=== PATIENT | male | born 1960 | race Caucasian/White ===

== ENCOUNTER 2017-11-22 09:35 | Inpatient (IN) | payer MEDICAID, OTHER ==
[2017-11-22 09:45] VITALS: BMI 29.9
[2017-11-22] MEDS ORDERED: Sodium Chloride 0.9% 1,000 ML IV STA ×2 (10:37→12:32)
--- NOTE | 2017-11-22 10:58 | ED PDOC ---
HPI: General Adult Time Seen by Provider: 11/22/17 09:59 Chief Complaint (Nursing): Fever Chief Complaint (Provider): fever History Per: Patient, Roll Forger (Kim BECERRIL) History/Exam Limitations: no limitations Current Symptoms Are (Timing): Still Present Severity: Moderate Recently: Treated By A Physician Additional Complaint(s): 57yo male recent arrived from [place], [place] recently been treated for recurrent UTIs [place] completed course of Abx last tuesday, Urine culture then negative, now back in ID area, and notes fever for last few days and slight decrease in urine output. Denies abd pain, vomiting, diarrhea, syncope, cough, SOB, headache or body aches. Past Medical History Reviewed: Historical Data, Nursing Documentation, Vital Signs Vital Signs: Last Vital Signs Temp 97.9 F 11/25/17 08:04 Pulse 69 11/25/17 08:04 Resp 18 11/25/17 08:04 BP 122/66 11/25/17 08:04 Pulse Ox 97 11/25/17 08:04 - Medical History PMH: Diabetes, HTN, End Stage Renal Disease, Chronic Kidney Disease - Surgical History Other surgeries: renal transplant - Family History Family History: States: Unknown Family Hx - Living Arrangements Living Arrangements: With Family - Social History Current smoker - smoking cessation education provided: No - Home Medications Home Medications: Ambulatory Orders Medication Instructions Recorded Insulin Detemir [Levemir] 15 unit SC BID 11/20/15 Bisoprolol [Zebeta] 2.5 mg PO DAILY 11/22/17 Cilostazol [Pletal] 50 mg PO DAILY 11/22/17 Ferrous Sulfate [Feosol] 325 mg PO DAILY 11/22/17 Insulin Detemir [Levemir] 20 unit SC ACL 11/22/17 Mycophenolate Mofetil 500 mg PO QPM 11/22/17 [Mycophenolate Mofetil] Mycophenolate Mofetil 750 mg PO QAM 11/22/17 [Mycophenolate Mofetil] Omeprazole [Omeprazole] 20 mg PO DAILY 11/22/17 Tacrolimus [Prograf Cap] 2 mg PO Q12 11/22/17 hydroCHLOROthiazide [Hydrodiuril] 25 mg PO DAILY 11/22/17 predniSONE [predniSONE Tab] 2.5 mg PO DAILY 11/22/17 - Allergies Allergies/Adverse Reactions: Allergies Allergy/AdvReac Type Severity Reaction Status Date / Time iron AdvReac blood Verified 11/22/17 16:02 pressure drops Review of Systems Constitutional: Positive for: Fever, Chills, Weakness, Malaise ENT: Negative for: Throat Pain Cardiovascular: Negative for: Chest Pain Respiratory: Negative for: Cough Gastrointestinal: Negative for: Vomiting, Abdominal Pain Genitourinary Male: Positive for: Dysuria, Other (decreased urination). Negative for: Incontinence Musculoskeletal: Negative for: Neck Pain Skin: Negative for: Rash, Lesions Neurological: Negative for: Weakness, Numbness Psych: Negative for: Anxiety Physical Exam - Reviewed Nursing Documentation Reviewed: Yes Vital Signs Reviewed: Yes - Physical Exam Appears: Positive for: Well, Non-toxic, No Acute Distress Head Exam: Positive for: ATRAUMATIC, NORMAL INSPECTION, NORMOCEPHALIC Skin: Positive for: Normal Color, Warm, DRY Eye Exam: Positive for: EOMI, Normal appearance, PERRL ENT: Positive for: Normal ENT Inspection. Negative for: Pharyngeal Erythema Neck: Positive for: Normal, Painless ROM Cardiovascular/Chest: Positive for: Regular Rate, Rhythm Respiratory: Positive for: CNT, Normal Breath Sounds Pulses-Radial (L): 3+/4+ Pulses-Radial (R): 3+/4+ Gastrointestinal/Abdominal: Positive for: Soft. Negative for: Tenderness, Guarding Back: Positive for: Normal Inspection Extremity: Positive for: Normal ROM. Negative for: Tenderness, Swelling Neurologic/Psych: Positive for: Alert, Oriented. Negative for: Motor/Sensory Deficits - Laboratory Results Result Diagrams: 11/25/17 05:55 11/25/17 05:55 - ECG ECG: Positive for: Interpreted By Me ECG Rhythm: Positive for: Normal QRS, Normal ST Segment, Sinus Rhythm. 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 This is because of the severity of symptoms shown, intensity of services needed, and/or the medical risk in this patient being treated as an outpatient. - POA Present On Arrival: Poor Glycemic Control, Cath Associated UTI
[2017-11-22 11:45] LABS: VENOUS BLOOD GAS BASE EXCESS -2.8 mmol/L (0.0-2.0); VENOUS BLOOD GAS PCO2 41 mmHg (40-60); VENOUS BLOOD GAS PO2 36 mm/Hg (30-55); VENOUS BLOOD PH 7.35 (7.32-7.43)
[2017-11-22] MEDS ORDERED: Insulin Regular 100 units/ml IVP ONE (11:47)
[2017-11-22] MEDS ORDERED: Insulin Regular 100 units/ml ONE (11:53)
[2017-11-22 11:56] LABS: BASO # 0.1 K/uL (0.0-0.2); BASO % 0.7 % (0.0-2.0); EOS % 0.1 % (0.0-4.0); HEMOGLOBIN 10.2 g/dL (12.0-18.0); LYMPH # 0.8 K/uL (1.0-4.3); LYMPH % 4.9 % (20.0-40.0); MEAN CELL VOLUME 84.8 fl (80.0-94.0); MEAN CORPUSCULAR HGB CONC 31.9 g/dL (33.0-37.0); MEAN PLATELET VOLUME 11.6 fl (7.2-11.7); MONO # 1.9 K/uL (0.0-0.8); MONO % 11.9 % (0.0-10.0); NEUT # 13.1 K/uL (1.8-7.0); NEUT % 82.4 % (50.0-75.0); PLATELET COUNT 161 K/uL (130-400); RBC 3.76 Mil/uL (4.40-5.90); RED CELL DISTRIBUTION WIDTH 14.4 % (11.5-14.5); WHITE BLOOD COUNT 15.9 K/uL (4.8-10.8)
[2017-11-22 12:04] LABS: ALB/GLOB RATIO 0.9 (1.0-2.1); ALBUMIN 3.7 g/dL (3.5-5.0); CALCIUM 9.6 mg/dL (8.4-10.2); GFR AFRICAN-AMERICAN > 60; GFR NON-AFRICAN AMERICAN 52; LIPASE 20 U/L (23-300)
[2017-11-22 12:14] LABS: ALT/SGPT 42 U/L (21-72); AST/SGOT 25 U/L (17-59); BLOOD UREA NITROGEN 45 mg/dl (9-20)
[2017-11-22 12:28] LABS: SQUAMOUS EPITHIAL 2 /hpf (0-5); URINE BACTERIA MANY (<OCC); URINE BILIRUBIN NEGATIVE (NEGATIVE); URINE BLOOD SMALL (NEGATIVE); URINE CLARITY TURBID (Clear); URINE COLOR YELLOW (YELLOW); URINE GLUCOSE (UA) NEG (Normal); URINE LEUKOCYTE ESTERASE LARGE Leu/uL (Negative); URINE PROTEIN 30 mg/dL (NEGATIVE); URINE UROBILINOGEN 0.2-1.0 mg/dL (0.2-1.0); WBC CLUMPS FEW /hpf
[2017-11-22 12:32] LABS: BANDS 1 % (0-2); HYPOCHROMIC SLIGHT; LYMPHOCYTE 6 % (20-50); MONOCYTE 12 % (0-10); NEUTROPHIL 81 % (42-75); PLATELET ESTIMATE NORMAL (NORMAL); TOTAL CELLS COUNTED 100
[2017-11-22 12:33] LABS: TOXIC GRANULATION PRESENT
--- NOTE | 2017-11-22 12:33 | RAD ---
HISTORY: Fever COMPARISON: 04/30/2011. TECHNIQUE: Chest PA and lateral FINDINGS: LUNGS: No active pulmonary disease. PLEURA: No significant pleural effusion identified. No pneumothorax apparent. CARDIOVASCULAR: No radiographic findings to suggest acute or significant cardiovascular disease. OSSEOUS STRUCTURES: No significant abnormalities. VISUALIZED UPPER ABDOMEN: Normal. OTHER FINDINGS: None. IMPRESSION: No active disease. No significant interval change compared to the prior examination(s).
[2017-11-22] MEDS ORDERED: cefTRIAXone (Rocephin) 1 gm Inj ONE (13:28)
--- NOTE | 2017-11-22 13:41 | CARD ---
APPROVED REPORT EKG Measurement Heart [id number] <Conclusion> Normal sinus rhythm Possible Left atrial enlargement Borderline ECG
--- NOTE | 2017-11-22 14:40 | CP.PCM.HP ---
History of Present Illness - History of Present Illness History of Present Illness: 57 year old male with PMH of HTN, IDDMII, GERD and right renal transplant in [facility] on 01/18/16 presented to ED w/ complaints of fever (101.6 F tmax), chills, decreased urine output for last 3 days. Pt arrived from [facility] on 11/18/2017 . Pt reports he was recently hospitalized in [place] for 10 days for UTI. Pt received 7 days of IV abx (does not remember the name of ABX) and discharged from hospital on 11/13/17. Pt has been taking tylenol to control the fever. Currently, patient denies dysuria, hematuria, urinary frequency,urgency, abdominal pain, flank pain, nausea, vomiting, chest pain, cough, dyspnea or URI symptoms. Denies any sick contact. PMD[place], has PMD in Past medical hx: HTN, IDDMII, GERD and right renal transplant Allergies: IV Iron causes hypotension Medications: as per chart Surgical hx : Right renal transplant in 01/2016, Cyst on back of scalp Social hx : Patient denies history of ETOH, illicit drug use, and tobacco use Family hx: father has DMII, Denies any family hx CAD or CA ER course: VS: BP 160/68, HR 76, RR 18, Temp 100 F, pulse ox 97% Labs: CBC: Leukocytosis (wbc 15.9)with left shift CMP: k: 5.3, BUN/Cr: 45/1.4, Glucose 415, lactate 1.5 UA: moderate leukocytes, rbc 25, microscopic wbc 994, many bacteria EKG: NSR @87, no acute changes, CXR: No active disease Medications: 2L NS bolus, Rocephin 1 gm, humulin 4 units Present on Admission - Present on Admission Any Indicators Present on Admission: Yes Review of Systems - Constitutional Constitutional: Chills, Fever. absent: Night Sweats - EENT Eyes: absent: Blurred Vision Nose/Mouth/Throat: absent: Nasal Congestion, Sore Throat - Cardiovascular Cardiovascular: absent: Chest Pain, Chest Pain at Rest, Dyspnea - Respiratory Respiratory: absent: Cough, Dyspnea - Gastrointestinal Gastrointestinal: absent: Abdominal Pain, Constipation, Nausea, Vomiting - Genitourinary Genitourinary: Voiding Freq/Small Amts, Hx /Renal Surgery. absent: Dysuria, Hematuria - Neurological Neurological: absent: Dizziness, Headaches - Hematologic/Lymphatic Hematologic: absent: Easy Bleeding, Easy Bruising Past Patient History - Past Medical History & Family History Past Medical History?: Yes - Past Social History Smoking Status: Never Smoked - CARDIAC Hx Hypertension: Yes - PULMONARY Hx Respiratory Disorders: No - NEUROLOGICAL Hx Neurological Disorder: No - HEENT Hx HEENT Problems: No - RENAL Hx Chronic Kidney Disease: Yes - ENDOCRINE/METABOLIC Hx Endocrine Disorders: Yes - HEMATOLOGICAL/ONCOLOGICAL Hx Blood Disorders: No - INTEGUMENTARY Hx Dermatological Problems: No - MUSCULOSKELETAL/RHEUMATOLOGICAL Hx Musculoskeletal Disorders: No Hx Falls: No - GASTROINTESTINAL Hx Gastrointestinal Disorders: No - GENITOURINARY/GYNECOLOGICAL Hx Genitourinary Disorders: No - PSYCHIATRIC Hx Psychophysiologic Disorder: No Hx Substance Use: No - SURGICAL HISTORY Hx Kidney Transplant: Yes (2015) Hx Vascular Access Device: Yes - ANESTHESIA Hx Anesthesia: Yes Hx Anesthesia Reactions: No Meds Allergies/Adverse Reactions: Allergies Allergy/AdvReac Type Severity Reaction Status Date / Time iron AdvReac blood Verified 11/22/17 16:02 pressure drops Physical Exam - Constitutional Appears: Non-toxic, No Acute Distress - Head Exam Head Exam: ATRAUMATIC, NORMAL INSPECTION - Eye Exam Eye Exam: EOMI, Normal appearance, PERRL - ENT Exam ENT Exam: Mucous Membranes Moist, Normal Oropharynx - Neck Exam Neck exam: Positive for: Normal Inspection. Negative for: Lymphadenopathy - Respiratory Exam Respiratory Exam: Clear to Auscultation Bilateral, NORMAL BREATHING PATTERN. absent: Rales, Rhonchi, Wheezes - Cardiovascular Exam Cardiovascular Exam: REGULAR RHYTHM, RRR, +S1, +S2 - GI/Abdominal Exam GI & Abdominal Exam: Normal Bowel Sounds, Soft. absent: Tenderness Additional comments: Surgical scar on right mid abdomen, swelling on the right sided lower abdomen, non-tender. - Extremities Exam Extremities exam: Positive for: pedal pulses present Additional comments: Mild edema of right lateral ankle. Has healing ulcer on right lateral heel. No odor, discharge or erythema seen. - Back Exam Back exam: absent: CVA tenderness (L), CVA tenderness (R) - Neurological Exam Neurological exam: Alert, Oriented x3 - Psychiatric Exam Psychiatric exam: Normal Affect, Normal Mood - Skin Skin Exam: Normal Color, Warm Results - Vital Signs Recent Vital Signs: Last Vital Signs Temp 100 F H 11/22/17 10:12 Pulse 87 11/22/17 13:24 Resp 18 11/22/17 10:12 BP 160/68 H 11/22/17 10:12 Pulse Ox 97 11/22/17 13:24 - Labs Result Diagrams: 11/22/17 11:30 11/22/17 11:30 Labs: Laboratory Results - last 24 hr 11/22/17 11/22/17 11/22/17 11:02 11:30 11:30 WBC 15.9 H D RBC 3.76 L Hgb 10.2 L Hct 31.9 L MCV 84.8 D MCH 27.0 MCHC 31.9 L RDW 14.4 Plt Count 161 MPV 11.6 Neut % (Auto) 82.4 H Lymph % (Auto) 4.9 L Hopkins % (Auto) 11.9 H Eos % (Auto) 0.1 Baso % (Auto) 0.7 Neut # (Auto) 13.1 H Lymph # (Auto) 0.8 L Hopkins # (Auto) 1.9 H Eos # (Auto) 0.0 Baso # (Auto) 0.1 Neutrophils % (Manual) 81 H Band Neutrophils % 1 Lymphocytes % (Manual) 6 L Monocytes % (Manual) 12 H Toxic Granulation Present Platelet Estimate Normal Hypochromasia (manual) Slight pO2 36 VBG pH 7.35 VBG pCO2 41 VBG HCO3 22.2 VBG Total CO2 23.9 VBG O2 Sat (Calc) 73.1 H VBG Base Excess -2.8 L VBG Potassium 4.9 Sodium 132.0 135 Chloride 102.0 100 Glucose 415 H* Lactate 1.5 FiO2 21.0 Blood Gas Comments Vbg Crit Value Called To Magda green r.n. Crit Value Called By 14 Crit Value Read Back Y Blood Gas Notified Time 1145 Potassium 5.3 H Carbon Dioxide 18 L Anion Gap 22 H BUN 45 H Creatinine 1.4 Est GFR ( Amer) > 60 Est GFR (Non-Af Amer) 52 POC Glucose (mg/dL) Random Glucose 384 H Calcium 9.6 Total Bilirubin 0.8 AST 25 ALT 42 Alkaline Phosphatase 103 Total Protein 8.0 Albumin 3.7 Globulin 4.2 H Albumin/Globulin Ratio 0.9 L Lipase 20 L Venous Blood Potassium 4.9 Urine Color Urine Clarity Urine pH Ur Specific [place] Urine Protein Urine Glucose (UA) Urine Ketones Urine Blood Urine Nitrate Urine Bilirubin Urine Urobilinogen Ur Leukocyte Esterase Urine RBC (Auto) Urine WBC Clumps (Auto) Urine Microscopic WBC Ur Squamous Epith Cells Urine Bacteria 11/22/17 11/22/17 11/22/17 11:30 11:50 11:50 WBC RBC Hgb Hct MCV MCH MCHC RDW Plt Count MPV Neut % (Auto) Lymph % (Auto) Hopkins % (Auto) Eos % (Auto) Baso % (Auto) Neut # (Auto) Lymph # (Auto) Hopkins # (Auto) Eos # (Auto) Baso # (Auto) Neutrophils % (Manual) Band Neutrophils % Lymphocytes % (Manual) Monocytes % (Manual) Toxic Granulation Platelet Estimate Hypochromasia (manual) pO2 VBG pH VBG pCO2 VBG HCO3 VBG Total CO2 VBG O2 Sat (Calc) VBG Base Excess VBG Potassium Sodium Chloride Glucose Lactate FiO2 Blood Gas Comments Crit Value Called To Crit Value Called By Crit Value Read Back Blood Gas Notified Time Potassium Carbon Dioxide Anion Gap BUN Creatinine Est GFR ( Amer) Est GFR (Non-Af Amer) POC Glucose (mg/dL) 354 H 354 H Random Glucose Calcium Total Bilirubin AST ALT Alkaline Phosphatase Total Protein Albumin Globulin Albumin/Globulin Ratio Lipase Venous Blood Potassium Urine Color Yellow Urine Clarity Turbid Urine pH 6.0 Ur Specific [place] 1.014 Urine Protein 30 Urine Glucose (UA) Neg Urine Ketones Negative Urine Blood Small Urine Nitrate Negative Urine Bilirubin Negative Urine Urobilinogen 0.2-1.0 Ur Leukocyte Esterase Large Urine RBC (Auto) 25 H Urine WBC Clumps (Auto) Few H Urine Microscopic WBC 994 H Ur Squamous Epith Cells 2 Urine Bacteria Many H 11/22/17 12:56 WBC RBC Hgb Hct MCV MCH MCHC RDW Plt Count MPV Neut % (Auto) Lymph % (Auto) Hopkins % (Auto) Eos % (Auto) Baso % (Auto) Neut # (Auto) Lymph # (Auto) Hopkins # (Auto) Eos # (Auto) Baso # (Auto) Neutrophils % (Manual) Band Neutrophils % Lymphocytes % (Manual) Monocytes % (Manual) Toxic Granulation Platelet Estimate Hypochromasia (manual) pO2 VBG pH VBG pCO2 VBG HCO3 VBG Total CO2 VBG O2 Sat (Calc) VBG Base Excess VBG Potassium Sodium Chloride Glucose Lactate FiO2 Blood Gas Comments Crit Value Called To Crit Value Called By Crit Value Read Back Blood Gas Notified Time Potassium Carbon Dioxide Anion Gap BUN Creatinine Est GFR ( Amer) Est GFR (Non-Af Amer) POC Glucose (mg/dL) 286 H Random Glucose Calcium Total Bilirubin AST ALT Alkaline Phosphatase Total Protein Albumin Globulin Albumin/Globulin Ratio Lipase Venous Blood Potassium Urine Color Urine Clarity Urine pH Ur Specific [place] Urine Protein Urine Glucose (UA) Urine Ketones Urine Blood Urine Nitrate Urine Bilirubin Urine Urobilinogen Ur Leukocyte Esterase Urine RBC (Auto) Urine WBC Clumps (Auto) Urine Microscopic WBC Ur Squamous Epith Cells Urine Bacteria Assessment & Plan - Assessment and Plan (Free Text) Assessment: 57 year old male with PMH of HTN, IDDMII, GERD and right renal transplant in [facility] [place] on 01/18/16 admitted for recurrent UTI and hyperglycemia. Recurrent UTI -Immunocompromised s/p right renal transplant -Leukocytosis with left shift (wbc 15.9) -Received 1 gm rocephin in ED -Start Zosyn 3.375 gm IVPB Q6H -Monitor symptoms -F/U ID consult -f/u cbc in AM Acute Kidney injury -s/p right renal transplant -BUN/Cr: 45/1.5 -Received 2 L NS bolus in ED -Start NS @125 cc/hr -f/u BMP in AM IDDMII, uncontrolled -Likely secondary to infection -received 4 units of humulin in ED -Start levemir 20 units q12 -MDSS scale with hypoglycemic protocol -Accuchecks and ACHC -f/u A1C, lipid profile Hypertension - uncontrolled -continue home medication of HCTZ 25 mg po daily -continue to monitor Right renal transplant -c/w home medications Anemia -Likely anemia of chronic disease -H&H: 10.231.9 -on ferrous sulfate daily -f/u ferritin Right heel ulcer -chronic -No signs of infection -monitor Diet -Consistent carbohydrate renal diet DVT prophylaxis -SCD'S -Lovenox 40 mg SC daily
[2017-11-22] MEDS ORDERED: Piperacillin/Tazobact 3.375 GM in Sodium Chloride 0.9% 100 ML IVPB SCH (16:00)
[2017-11-22] MEDS: Piperacillin/Tazobact 3.375 GM in Sodium Chloride 0.9% 100 ML IVPB SCH ×2 (17:37→21:35)
[2017-11-22] MEDS: Insulin Regular 100 units/ml SC SCH ×2 (17:38→23:06)
[2017-11-22] MEDS: Sodium Chloride 0.9% 1,000 ML IV SCH ×2 (17:41→22:05)
[2017-11-22] MEDS: Insulin Detemir 100 Units/ml Inj SC SCH (21:35)
[2017-11-23] MEDS: Piperacillin/Tazobact 3.375 GM in Sodium Chloride 0.9% 100 ML IVPB SCH ×4 (03:42→22:22)
[2017-11-23] MEDS: Sodium Chloride 0.9% 1,000 ML IV SCH ×2 (03:44→06:03)
[2017-11-23] MEDS: Insulin Regular 100 units/ml SC SCH ×4 (06:04→22:27)
[2017-11-23 06:25] LABS: BASO # 0.1 K/uL (0.0-0.2); BASO % 0.4 % (0.0-2.0); EOS % 0.3 % (0.0-4.0); HEMOGLOBIN 10.2 g/dL (12.0-18.0); LYMPH # 1.6 K/uL (1.0-4.3); LYMPH % 11.7 % (20.0-40.0); MEAN CELL VOLUME 84.3 fl (80.0-94.0); MEAN CORPUSCULAR HEMOGLOBIN 26.5 pg (27.0-31.0); MEAN CORPUSCULAR HGB CONC 31.4 g/dL (33.0-37.0); MEAN PLATELET VOLUME 10.2 fl (7.2-11.7); MONO # 2.2 K/uL (0.0-0.8); MONO % 15.9 % (0.0-10.0); NEUT # 10.1 K/uL (1.8-7.0); NEUT % 71.7 % (50.0-75.0); RBC 3.86 Mil/uL (4.40-5.90); RED CELL DISTRIBUTION WIDTH 14.2 % (11.5-14.5); WHITE BLOOD COUNT 14.1 K/uL (4.8-10.8)
[2017-11-23 06:39] LABS: LDL CHOLESTEROL 71 mg/dL (0-129)
--- NOTE | 2017-11-23 07:15 | CP.PCM.PN ---
Subjective - Date & Time of Evaluation Date of Evaluation: 11/23/17 Time of Evaluation: 08:05 - Subjective Subjective: Patient seen and examined at bedside this morning. Overnight events reviewed. Pt had fever of 102.5 F last night and fever was controlled with acetaminophen. Reports he had some chills with fever. Denies dysuria, hematuria, nausea, vomiting,flank pain or abdominal pain. Denies chest pain, cough, dyspnea, headache or dizziness. Pt is tolerating PO. Has regular BM and voiding regularly. Objective - Vital Signs/Intake and Output Vital Signs (last 24 hours): Temp Pulse Resp BP Pulse Ox 98.2 F 95 H 18 155/73 H 97 11/23/17 03:00 11/23/17 00:52 11/23/17 00:52 11/23/17 00:52 11/23/17 00:52 - Medications Medications: Current Medications Bisoprolol Fumarate (Zebeta) 2.5 mg PO DAILY [facility] Cilostazol (Pletal) 50 mg PO DAILY [facility] Enoxaparin Sodium (Lovenox) 40 mg SC DAILY [facility] PRN Reason: Protocol Ferrous Sulfate (Feosol) 325 mg PO DAILY [facility] Hydrochlorothiazide (Hydrodiuril) 25 mg PO DAILY [facility] Sodium Chloride (Sodium Chloride 0.9%) 1,000 mls @ 125 mls/hr IV .Q8H [facility] Stop: 11/23/17 13:56 Last Admin: 11/23/17 06:03 Dose: Not Given Piperacillin Sod/Tazobactam (Sod 3.375 gm/ Sodium Chloride) 100 mls @ 100 mls/ hr IVPB Q6 [facility] PRN Reason: Protocol Last Admin: 11/23/17 03:42 Dose: 100 mls/hr Insulin Detemir (Levemir) 20 units SC Q12 [facility] Last Admin: 11/22/17 21:35 Dose: 20 unit Insulin Human Regular (Humulin R) 0 units SC ACCU-CHECK [facility] PRN Reason: Protocol Last Admin: 11/23/17 06:04 Dose: Not Given Mycophenolate Mofetil (Cellcept) 500 mg PO QPM [facility] Last Admin: 11/22/17 17:38 Dose: 500 mg Mycophenolate Mofetil (Cellcept Cap) 750 mg PO QAM [facility] Pantoprazole Sodium (Protonix Ec Tab) 20 mg PO DAILY [facility] Prednisone (Prednisone Tab) 2.5 mg PO DAILY [facility] Tacrolimus (Prograf Cap) 2 mg PO Q12 [facility] Last Admin: 11/22/17 21:35 Dose: Not Given - Labs Labs: 11/23/17 06:05 11/23/17 06:05 - Additional Findings Additional findings: - Constitutional Appears: Non-toxic, No Acute Distress - Head Exam Head Exam: ATRAUMATIC, NORMAL INSPECTION - Eye Exam Eye Exam: EOMI, Normal appearance - ENT Exam ENT Exam: Mucous Membranes Moist, Normal Oropharynx - Neck Exam Neck exam: Positive for: Normal Inspection. Negative for: Lymphadenopathy - Respiratory Exam Respiratory Exam: Clear to Auscultation Bilateral, NORMAL BREATHING PATTERN. absent: Rales, Rhonchi, Wheezes - Cardiovascular Exam Cardiovascular Exam: REGULAR RHYTHM, RRR, +S1, +S2 - GI/Abdominal Exam GI & Abdominal Exam: Normal Bowel Sounds, Soft. absent: Tenderness Additional comments: Surgical scar on right lateral mid abdomen, swelling on the right sided lower abdomen likely the trasplanted kidney, non-tender. - Extremities Exam Extremities exam: Positive for: pedal pulses present Additional comments: Mild edema of right lateral ankle. Has healing ulcer on right lateral heel. No odor, discharge or erythema seen. - Back Exam Back exam: absent: CVA tenderness (L), CVA tenderness (R) - Neurological Exam Neurological exam: Alert, Oriented x3 - Psychiatric Exam Psychiatric exam: Normal Affect, Normal Mood - Skin Skin Exam: Normal Color, Warm Assessment and Plan - Assessment and Plan (Free Text) Assessment: 57 year old male with PMH of HTN, IDDMII, GERD and right renal transplant in [place] on 01/18/16 admitted for suspected sepsis and hyperglycemia. Sepsis -likely secondary to recurrent UTI -Immunocompromised s/p right renal transplant -Leukocytosis trending down ( wbc 14.1 this morning) -Continue Zosyn 3.375 gm IVPB Q6H ( day 2), received 1 gm rocephin in ED -Had fever 102.5 F last night, -ID consult appreciated -f/u cbc in AM, blood cx and urine cx Acute Kidney injury -s/p right renal transplant -Improving -BUN/Cr: 25/1.2 this morning -Received 2 L NS bolus in ED -Continue NS @100 cc/hr -f/u BMP in AM IDDMII -Improving (BG 109 this AM) -Continue levemir 20 units q12 -MDSS scale with hypoglycemic protocol -Accuchecks and ACHC -f/u A1C, lipid profile Hypertension -uncontrolled -Asymptomatic -continue home medication of HCTZ 25 mg po daily -Will consider increase HCTZ or additional meds if BP is elevated continuously. Right renal transplant -c/w home medications Anemia -Likely anemia of chronic disease -H&H: 10.2/32.5 -on ferrous sulfate daily -Ferritin 2270 today -F/U iron/tibc Right heel ulcer -chronic -No signs of infection -monitor Diet -Consistent carbohydrate renal diet DVT prophylaxis -SCD'S -Lovenox 40 mg SC daily
[2017-11-23 07:27] LABS: ALB/GLOB RATIO 0.8 (1.0-2.1); ALBUMIN 3.4 g/dL (3.5-5.0); ALT/SGPT 39 U/L (21-72); AST/SGOT 23 U/L (17-59); BLOOD UREA NITROGEN 25 mg/dl (9-20); CALCIUM 9.8 mg/dL (8.4-10.2); GFR AFRICAN-AMERICAN > 60; GFR NON-AFRICAN AMERICAN > 60; HDL CHOLESTEROL 27 MG/DL (30-70)
[2017-11-23] MEDS: Cilostazol 50 mg Tab UD PO SCH (08:42)
[2017-11-23] MEDS: Enoxaparin 40 mg Syringe SC SCH (08:43)
[2017-11-23] MEDS: Pantoprazole 20 mg EC Tab PO SCH (08:43)
[2017-11-23] MEDS: Insulin Detemir 100 Units/ml Inj SC SCH ×2 (08:44→21:20)
[2017-11-23] MEDS ORDERED: Enoxaparin 30 mg Syringe SC SCH (09:00)
[2017-11-23] MEDS ORDERED: Sodium Chloride 0.9% 1,000 ML IV SCH (09:57)
[2017-11-23 11:27] LABS: IRON 25 ug/dL (49-181)
[2017-11-23 11:36] LABS: % IRON SATURATION 12 % (20-55); TOTAL IRON BINDING CAPACITY 204 ug/dL (250-450)
--- NOTE | 2017-11-23 14:08 | CP.PCM.CON ---
History of Present Illness - History of Present Illness History of Present Illness: 57 year old male with right renal transplant in [facility] on presented to ED w/ complaints of fever (101.6 F tmax), chills, decreased urine output for last 3 days. Pt arrived from [facility] on 11/18/2017 . Pt reports he was recently hospitalized in for 10 days for UTI. Pt received 7 days of IV abx (does not remember the name of ABX) and discharged from hospital on 11/13/17. ID consulted- concern for ESBL transplant pyelonephritis ? await cultures Past medical hx: HTN, IDDMII, GERD and right renal transplant Allergies: IV Iron causes hypotension Medications: as per chart Surgical hx : Right renal transplant in 01/2016, Cyst on back of scalp Social hx : Patient denies history of ETOH, illicit drug use, and tobacco use Family hx: father has DMII, Denies any family hx CAD or CA Review of Systems - Review of Systems All systems: reviewed and no additional remarkable complaints except Past Patient History - Past Medical History & Family History Past Medical History?: Yes - Past Social History Smoking Status: Never Smoked - CARDIAC Hx Hypertension: Yes - PULMONARY Hx Respiratory Disorders: No - NEUROLOGICAL Hx Neurological Disorder: No - HEENT Hx HEENT Problems: No - RENAL Hx Chronic Kidney Disease: Yes - ENDOCRINE/METABOLIC Hx Endocrine Disorders: Yes - HEMATOLOGICAL/ONCOLOGICAL Hx Blood Disorders: No - INTEGUMENTARY Hx Dermatological Problems: No - MUSCULOSKELETAL/RHEUMATOLOGICAL Hx Musculoskeletal Disorders: No Hx Falls: No - GASTROINTESTINAL Hx Gastrointestinal Disorders: No - GENITOURINARY/GYNECOLOGICAL Hx Genitourinary Disorders: No - PSYCHIATRIC Hx Psychophysiologic Disorder: No Hx Substance Use: No - SURGICAL HISTORY Hx Kidney Transplant: Yes (2015) Hx Vascular Access Device: Yes - ANESTHESIA Hx Anesthesia: Yes Hx Anesthesia Reactions: No Meds Allergies/Adverse Reactions: Allergies Allergy/AdvReac Type Severity Reaction Status Date / Time iron AdvReac blood Verified 11/22/17 16:02 pressure drops - Medications Medications: Current Medications Acetaminophen (Tylenol 325mg Tab) 650 mg PO Q6 PRN PRN Reason: Fever >100.4 F Last Admin: 11/23/17 08:40 Dose: 650 mg Bisoprolol Fumarate (Zebeta) 2.5 mg PO DAILY [facility] Last Admin: 11/23/17 08:42 Dose: 2.5 mg Cilostazol (Pletal) 50 mg PO DAILY [facility] Last Admin: 11/23/17 08:42 Dose: 50 mg Enoxaparin Sodium (Lovenox) 40 mg SC DAILY [facility] PRN Reason: Protocol Last Admin: 11/23/17 08:43 Dose: 40 mg Hydrochlorothiazide (Hydrodiuril) 25 mg PO DAILY [facility] Last Admin: 11/23/17 08:41 Dose: 25 mg Piperacillin Sod/Tazobactam (Sod 3.375 gm/ Sodium Chloride) 100 mls @ 100 mls/ hr IVPB Q6 [facility] PRN Reason: Protocol Last Admin: 11/23/17 09:00 Dose: 100 mls/hr Insulin Detemir (Levemir) 20 units SC Q12 [facility] Last Admin: 11/23/17 08:44 Dose: 20 unit Insulin Human Regular (Humulin R) 0 units SC ACCU-CHECK [facility] PRN Reason: Protocol Last Admin: 11/23/17 12:34 Dose: 3 units Mycophenolate Mofetil (Cellcept) 500 mg PO QPM [facility] Last Admin: 11/22/17 17:38 Dose: 500 mg Mycophenolate Mofetil (Cellcept Cap) 750 mg PO QAM [facility] Last Admin: 11/23/17 08:42 Dose: 750 mg Pantoprazole Sodium (Protonix Ec Tab) 20 mg PO DAILY [facility] Last Admin: 11/23/17 08:43 Dose: 20 mg Prednisone (Prednisone Tab) 2.5 mg PO DAILY [facility] Last Admin: 11/23/17 08:43 Dose: 2.5 mg Tacrolimus (Prograf Cap) 2 mg PO Q12 [facility] Last Admin: 11/23/17 08:41 Dose: 2 mg Physical Exam - Constitutional Appears: Chronically Ill - Head Exam Head Exam: ATRAUMATIC, NORMOCEPHALIC - Eye Exam Eye Exam: PERRL. absent: Scleral icterus - ENT Exam ENT Exam: Mucous Membranes Dry, Normal External Ear Exam - Neck Exam Neck exam: Negative for: Lymphadenopathy - Respiratory Exam Respiratory Exam: Decreased Breath Sounds, Clear to Auscultation Bilateral - Cardiovascular Exam Cardiovascular Exam: REGULAR RHYTHM, +S1, +S2 - GI/Abdominal Exam GI & Abdominal Exam: Diminished Bowel Sounds, Distended, Soft. absent: Guarding , Rebound, Rigid, Tenderness Additional comments: rlq transpalant kidney with abd wall hernia - Rectal Exam Rectal Exam: Deferred - Exam Exam: NORMAL INSPECTION - Extremities Exam Extremities exam: Negative for: pedal edema - Back Exam Back exam: absent: CVA tenderness (L), CVA tenderness (R) - Neurological Exam Neurological exam: Alert, CN II-XII Intact, Oriented x3, Reflexes Normal - Psychiatric Exam Psychiatric exam: Normal Mood - Skin Skin Exam: Dry Additional comments: healed ulcers bilateral calcaneus Results - Vital Signs Recent Vital Signs: Last Vital Signs Temp 98.1 F 11/23/17 12:46 Pulse 89 11/23/17 07:58 Resp 20 11/23/17 07:58 BP 171/80 H 11/23/17 07:58 Pulse Ox 97 11/23/17 07:58 - Labs Result Diagrams: 11/23/17 06:05 11/23/17 06:05 Labs: Laboratory Results - last 24 hr 11/22/17 11/22/17 11/23/17 16:14 21:18 05:33 WBC RBC Hgb Hct MCV MCH MCHC RDW Plt Count MPV Neut % (Auto) Lymph % (Auto) [place] % (Auto) Eos % (Auto) Baso % (Auto) Neut # (Auto) Lymph # (Auto) [place] # (Auto) Eos # (Auto) Baso # (Auto) Sodium Potassium Chloride Carbon Dioxide Anion Gap BUN Creatinine Est GFR ( Amer) Est GFR (Non-Af Amer) POC Glucose (mg/dL) 283 H 213 H 109 Random Glucose Hemoglobin A1c Calcium Iron TIBC % Saturation Ferritin Total Bilirubin AST ALT Alkaline Phosphatase Total Protein Albumin Globulin Albumin/Globulin Ratio Triglycerides Cholesterol LDL Cholesterol Direct HDL Cholesterol 11/23/17 11/23/17 11/23/17 06:05 06:05 06:05 WBC 14.1 H RBC 3.86 L Hgb 10.2 L Hct 32.5 L MCV 84.3 MCH 26.5 L MCHC 31.4 L RDW 14.2 Plt Count 133 MPV 10.2 Neut % (Auto) 71.7 Lymph % (Auto) 11.7 L [place] % (Auto) 15.9 H Eos % (Auto) 0.3 Baso % (Auto) 0.4 Neut # (Auto) 10.1 H Lymph # (Auto) 1.6 [place]eman # (Auto) 2.2 H Eos # (Auto) 0.0 Baso # (Auto) 0.1 Sodium 139 Potassium 4.3 Chloride 107 Carbon Dioxide 23 Anion Gap 13 BUN 25 H Creatinine 1.2 Est GFR ( Amer) > 60 Est GFR (Non-Af Amer) > 60 POC Glucose (mg/dL) Random Glucose 120 H Hemoglobin A1c 9.0 H D Calcium 9.8 Iron TIBC % Saturation Ferritin 2270.0 H Total Bilirubin 0.5 AST 23 ALT 39 Alkaline Phosphatase 102 Total Protein 7.6 Albumin 3.4 L Globulin 4.2 H Albumin/Globulin Ratio 0.8 L Triglycerides 190 H D Cholesterol 167 LDL Cholesterol Direct 71 HDL Cholesterol 27 L 11/23/17 11/23/17 10:51 10:51 WBC RBC Hgb Hct MCV MCH MCHC RDW Plt Count MPV Neut % (Auto) Lymph % (Auto) [place] % (Auto) Eos % (Auto) Baso % (Auto) Neut # (Auto) Lymph # (Auto) [place] # (Auto) Eos # (Auto) Baso # (Auto) Sodium Potassium Chloride Carbon Dioxide Anion Gap BUN Creatinine Est GFR ( Amer) Est GFR (Non-Af Amer) POC Glucose (mg/dL) Random Glucose Hemoglobin A1c Calcium Iron 25 L TIBC 204 L % Saturation 12 L Ferritin Cancelled Total Bilirubin AST ALT Alkaline Phosphatase Total Protein Albumin Globulin Albumin/Globulin Ratio Triglycerides Cholesterol LDL Cholesterol Direct HDL Cholesterol Assessment & Plan (1) UTI (urinary tract infection) Status: Acute (2) UTI (urinary tract infection) Status: Acute (3) Renal transplant recipient Status: Acute (4) Renal transplant recipient Status: Acute (5) Diabetes Status: Acute (6) HTN (hypertension) Status: Acute - Assessment and Plan (Free Text) Assessment: consider ultrasound transplant kidney recc nephrology eval cont iv antibiotics concern for ESBL- may need long course of rx ??
--- NOTE | 2017-11-23 18:54 | US ---
PROCEDURE: Ultrasound of the Kidneys HISTORY: sepsis, hx right renal transplant in 01/2016 COMPARISON: None available. TECHNIQUE: Sonogram of the kidneys. FINDINGS: RIGHT KIDNEY: Measures: 9.0 cm. Echogenic kidney. No stone, solid mass lesion or hydronephrosis visualized. LEFT KIDNEY: Measures: cm. Echogenic kidney No stone, solid mass lesion or hydronephrosis visualized. OTHER FINDINGS: Right iliac fossa transplant kidney shows normal cortical thickness and echogenicity. No hydronephrosis. Normal renal arterial waveform. No evidence of renal venous thrombosis. IMPRESSION: Unremarkable transplant kidney.
[2017-11-24] MEDS: Piperacillin/Tazobact 3.375 GM in Sodium Chloride 0.9% 100 ML IVPB SCH ×2 (04:41→09:00)
[2017-11-24 06:21] LABS: HEMOGLOBIN 10.4 g/dL (12.0-18.0); MEAN CELL VOLUME 84.5 fl (80.0-94.0); MEAN CORPUSCULAR HEMOGLOBIN 26.9 pg (27.0-31.0); MEAN CORPUSCULAR HGB CONC 31.8 g/dL (33.0-37.0); RBC 3.88 Mil/uL (4.40-5.90); RED CELL DISTRIBUTION WIDTH 14.3 % (11.5-14.5); WHITE BLOOD COUNT 9.7 K/uL (4.8-10.8)
[2017-11-24 06:36] LABS: BLOOD UREA NITROGEN 24 mg/dl (9-20); CALCIUM 10.3 mg/dL (8.4-10.2); GFR AFRICAN-AMERICAN > 60; GFR NON-AFRICAN AMERICAN > 60
--- NOTE | 2017-11-24 06:49 | CP.PCM.PN ---
Subjective - Date & Time of Evaluation Date of Evaluation: 11/24/17 Time of Evaluation: 07:25 - Subjective Subjective: Patient seen and examined this morning. No acute overnight events. Denies any fever, chills, dysuria, hematuria, nausea, vomiting,flank pain or abdominal pain. Denies chest pain, cough, dyspnea, headache or dizziness. Pt is tolerating PO. Has regular BM and voiding regularly. Objective - Vital Signs/Intake and Output Vital Signs (last 24 hours): Temp Pulse Resp BP Pulse Ox 97.5 F L 80 19 165/86 H 96 11/24/17 00:03 11/24/17 00:03 11/24/17 00:03 11/24/17 00:03 11/24/17 00:03 Intake and Output: 11/23/17 11/24/17 18:59 06:59 Intake Total 1325 Balance 1325 - Medications Medications: Current Medications Acetaminophen (Tylenol 325mg Tab) 650 mg PO Q6 PRN PRN Reason: Fever >100.4 F Last Admin: 11/23/17 08:40 Dose: 650 mg Bisoprolol Fumarate (Zebeta) 2.5 mg PO DAILY [facility] Last Admin: 11/23/17 08:42 Dose: 2.5 mg Cilostazol (Pletal) 50 mg PO DAILY [facility] Last Admin: 11/23/17 08:42 Dose: 50 mg Enoxaparin Sodium (Lovenox) 40 mg SC DAILY [facility] PRN Reason: Protocol Last Admin: 11/23/17 08:43 Dose: 40 mg Hydrochlorothiazide (Hydrodiuril) 25 mg PO DAILY [facility] Last Admin: 11/23/17 08:41 Dose: 25 mg Piperacillin Sod/Tazobactam (Sod 3.375 gm/ Sodium Chloride) 100 mls @ 100 mls/ hr IVPB Q6 [facility] PRN Reason: Protocol Last Admin: 11/24/17 04:41 Dose: 100 mls/hr Insulin Detemir (Levemir) 20 units SC Q12 [facility] Last Admin: 11/23/17 21:20 Dose: 20 unit Insulin Human Regular (Humulin R) 0 units SC ACCU-CHECK [facility] PRN Reason: Protocol Last Admin: 11/23/17 22:27 Dose: Not Given Mycophenolate Mofetil (Cellcept) 500 mg PO QPM [facility] Last Admin: 11/23/17 17:00 Dose: 500 mg Mycophenolate Mofetil (Cellcept Cap) 750 mg PO QAM [facility] Last Admin: 11/23/17 08:42 Dose: 750 mg Pantoprazole Sodium (Protonix Ec Tab) 20 mg PO DAILY [facility] Last Admin: 11/23/17 08:43 Dose: 20 mg Prednisone (Prednisone Tab) 2.5 mg PO DAILY [facility] Last Admin: 11/23/17 08:43 Dose: 2.5 mg Tacrolimus (Prograf Cap) 2 mg PO Q12 [facility] Last Admin: 11/23/17 21:20 Dose: 2 mg - Labs Labs: 11/24/17 06:05 11/24/17 06:05 - Additional Findings Additional findings: - Constitutional Appears: Non-toxic, No Acute Distress - Head Exam Head Exam: ATRAUMATIC, NORMAL INSPECTION - Eye Exam Eye Exam: EOMI, Normal appearance - ENT Exam ENT Exam: Mucous Membranes Moist, Normal Oropharynx - Neck Exam Neck exam: Positive for: Normal Inspection. Negative for: Lymphadenopathy - Respiratory Exam Respiratory Exam: Clear to Auscultation Bilateral, NORMAL BREATHING PATTERN. absent: Rales, Rhonchi, Wheezes - Cardiovascular Exam Cardiovascular Exam: REGULAR RHYTHM, RRR, +S1, +S2 - GI/Abdominal Exam GI & Abdominal Exam: Normal Bowel Sounds, Soft. absent: Tenderness Additional comments: Surgical scar on right lateral mid abdomen, transplanted kidney in the right lower abdomen, non-tender. - Extremities Exam Extremities exam: Positive for: pedal pulses present Additional comments: Mild edema of right lateral ankle and foot. Has healing ulcer on right lateral heel. No odor, discharge or erythema seen. Neurovascular intact - Back Exam Back exam: absent: CVA tenderness (L), CVA tenderness (R) - Neurological Exam Neurological exam: Alert, Oriented x3 - Psychiatric Exam Psychiatric exam: Normal Affect, Normal Mood - Skin Skin Exam: Normal Color, Warm Assessment and Plan - Assessment and Plan (Free Text) Assessment: 57 year old male with PMH of HTN, IDDMII, GERD and right renal transplant in [place] on 01/18/16 admitted for suspected sepsis and hyperglycemia. Urosepsis -Urine cx on 11/22/17: Klebsiella pneumoniae ssp, resistant to Zosyn, and sensitive to meropenem -Immunocompromised s/p right renal transplant -Leukocytosis trending down ( wbc 9.7 this morning) -Start meropenem 500mg IVP Q8 (day 1 of 14) -D/C Zosyn ( received 3 days) -Afebrile overnight -ID on board -blood cx: no growth after 24 hrs -Renal US on 11/23/17: Unremarkable transplanted kidney -Nephrology consult appreciated Acute Kidney injury -s/p right renal transplant -Improving -BUN/Cr: 24/1.2 this morning -Nephrology consult appreciated IDDMII -Elevated in 200's -Continue levemir 20 units q12 -Start metformin 500 mg po qam -MDSS scale with hypoglycemic protocol -Accuchecks and ACH -A1C: 9.0 Hypertension -uncontrolled -Asymptomatic -continue home medication of HCTZ 25 mg po daily Right renal transplant -c/w home medications -Renal us: Unremarkable transplanted kidney Anemia -Likely anemia of chronic disease -H&H: 10.4/32.8 -on ferrous sulfate daily -On weekly epoetin lela 4000 units/ml SC at home Right heel ulcer -chronic -No signs of infection -monitor Diet -Consistent carbohydrate renal diet DVT prophylaxis -SCD'S -Lovenox 40 mg SC daily
[2017-11-24] MEDS: Insulin Regular 100 units/ml SC SCH ×4 (07:42→22:04)
[2017-11-24] MEDS: Pantoprazole 20 mg EC Tab PO SCH (08:42)
[2017-11-24] MEDS: Cilostazol 50 mg Tab UD PO SCH (08:42)
[2017-11-24] MEDS: Enoxaparin 40 mg Syringe SC SCH (08:43)
[2017-11-24] MEDS: Insulin Detemir 100 Units/ml Inj SC SCH ×2 (09:05→22:00)
--- NOTE | 2017-11-24 11:04 | CP.PCM.CON ---
History of Present Illness - History of Present Illness History of Present Illness: 57 y/o male with Hx/o donor kidney Tx in January 2016 in [place],frequent UTIs was on Abx untill a week ago again presented to ER for fever of 101.6 & chills. Urinalysis had shown pyuria. Renal consult is requested for evaluation of CKD & kidney Tx status. Pt states miguel kidney failure was due to diabetes Denied Hx/o heart disease. Pt also has HTN & long standing DM. Review of Systems - Constitutional Constitutional: As Per HPI, Chills - Respiratory Respiratory: As Per HPI - Gastrointestinal Gastrointestinal: As Per HPI - Genitourinary Genitourinary: Freq UTI Additional comments: No CVA tenderness Past Patient History - Past Medical History & Family History Past Medical History?: Yes - Past Social History Smoking Status: Never Smoked - CARDIAC Hx Hypertension: Yes - PULMONARY Hx Respiratory Disorders: No - NEUROLOGICAL Hx Neurological Disorder: No - HEENT Hx HEENT Problems: No - RENAL Hx Chronic Kidney Disease: Yes Hx Kidney Stones: No Hx Renal (Kidney) Cancer: No - ENDOCRINE/METABOLIC Hx Endocrine Disorders: Yes Hx Diabetes Insipidus: Yes - HEMATOLOGICAL/ONCOLOGICAL Hx Blood Disorders: No - INTEGUMENTARY Hx Dermatological Problems: No - MUSCULOSKELETAL/RHEUMATOLOGICAL Hx Musculoskeletal Disorders: No Hx Falls: No - GASTROINTESTINAL Hx Gastrointestinal Disorders: No - GENITOURINARY/GYNECOLOGICAL Hx Genitourinary Disorders: No - PSYCHIATRIC Hx Psychophysiologic Disorder: No Hx Substance Use: No - SURGICAL HISTORY Hx Kidney Transplant: Yes (2015) Hx Vascular Access Device: Yes - ANESTHESIA Hx Anesthesia: Yes Hx Anesthesia Reactions: No Meds Allergies/Adverse Reactions: Allergies Allergy/AdvReac Type Severity Reaction Status Date / Time iron AdvReac blood Verified 11/22/17 16:02 pressure drops - Medications Medications: Current Medications Acetaminophen (Tylenol 325mg Tab) 650 mg PO Q6 PRN PRN Reason: Fever >100.4 F Last Admin: 11/23/17 08:40 Dose: 650 mg Bisoprolol Fumarate (Zebeta) 2.5 mg PO DAILY [facility] Last Admin: 11/24/17 08:43 Dose: 2.5 mg Cilostazol (Pletal) 50 mg PO DAILY [facility] Last Admin: 11/24/17 08:42 Dose: 50 mg Enoxaparin Sodium (Lovenox) 40 mg SC DAILY [facility] PRN Reason: Protocol Last Admin: 11/24/17 08:43 Dose: 40 mg Hydrochlorothiazide (Hydrodiuril) 25 mg PO DAILY [facility] Last Admin: 11/24/17 08:42 Dose: 25 mg Meropenem 500 mg/ Sodium (Chloride) 100 mls @ 100 mls/hr IVPB Q8 [facility] PRN Reason: Protocol Stop: 12/08/17 10:46 Insulin Detemir (Levemir) 20 units SC Q12 [facility] Last Admin: 11/24/17 09:05 Dose: 20 unit Insulin Human Regular (Humulin R) 0 units SC ACCU-CHECK [facility] PRN Reason: Protocol Last Admin: 11/24/17 07:42 Dose: Not Given Metformin HCl (Glucophage) 500 mg PO BRK [facility] Last Admin: 11/24/17 08:42 Dose: 500 mg Mycophenolate Mofetil (Cellcept) 500 mg PO QPM [facility] Last Admin: 11/23/17 17:00 Dose: 500 mg Mycophenolate Mofetil (Cellcept Cap) 750 mg PO QAM [facility] Last Admin: 11/24/17 08:42 Dose: 750 mg Pantoprazole Sodium (Protonix Ec Tab) 20 mg PO DAILY [facility] Last Admin: 11/24/17 08:42 Dose: 20 mg Prednisone (Prednisone Tab) 2.5 mg PO DAILY [facility] Last Admin: 11/24/17 08:43 Dose: 2.5 mg Tacrolimus (Prograf Cap) 2 mg PO Q12 [facility] Last Admin: 11/24/17 08:42 Dose: 2 mg Physical Exam - Constitutional Appears: No Acute Distress - Head Exam Head Exam: ATRAUMATIC, NORMOCEPHALIC - Eye Exam Eye Exam: Normal appearance - ENT Exam ENT Exam: Mucous Membranes Moist - Neck Exam Neck exam: Positive for: Full Rom Additional comments: JVD negative - Respiratory Exam Respiratory Exam: NORMAL BREATHING PATTERN Additional comments: Lungs clear with good air entry B/L - Cardiovascular Exam Cardiovascular Exam: REGULAR RHYTHM Additional comments: No gallos or rubs - GI/Abdominal Exam GI & Abdominal Exam: Soft Additional comments: Globular Nontender No tenderness swelling No tenderness or swellin over the allograft - Rectal Exam Rectal Exam: Deferred - Extremities Exam Additional comments: Edema of Rt foot Pedal pulses are palpable B/L Well healed scar over Rt heel.Lt heel also has small healed scar - Back Exam Back exam: NORMAL INSPECTION - Neurological Exam Neurological exam: Oriented x3 Additional comments: nofocal deficits & no tremors Results - Vital Signs Recent Vital Signs: Last Vital Signs Temp 98.3 F 11/24/17 07:45 Pulse 68 11/24/17 07:45 Resp 20 11/24/17 07:45 BP 123/71 11/24/17 07:45 Pulse Ox 99 11/24/17 07:45 - Labs Result Diagrams: 11/24/17 06:05 11/24/17 06:05 Labs: Laboratory Results - last 24 hr 11/23/17 11/23/17 11/23/17 06:05 10:33 10:51 WBC RBC Hgb Hct MCV MCH MCHC RDW Plt Count Sodium Potassium Chloride Carbon Dioxide Anion Gap BUN Creatinine Est GFR ( Amer) Est GFR (Non-Af Amer) POC Glucose (mg/dL) 249 H Random Glucose Hemoglobin A1c 9.0 H D Calcium Iron 25 L TIBC 204 L % Saturation 12 L Ferritin 11/23/17 11/23/17 11/23/17 10:51 15:39 20:59 WBC RBC Hgb Hct MCV MCH MCHC RDW Plt Count Sodium Potassium Chloride Carbon Dioxide Anion Gap BUN Creatinine Est GFR ( Amer) Est GFR (Non-Af Amer) POC Glucose (mg/dL) 204 H 251 H Random Glucose Hemoglobin A1c Calcium Iron TIBC % Saturation Ferritin Cancelled 11/24/17 11/24/17 11/24/17 05:30 06:05 06:05 WBC 9.7 RBC 3.88 L Hgb 10.4 L Hct 32.8 L MCV 84.5 MCH 26.9 L MCHC 31.8 L RDW 14.3 Plt Count 164 Sodium 142 Potassium 4.6 Chloride 106 Carbon Dioxide 21 L Anion Gap 20 BUN 24 H Creatinine 1.2 Est GFR ( Amer) > 60 Est GFR (Non-Af Amer) > 60 POC Glucose (mg/dL) 141 H Random Glucose 150 H Hemoglobin A1c Calcium 10.3 H Iron TIBC % Saturation Ferritin 11/24/17 10:41 WBC RBC Hgb Hct MCV MCH MCHC RDW Plt Count Sodium Potassium Chloride Carbon Dioxide Anion Gap BUN Creatinine Est GFR ( Amer) Est GFR (Non-Af Amer) POC Glucose (mg/dL) 267 H Random Glucose Hemoglobin A1c Calcium Iron TIBC % Saturation Ferritin Assessment & Plan - Assessment and Plan (Free Text) Assessment: S/P donor kidney Tx kidney TX Renal function remains stable. Renal US report reviewed There is no evidence of fluid collections. Recurrent UTIs on Abx per ID & culture reports are negative so far DM 11 HTN Venous insufficiency of RLL. Pts Doppler reports reviewed Plan: Abx per ID. ID on board Continue current immunosuppression regimen. Avoid potentially nephrotoxic meds [place] level is pending.
[2017-11-24] MEDS: Meropenem 500 MG in Sodium Chloride 0.9% 100 ML IVPB SCH ×2 (12:34→17:00)
[2017-11-24 13:02] LABS: CREATININE, RANDOM URINE 62.1 mg/dL
--- NOTE | 2017-11-24 17:43 | CP.PCM.PN ---
Subjective - Date & Time of Evaluation Date of Evaluation: 11/24/17 Time of Evaluation: 09:00 - Subjective Subjective: Pt arrived from [facility] on 11/18/2017 . Pt reports he was recently hospitalized in for 10 days for UTI. Pt received 7 days of IV abx (does not remember the name of ABX) and discharged from hospital on 11/13/17. ID consulted- concern for ESBL transplant pyelonephritis ? await cultures Objective - Vital Signs/Intake and Output Vital Signs (last 24 hours): Temp Pulse Resp BP Pulse Ox 98.6 F 78 20 135/72 98 11/24/17 16:34 11/24/17 16:34 11/24/17 16:34 11/24/17 16:34 11/24/17 16:34 - Medications Medications: Current Medications Acetaminophen (Tylenol 325mg Tab) 650 mg PO Q6 PRN PRN Reason: Fever >100.4 F Last Admin: 11/23/17 08:40 Dose: 650 mg Bisoprolol Fumarate (Zebeta) 2.5 mg PO DAILY [facility] Last Admin: 11/24/17 08:43 Dose: 2.5 mg Cilostazol (Pletal) 50 mg PO DAILY [facility] Last Admin: 11/24/17 08:42 Dose: 50 mg Enoxaparin Sodium (Lovenox) 40 mg SC DAILY [facility] PRN Reason: Protocol Last Admin: 11/24/17 08:43 Dose: 40 mg Hydrochlorothiazide (Hydrodiuril) 25 mg PO DAILY [facility] Last Admin: 11/24/17 08:42 Dose: 25 mg Meropenem 500 mg/ Sodium (Chloride) 100 mls @ 100 mls/hr IVPB Q8 [facility] PRN Reason: Protocol Stop: 12/08/17 10:46 Last Admin: 11/24/17 17:00 Dose: 100 mls/hr Insulin Detemir (Levemir) 20 units SC Q12 [facility] Last Admin: 11/24/17 09:05 Dose: 20 unit Insulin Human Regular (Humulin R) 0 units SC ACCU-CHECK [facility] PRN Reason: Protocol Last Admin: 11/24/17 17:02 Dose: 2 units Metformin HCl (Glucophage) 500 mg PO BRK [facility] Last Admin: 11/24/17 08:42 Dose: 500 mg Mycophenolate Mofetil (Cellcept) 500 mg PO QPM [facility] Last Admin: 11/24/17 17:02 Dose: 500 mg Mycophenolate Mofetil (Cellcept Cap) 750 mg PO QAM [facility] Last Admin: 11/24/17 08:42 Dose: 750 mg Pantoprazole Sodium (Protonix Ec Tab) 20 mg PO DAILY [facility] Last Admin: 11/24/17 08:42 Dose: 20 mg Prednisone (Prednisone Tab) 2.5 mg PO DAILY [facility] Last Admin: 11/24/17 08:43 Dose: 2.5 mg Tacrolimus (Prograf Cap) 2 mg PO Q12 [facility] Last Admin: 11/24/17 08:42 Dose: 2 mg - Labs Labs: 11/24/17 06:05 11/24/17 06:05 - Constitutional Appears: Non-toxic, Chronically Ill - Head Exam Head Exam: NORMOCEPHALIC - Eye Exam Eye Exam: PERRL - ENT Exam ENT Exam: Mucous Membranes Dry - Neck Exam Neck Exam: absent: Lymphadenopathy - Respiratory Exam Respiratory Exam: Decreased Breath Sounds - Cardiovascular Exam Cardiovascular Exam: REGULAR RHYTHM - GI/Abdominal Exam GI & Abdominal Exam: Distended, Soft - Rectal Exam Rectal Exam: Deferred Assessment and Plan (1) UTI (urinary tract infection) Status: Acute (2) UTI (urinary tract infection) Status: Acute (3) Renal transplant recipient Status: Acute (4) Renal transplant recipient Status: Acute (5) Diabetes Status: Acute (6) HTN (hypertension) Status: Acute - Assessment and Plan (Free Text) Assessment: Pt arrived from [facility] on 11/18/2017 . Pt reports he was recently hospitalized in for 10 days for UTI. now here with transplant pyelo ESBL + cont iv rx for 14 days
[2017-11-25] MEDS: Meropenem 500 MG in Sodium Chloride 0.9% 100 ML IVPB SCH ×3 (01:15→16:02)
[2017-11-25 06:08] LABS: HEMOGLOBIN 10.6 g/dL (12.0-18.0); MEAN CELL VOLUME 84.2 fl (80.0-94.0); MEAN CORPUSCULAR HEMOGLOBIN 27.3 pg (27.0-31.0); MEAN CORPUSCULAR HGB CONC 32.4 g/dL (33.0-37.0); RBC 3.87 Mil/uL (4.40-5.90); RED CELL DISTRIBUTION WIDTH 14.3 % (11.5-14.5); WHITE BLOOD COUNT 7.2 K/uL (4.8-10.8)
[2017-11-25 06:17] LABS: BLOOD UREA NITROGEN 24 mg/dl (9-20); CALCIUM 10.2 mg/dL (8.4-10.2); GFR AFRICAN-AMERICAN > 60; GFR NON-AFRICAN AMERICAN > 60
[2017-11-25] MEDS: Insulin Regular 100 units/ml SC SCH ×4 (07:21→22:00)
--- NOTE | 2017-11-25 07:32 | CP.PCM.PN ---
Subjective - Date & Time of Evaluation Date of Evaluation: 11/25/17 Time of Evaluation: 08:40 - Subjective Subjective: Patient seen and examined this morning. No acute overnight events. Afebrile for last 3 days ( last fever of 100.6F on 11/23/17 at 8:40). Pt is tolerating PO. Has regular BM and voiding regularly. Denies any fever, chills, dysuria, hematuria, nausea, vomiting,flank pain or abdominal pain. Denies chest pain, cough, dyspnea, headache or dizziness. Objective - Vital Signs/Intake and Output Vital Signs (last 24 hours): Temp Pulse Resp BP Pulse Ox 97.9 F 73 20 160/74 H 95 11/25/17 00:15 11/25/17 00:15 11/25/17 00:15 11/25/17 00:15 11/25/17 00:15 - Medications Medications: Current Medications Acetaminophen (Tylenol 325mg Tab) 650 mg PO Q6 PRN PRN Reason: Fever >100.4 F Last Admin: 11/23/17 08:40 Dose: 650 mg Bisoprolol Fumarate (Zebeta) 2.5 mg PO DAILY [facility] Last Admin: 11/24/17 08:43 Dose: 2.5 mg Cilostazol (Pletal) 50 mg PO DAILY [facility] Last Admin: 11/24/17 08:42 Dose: 50 mg Enoxaparin Sodium (Lovenox) 40 mg SC DAILY [facility] PRN Reason: Protocol Last Admin: 11/24/17 08:43 Dose: 40 mg Hydrochlorothiazide (Hydrodiuril) 25 mg PO DAILY [facility] Last Admin: 11/24/17 08:42 Dose: 25 mg Meropenem 500 mg/ Sodium (Chloride) 100 mls @ 100 mls/hr IVPB Q8 [facility] PRN Reason: Protocol Stop: 12/08/17 10:46 Last Admin: 11/25/17 01:15 Dose: 100 mls/hr Insulin Detemir (Levemir) 20 units SC Q12 [facility] Last Admin: 11/24/17 22:00 Dose: 20 unit Insulin Human Regular (Humulin R) 0 units SC ACCU-CHECK [facility] PRN Reason: Protocol Last Admin: 11/25/17 07:21 Dose: 2 units Metformin HCl (Glucophage) 500 mg PO BRK [facility] Last Admin: 11/24/17 08:42 Dose: 500 mg Mycophenolate Mofetil (Cellcept) 500 mg PO QPM [facility] Last Admin: 11/24/17 17:02 Dose: 500 mg Mycophenolate Mofetil (Cellcept Cap) 750 mg PO QAM [facility] Last Admin: 11/24/17 08:42 Dose: 750 mg Pantoprazole Sodium (Protonix Ec Tab) 20 mg PO DAILY [facility] Last Admin: 11/24/17 08:42 Dose: 20 mg Prednisone (Prednisone Tab) 2.5 mg PO DAILY [facility] Last Admin: 11/24/17 08:43 Dose: 2.5 mg Tacrolimus (Prograf Cap) 2 mg PO Q12 [facility] Last Admin: 11/24/17 22:00 Dose: 2 mg - Labs Labs: 11/25/17 05:55 11/25/17 05:55 - Additional Findings Additional findings: - Constitutional Appears: Non-toxic, No Acute Distress - Head Exam Head Exam: ATRAUMATIC, NORMAL INSPECTION - ENT Exam ENT Exam: Mucous Membranes Moist, Normal Oropharynx - Neck Exam Neck exam: Positive for: Normal Inspection. Negative for: Lymphadenopathy - Respiratory Exam Respiratory Exam: Clear to Auscultation Bilateral, NORMAL BREATHING PATTERN. absent: Rales, Rhonchi, Wheezes - Cardiovascular Exam Cardiovascular Exam: REGULAR RHYTHM, RRR, +S1, +S2 - GI/Abdominal Exam GI & Abdominal Exam: Normal Bowel Sounds, Soft. absent: Tenderness Additional comments: Transplanted kidney in the right lower abdomen, non-tender. - Extremities Exam Extremities exam: Positive for: pedal pulses present Additional comments: Mild edema of right lateral ankle and foot. Has healing ulcer on right lateral heel. No odor, discharge or erythema seen. Neurovascular intact - Back Exam Back exam: absent: CVA tenderness (L), CVA tenderness (R) - Neurological Exam Neurological exam: Alert, Oriented x3 - Psychiatric Exam Psychiatric exam: Normal Affect, Normal Mood - Skin Skin Exam: Normal Color, Warm Assessment and Plan - Assessment and Plan (Free Text) Assessment: 57 year old male with PMH of HTN, IDDMII, GERD and right renal transplant in [place] on 01/18/16 admitted for suspected sepsis and hyperglycemia. Urosepsis -Urine cx on 11/22/17: Klebsiella pneumoniae ssp, resistant to Zosyn, and sensitive to meropenem -Immunocompromised s/p right renal transplant -Leukocytosis trending down ( wbc 7.2 this morning) -Start meropenem 500mg IVP Q8 (day 2 of 14) -D/C Zosyn ( received 3 days) -Afebrile -ID and nephrology on board -blood cx: no growth after 48 hrs -Renal US on 11/23/17: Unremarkable transplanted kidney Elevated Ferritin level: -Last blood transfusion 2 yrs ago -On weekly epoetin lela 4000 units/ml SC at home for anemia -Ferritin level 2270 on 11/23/17 -F/U hematology recommendation Acute Kidney injury -s/p right renal transplant -Improving -BUN/Cr: 24/1.2 this morning -Nephrology on board IDDMII -Elevated in 200's -Continue levemir 20 units q12 -Continue metformin 500 mg po qam -MDSS scale with hypoglycemic protocol -Accuchecks and [facility] -A1C: 9.0 Hypertension -uncontrolled -Asymptomatic -continue home medication of HCTZ 25 mg po daily Right renal transplant -c/w home medications -Renal us: Unremarkable transplanted kidney Anemia -Likely anemia of chronic disease -H&H: 10.4/32.8 -on ferrous sulfate daily -On weekly epoetin lela 4000 units/ml SC at home Hyperlipidemia: -ASCVD risk 19.3% -Start Atorvastatin 40 mg po daily Right heel ulcer -chronic -No signs of infection -monitor Diet -Consistent carbohydrate renal diet DVT prophylaxis -SCD'S -Lovenox 40 mg SC daily
[2017-11-25] MEDS: Enoxaparin 40 mg Syringe SC SCH (08:27)
[2017-11-25] MEDS: Cilostazol 50 mg Tab UD PO SCH (08:28)
[2017-11-25] MEDS: Pantoprazole 20 mg EC Tab PO SCH (08:30)
[2017-11-25] MEDS: Insulin Detemir 100 Units/ml Inj SC SCH ×2 (08:30→21:59)
--- NOTE | 2017-11-25 12:54 | CP.PCM.PN ---
Subjective - Date & Time of Evaluation Date of Evaluation: 11/25/17 Time of Evaluation: 09:00 - Subjective Subjective: + ESBL Klebs transplant pyelo cont IV rx Objective - Vital Signs/Intake and Output Vital Signs (last 24 hours): Temp Pulse Resp BP Pulse Ox 97.9 F 87 18 122/66 97 11/25/17 08:04 11/25/17 10:22 11/25/17 08:04 11/25/17 08:04 11/25/17 10:22 - Medications Medications: Current Medications Acetaminophen (Tylenol 325mg Tab) 650 mg PO Q6 PRN PRN Reason: Fever >100.4 F Last Admin: 11/23/17 08:40 Dose: 650 mg Atorvastatin Calcium (Lipitor) 40 mg PO DAILY [facility] Bisoprolol Fumarate (Zebeta) 2.5 mg PO DAILY [facility] Last Admin: 11/25/17 08:29 Dose: 2.5 mg Cilostazol (Pletal) 50 mg PO DAILY [facility] Last Admin: 11/25/17 08:28 Dose: 50 mg Enoxaparin Sodium (Lovenox) 40 mg SC DAILY [facility] PRN Reason: Protocol Last Admin: 11/25/17 08:27 Dose: 40 mg Hydrochlorothiazide (Hydrodiuril) 25 mg PO DAILY [facility] Last Admin: 11/25/17 08:32 Dose: 25 mg Meropenem 500 mg/ Sodium (Chloride) 100 mls @ 100 mls/hr IVPB Q8 [facility] PRN Reason: Protocol Stop: 12/08/17 10:46 Last Admin: 11/25/17 08:27 Dose: 100 mls/hr Insulin Detemir (Levemir) 20 units SC Q12 [facility] Last Admin: 11/25/17 08:30 Dose: 20 unit Insulin Human Regular (Humulin R) 0 units SC ACCU-CHECK [facility] PRN Reason: Protocol Last Admin: 11/25/17 10:59 Dose: 2 units Metformin HCl (Glucophage) 500 mg PO BRK [facility] Last Admin: 11/25/17 08:30 Dose: 500 mg Mycophenolate Mofetil (Cellcept) 500 mg PO QPM [facility] Last Admin: 11/24/17 17:02 Dose: 500 mg Mycophenolate Mofetil (Cellcept Cap) 750 mg PO QAM [facility] Last Admin: 11/25/17 10:58 Dose: 750 mg Pantoprazole Sodium (Protonix Ec Tab) 20 mg PO DAILY [facility] Last Admin: 11/25/17 08:30 Dose: 20 mg Prednisone (Prednisone Tab) 2.5 mg PO DAILY [facility] Last Admin: 11/25/17 08:27 Dose: 2.5 mg Tacrolimus (Prograf Cap) 2 mg PO Q12 [facility] Last Admin: 11/25/17 08:28 Dose: 2 mg - Labs Labs: 11/25/17 05:55 11/25/17 05:55 - Constitutional Appears: Non-toxic, Chronically Ill - Head Exam Head Exam: NORMOCEPHALIC - Eye Exam Eye Exam: PERRL - ENT Exam ENT Exam: Mucous Membranes Dry - Neck Exam Neck Exam: absent: Lymphadenopathy - Respiratory Exam Respiratory Exam: Decreased Breath Sounds - Cardiovascular Exam Cardiovascular Exam: REGULAR RHYTHM - GI/Abdominal Exam GI & Abdominal Exam: Distended - Rectal Exam Rectal Exam: Deferred - Exam Exam: NORMAL INSPECTION - Extremities Exam Extremities Exam: absent: Pedal Edema - Back Exam Back Exam: absent: CVA tenderness (L), CVA tenderness (R) - Neurological Exam Neurological Exam: Alert, Awake, Oriented x3 - Psychiatric Exam Psychiatric exam: Normal Mood Assessment and Plan (1) UTI (urinary tract infection) Status: Acute (2) UTI (urinary tract infection) Status: Acute (3) Renal transplant recipient Status: Acute (4) Renal transplant recipient Status: Acute (5) Diabetes Status: Acute (6) HTN (hypertension) Status: Acute - Assessment and Plan (Free Text) Assessment: cont IV rx for 14 days
--- NOTE | 2017-11-25 13:53 | CP.PCM.PN ---
Subjective - Date & Time of Evaluation Date of Evaluation: 11/25/17 Time of Evaluation: 01:30 - Subjective Subjective: Pt feels better Denies urinary symptoms Objective - Vital Signs/Intake and Output Vital Signs (last 24 hours): Temp Pulse Resp BP Pulse Ox 97.9 F 87 18 122/66 97 11/25/17 08:04 11/25/17 10:22 11/25/17 08:04 11/25/17 08:04 11/25/17 10:22 Intake and Output: 11/25/17 11/25/17 06:59 18:59 Output Total 120 Balance -120 - Medications Medications: Current Medications Acetaminophen (Tylenol 325mg Tab) 650 mg PO Q6 PRN PRN Reason: Fever >100.4 F Last Admin: 11/23/17 08:40 Dose: 650 mg Atorvastatin Calcium (Lipitor) 40 mg PO DAILY [facility] Bisoprolol Fumarate (Zebeta) 2.5 mg PO DAILY [facility] Last Admin: 11/25/17 08:29 Dose: 2.5 mg Cilostazol (Pletal) 50 mg PO DAILY [facility] Last Admin: 11/25/17 08:28 Dose: 50 mg Enoxaparin Sodium (Lovenox) 40 mg SC DAILY [facility] PRN Reason: Protocol Last Admin: 11/25/17 08:27 Dose: 40 mg Hydrochlorothiazide (Hydrodiuril) 25 mg PO DAILY [facility] Last Admin: 11/25/17 08:32 Dose: 25 mg Meropenem 500 mg/ Sodium (Chloride) 100 mls @ 100 mls/hr IVPB Q8 [facility] PRN Reason: Protocol Stop: 12/08/17 10:46 Last Admin: 11/25/17 08:27 Dose: 100 mls/hr Insulin Detemir (Levemir) 20 units SC Q12 [facility] Last Admin: 11/25/17 08:30 Dose: 20 unit Insulin Human Regular (Humulin R) 0 units SC ACCU-CHECK [facility] PRN Reason: Protocol Last Admin: 11/25/17 10:59 Dose: 2 units Metformin HCl (Glucophage) 500 mg PO BRK [facility] Last Admin: 11/25/17 08:30 Dose: 500 mg Mycophenolate Mofetil (Cellcept) 500 mg PO QPM [facility] Last Admin: 11/24/17 17:02 Dose: 500 mg Mycophenolate Mofetil (Cellcept Cap) 750 mg PO QAM [facility] Last Admin: 11/25/17 10:58 Dose: 750 mg Pantoprazole Sodium (Protonix Ec Tab) 20 mg PO DAILY [facility] Last Admin: 11/25/17 08:30 Dose: 20 mg Prednisone (Prednisone Tab) 2.5 mg PO DAILY [facility] Last Admin: 11/25/17 08:27 Dose: 2.5 mg Tacrolimus (Prograf Cap) 2 mg PO Q12 [facility] Last Admin: 11/25/17 08:28 Dose: 2 mg - Labs Labs: 11/25/17 05:55 11/25/17 05:55 - Eye Exam Eye Exam: Normal appearance - ENT Exam ENT Exam: Mucous Membranes Moist - Neck Exam Neck Exam: Full ROM - Respiratory Exam Respiratory Exam: NORMAL BREATHING PATTERN Additional comments: Lungs ckear - Cardiovascular Exam Cardiovascular Exam: REGULAR RHYTHM Additional comments: No murmur or gallop - GI/Abdominal Exam GI & Abdominal Exam: Soft Additional comments: No CVA tenderness - Extremities Exam Additional comments: Trace Rt foot edema Assessment and Plan - Assessment and Plan (Free Text) Assessment: Klebsiella UTI Leukocytosis is resolved S/P kidney transplant (diabetic nephropathy) DM11,HTN Plan: Antibiotics per ID Continue current transplant meds Tacrolimus level is pending
--- NOTE | 2017-11-25 21:42 | CP.PCM.CON ---
History of Present Illness - History of Present Illness History of Present Illness: 57 year old male with a history of DM, HTN, renal transplant presenting with fever, being treated for recurrent UTI, with anemia and elevated ferritin. The patient reports to recently being treated for UTI in the [place]. He is unaware of having blood problems in the fast. He denies abnormal bleeding and bruising. Past medical history: DM, HTN, renal trasplant Past surgical history: Renal transplant Family history: Denies hematologic and oncologic problems Social history: Denies tobacco, alcohol, and illicit drug use Allergies: IV iron causes hypotension. Review of systems: All remaining review of systems including HEENT, cardiovascular, respiratory, gastrointestinal, genitourinary, musculoskeletal, dermatologic, neurologic, and psychiatric are negative unless mentioned in the HPI. Past Patient History - Past Medical History & Family History Past Medical History?: Yes - Past Social History Smoking Status: Never Smoked - CARDIAC Hx Hypertension: Yes - PULMONARY Hx Respiratory Disorders: No - NEUROLOGICAL Hx Neurological Disorder: No - HEENT Hx HEENT Problems: No - RENAL Hx Chronic Kidney Disease: Yes - ENDOCRINE/METABOLIC Hx Endocrine Disorders: Yes Hx Diabetes Insipidus: Yes - HEMATOLOGICAL/ONCOLOGICAL Hx Blood Disorders: No - INTEGUMENTARY Hx Dermatological Problems: No - MUSCULOSKELETAL/RHEUMATOLOGICAL Hx Musculoskeletal Disorders: No Hx Falls: No - GASTROINTESTINAL Hx Gastrointestinal Disorders: No - GENITOURINARY/GYNECOLOGICAL Hx Genitourinary Disorders: No - PSYCHIATRIC Hx Psychophysiologic Disorder: No Hx Substance Use: No - SURGICAL HISTORY Hx Kidney Transplant: Yes (2015) Hx Vascular Access Device: Yes - ANESTHESIA Hx Anesthesia: Yes Hx Anesthesia Reactions: No Meds Allergies/Adverse Reactions: Allergies Allergy/AdvReac Type Severity Reaction Status Date / Time iron AdvReac blood Verified 11/22/17 16:02 pressure drops - Medications Medications: Current Medications Acetaminophen (Tylenol 325mg Tab) 650 mg PO Q6 PRN PRN Reason: Fever >100.4 F Last Admin: 11/23/17 08:40 Dose: 650 mg Atorvastatin Calcium (Lipitor) 40 mg PO DAILY [facility] Last Admin: 11/25/17 16:02 Dose: 40 mg Bisoprolol Fumarate (Zebeta) 2.5 mg PO DAILY [facility] Last Admin: 11/25/17 08:29 Dose: 2.5 mg Cilostazol (Pletal) 50 mg PO DAILY [facility] Last Admin: 11/25/17 08:28 Dose: 50 mg Enoxaparin Sodium (Lovenox) 40 mg SC DAILY [facility] PRN Reason: Protocol Last Admin: 11/25/17 08:27 Dose: 40 mg Hydrochlorothiazide (Hydrodiuril) 25 mg PO DAILY [facility] Last Admin: 11/25/17 08:32 Dose: 25 mg Meropenem 500 mg/ Sodium (Chloride) 100 mls @ 100 mls/hr IVPB Q8 [facility] PRN Reason: Protocol Stop: 12/08/17 10:46 Last Admin: 11/25/17 16:02 Dose: 100 mls/hr Insulin Detemir (Levemir) 20 units SC Q12 [facility] Last Admin: 11/25/17 08:30 Dose: 20 unit Insulin Human Regular (Humulin R) 0 units SC ACCU-CHECK [facility] PRN Reason: Protocol Last Admin: 11/25/17 16:03 Dose: 3 units Metformin HCl (Glucophage) 500 mg PO BRK [facility] Last Admin: 11/25/17 08:30 Dose: 500 mg Mycophenolate Mofetil (Cellcept) 500 mg PO QPM [facility] Last Admin: 11/25/17 17:03 Dose: 500 mg Mycophenolate Mofetil (Cellcept Cap) 750 mg PO QAM [facility] Last Admin: 11/25/17 10:58 Dose: 750 mg Pantoprazole Sodium (Protonix Ec Tab) 20 mg PO DAILY [facility] Last Admin: 11/25/17 08:30 Dose: 20 mg Prednisone (Prednisone Tab) 2.5 mg PO DAILY [facility] Last Admin: 11/25/17 08:27 Dose: 2.5 mg Tacrolimus (Prograf Cap) 2 mg PO Q12 [facility] Last Admin: 11/25/17 08:28 Dose: 2 mg Physical Exam - Head Exam Head Exam: ATRAUMATIC - Eye Exam Eye Exam: Normal appearance - ENT Exam ENT Exam: Mucous Membranes Dry - Respiratory Exam Respiratory Exam: NORMAL BREATHING PATTERN - Cardiovascular Exam Cardiovascular Exam: +S1, +S2 - GI/Abdominal Exam GI & Abdominal Exam: Normal Bowel Sounds Results - Vital Signs Recent Vital Signs: Last Vital Signs Temp 97.9 F 11/25/17 16:35 Pulse 66 11/25/17 16:35 Resp 20 11/25/17 16:35 BP 148/78 11/25/17 16:35 Pulse Ox 95 11/25/17 16:35 - Labs Result Diagrams: 11/25/17 05:55 11/25/17 05:55 Labs: Laboratory Results - last 24 hr 11/24/17 11/24/17 11/24/17 06:05 13:41 21:30 WBC RBC Hgb Hct MCV MCH MCHC RDW Plt Count Sodium Potassium Chloride Carbon Dioxide Anion Gap BUN Creatinine Est GFR ( Amer) Est GFR (Non-Af Amer) POC Glucose (mg/dL) 149 H Random Glucose Calcium PTH Intact Whole Molec 45 Tacrolimus (LC/MS/MS) 16.0 IgA 11/25/17 11/25/17 11/25/17 05:09 05:55 05:55 WBC 7.2 RBC 3.87 L Hgb 10.6 L Hct 32.6 L MCV 84.2 MCH 27.3 MCHC 32.4 L RDW 14.3 Plt Count 182 Sodium Potassium Chloride Carbon Dioxide Anion Gap BUN Creatinine Est GFR ( Amer) Est GFR (Non-Af Amer) POC Glucose (mg/dL) 152 H Random Glucose Calcium PTH Intact Whole Molec Tacrolimus (LC/MS/MS) IgA 347.5 11/25/17 11/25/17 11/25/17 05:55 10:56 15:29 WBC RBC Hgb Hct MCV MCH MCHC RDW Plt Count Sodium 142 Potassium 4.5 Chloride 106 Carbon Dioxide 23 Anion Gap 18 BUN 24 H Creatinine 1.2 Est GFR ( Amer) > 60 Est GFR (Non-Af Amer) > 60 POC Glucose (mg/dL) 188 H 238 H Random Glucose 137 H Calcium 10.2 PTH Intact Whole Molec Tacrolimus (LC/MS/MS) IgA Assessment & Plan (1) Anemia Assessment and Plan: check retic count, b12, folate, FOBT anemia of chronic disease from infection Status: Acute (2) Elevated ferritin Assessment and Plan: acute phase reactant from infection repeat once clear of infection as outpatient Thank you for this interesting consult. Status: Acute
[2017-11-26] MEDS: Meropenem 500 MG in Sodium Chloride 0.9% 100 ML IVPB SCH ×3 (01:34→17:10)
[2017-11-26] MEDS: Enoxaparin 40 mg Syringe SC SCH (08:26)
[2017-11-26] MEDS: Cilostazol 50 mg Tab UD PO SCH (08:27)
[2017-11-26] MEDS: Insulin Regular 100 units/ml SC SCH ×4 (08:27→22:14)
[2017-11-26] MEDS: Pantoprazole 20 mg EC Tab PO SCH (08:28)
[2017-11-26] MEDS: Insulin Detemir 100 Units/ml Inj SC SCH ×2 (08:29→22:13)
--- NOTE | 2017-11-26 11:06 | CP.PCM.PN ---
Subjective - Date & Time of Evaluation Date of Evaluation: 11/26/17 Time of Evaluation: 10:45 - Subjective Subjective: Feels better. No urinary symptoms Objective - Vital Signs/Intake and Output Vital Signs (last 24 hours): Temp Pulse Resp BP Pulse Ox 98.5 F 64 19 124/75 98 11/26/17 07:46 11/26/17 07:46 11/26/17 07:46 11/26/17 07:46 11/26/17 07:46 - Medications Medications: Current Medications Acetaminophen (Tylenol 325mg Tab) 650 mg PO Q6 PRN PRN Reason: Fever >100.4 F Last Admin: 11/23/17 08:40 Dose: 650 mg Atorvastatin Calcium (Lipitor) 40 mg PO DAILY [facility] Last Admin: 11/26/17 08:29 Dose: 40 mg Bisoprolol Fumarate (Zebeta) 2.5 mg PO DAILY [facility] Last Admin: 11/26/17 08:28 Dose: 2.5 mg Cilostazol (Pletal) 50 mg PO DAILY [facility] Last Admin: 11/26/17 08:27 Dose: 50 mg Enoxaparin Sodium (Lovenox) 40 mg SC DAILY [facility] PRN Reason: Protocol Last Admin: 11/26/17 08:26 Dose: 40 mg Hydrochlorothiazide (Hydrodiuril) 25 mg PO DAILY [facility] Last Admin: 11/26/17 09:31 Dose: 25 mg Meropenem 500 mg/ Sodium (Chloride) 100 mls @ 100 mls/hr IVPB Q8 [facility] PRN Reason: Protocol Stop: 12/08/17 10:46 Last Admin: 11/26/17 08:26 Dose: 100 mls/hr Insulin Detemir (Levemir) 20 units SC Q12 [facility] Last Admin: 11/26/17 08:29 Dose: 20 unit Insulin Human Regular (Humulin R) 0 units SC ACCU-CHECK [facility] PRN Reason: Protocol Last Admin: 11/26/17 08:27 Dose: 3 units Metformin HCl (Glucophage) 500 mg PO BRK [facility] Last Admin: 11/26/17 08:27 Dose: 500 mg Mycophenolate Mofetil (Cellcept) 500 mg PO QPM [facility] Last Admin: 11/25/17 17:03 Dose: 500 mg Mycophenolate Mofetil (Cellcept Cap) 750 mg PO QAM [facility] Last Admin: 11/26/17 08:27 Dose: 750 mg Pantoprazole Sodium (Protonix Ec Tab) 20 mg PO DAILY [facility] Last Admin: 11/26/17 08:28 Dose: 20 mg Prednisone (Prednisone Tab) 2.5 mg PO DAILY [facility] Last Admin: 11/26/17 08:30 Dose: 2.5 mg Tacrolimus (Prograf Cap) 2 mg PO Q12 [facility] Last Admin: 11/26/17 08:26 Dose: 2 mg - Labs Labs: 11/25/17 05:55 11/25/17 05:55 - Constitutional Appears: Non-toxic - Eye Exam Eye Exam: Normal appearance Additional comments: No icterus - Neck Exam Neck Exam: Normal Inspection - Respiratory Exam Respiratory Exam: NORMAL BREATHING PATTERN Additional comments: Lungs clear. Good air entry B/L - Cardiovascular Exam Cardiovascular Exam: REGULAR RHYTHM, +S1, +S2 Additional comments: No gallops - GI/Abdominal Exam GI & Abdominal Exam: Soft Additional comments: No CVA tenderness - Extremities Exam Additional comments: No edema Assessment and Plan - Assessment and Plan (Free Text) Assessment: UTI with multidrug resistant Klebsiella Followed by ID S/P kidney Tx. Renal function remains stable HTN Plan: Continue to monitor renal function. [employer] out put is good Antibiotics per ID
--- NOTE | 2017-11-26 13:07 | CP.PCM.PN ---
Subjective - Date & Time of Evaluation Date of Evaluation: 11/26/17 Time of Evaluation: 08:05 - Subjective Subjective: Patient seen and examined at bedside. No acute overnight events. Afebrile. Patient is tolerating PO. Has regular BM and voiding regularly. Denies any fever , chills, dysuria, hematuria, nausea, vomiting, flank pain or abdominal pain. No other complaints at this time. No side effects of medication reported. Objective - Vital Signs/Intake and Output Vital Signs (last 24 hours): Temp Pulse Resp BP Pulse Ox 98.5 F 64 19 124/75 98 11/26/17 07:46 11/26/17 07:46 11/26/17 07:46 11/26/17 07:46 11/26/17 07:46 - Medications Medications: Current Medications Acetaminophen (Tylenol 325mg Tab) 650 mg PO Q6 PRN PRN Reason: Fever >100.4 F Last Admin: 11/23/17 08:40 Dose: 650 mg Atorvastatin Calcium (Lipitor) 40 mg PO DAILY [facility] Last Admin: 11/26/17 08:29 Dose: 40 mg Bisoprolol Fumarate (Zebeta) 2.5 mg PO DAILY [facility] Last Admin: 11/26/17 08:28 Dose: 2.5 mg Cilostazol (Pletal) 50 mg PO DAILY [facility] Last Admin: 11/26/17 08:27 Dose: 50 mg Enoxaparin Sodium (Lovenox) 40 mg SC DAILY [facility] PRN Reason: Protocol Last Admin: 11/26/17 08:26 Dose: 40 mg Hydrochlorothiazide (Hydrodiuril) 25 mg PO DAILY [facility] Last Admin: 11/26/17 09:31 Dose: 25 mg Meropenem 500 mg/ Sodium (Chloride) 100 mls @ 100 mls/hr IVPB Q8 [facility] PRN Reason: Protocol Stop: 12/08/17 10:46 Last Admin: 11/26/17 08:26 Dose: 100 mls/hr Insulin Detemir (Levemir) 20 units SC Q12 [facility] Last Admin: 11/26/17 08:29 Dose: 20 unit Insulin Human Regular (Humulin R) 0 units SC ACCU-CHECK [facility] PRN Reason: Protocol Last Admin: 11/26/17 11:17 Dose: 3 units Metformin HCl (Glucophage) 500 mg PO BRK [facility] Last Admin: 11/26/17 08:27 Dose: 500 mg Mycophenolate Mofetil (Cellcept) 500 mg PO QPM [facility] Last Admin: 11/25/17 17:03 Dose: 500 mg Mycophenolate Mofetil (Cellcept Cap) 750 mg PO QAM [facility] Last Admin: 11/26/17 08:27 Dose: 750 mg Pantoprazole Sodium (Protonix Ec Tab) 20 mg PO DAILY [facility] Last Admin: 11/26/17 08:28 Dose: 20 mg Prednisone (Prednisone Tab) 2.5 mg PO DAILY [facility] Last Admin: 11/26/17 08:30 Dose: 2.5 mg Tacrolimus (Prograf Cap) 2 mg PO Q12 [facility] Last Admin: 11/26/17 08:26 Dose: 2 mg - Labs Labs: 11/25/17 05:55 11/25/17 05:55 - Constitutional Appears: Well, Non-toxic, No Acute Distress - Head Exam Head Exam: ATRAUMATIC, NORMAL INSPECTION, NORMOCEPHALIC - Eye Exam Eye Exam: Normal appearance - Neck Exam Neck Exam: Normal Inspection - Respiratory Exam Respiratory Exam: Clear to Ausculation Bilateral, NORMAL BREATHING PATTERN. absent: Rales, Rhonchi, Wheezes - Cardiovascular Exam Cardiovascular Exam: REGULAR RHYTHM, +S1, +S2. absent: Murmur - GI/Abdominal Exam GI & Abdominal Exam: Soft, Normal Bowel Sounds. absent: Tenderness Additional comments: Transplanted kidney in the right lower abdomen, non-tender. scar noted. - Extremities Exam Extremities Exam: absent: Calf Tenderness, Pedal Edema, Tenderness Additional comments: right foot mild edema noted, neurovascular intact - Back Exam Back Exam: NORMAL INSPECTION - Neurological Exam Neurological Exam: Alert, Awake, Oriented x3 - Psychiatric Exam Psychiatric exam: Normal Affect, Normal Mood - Skin Skin Exam: Dry, Intact, Normal Color, Warm Assessment and Plan - Assessment and Plan (Free Text) Assessment: 57 year old male with PMH of HTN, IDDMII, GERD and right renal transplant in [place] on 01/18/16 admitted for urosepsis and hyperglycemia. Urosepsis -Urine cx on 11/22/17: Klebsiella pneumoniae ssp, resistant to Zosyn, and sensitive to meropenem -Immunocompromised s/p right renal transplant -Leukocytosis resolved, afebrile, asymptomatic -c/w meropenem 500mg IVP Q8 (day 3 of 14), will speak to ID regarding ertapenem -ID and nephrology on board -blood cx: NGTD -Renal US on 11/23/17: Unremarkable transplanted kidney Elevated Ferritin level: -Last blood transfusion 2 yrs ago -Ferritin level 2270 on 11/23/17 -F/U hematology recommendation IDDMII -A1C: 9.0, Improving glycemia with new regime -Continue levemir 20 units q12 -Continue metformin 500 mg po qam (new med this admission) -MDSS scale with hypoglycemic protocol -Consistent carbohydrate renal diet -Accuchecks ACHS Hypertension -Controlled -Asymptomatic -continue home medication of HCTZ 25 mg po daily Right renal transplant -c/w home medications -Renal us: Unremarkable transplanted kidney Anemia -Likely anemia of chronic disease -H&H: 10.4/32.8 -on ferrous sulfate daily -On weekly epoetin lela 4000 units/ml SC at home -f/u heme/nephro recommendations Hyperlipidemia: -ASCVD risk 19.3% -c/w Atorvastatin 40 mg po daily DVT prophylaxis -SCD'S -Lovenox 40 mg SC daily
[2017-11-27] MEDS: Meropenem 500 MG in Sodium Chloride 0.9% 100 ML IVPB SCH ×3 (00:50→16:45)
[2017-11-27 07:16] LABS: HEMOGLOBIN 10.6 g/dL (12.0-18.0); MEAN CELL VOLUME 84.9 fl (80.0-94.0); MEAN CORPUSCULAR HGB CONC 31.8 g/dL (33.0-37.0); RBC 3.93 Mil/uL (4.40-5.90); RED CELL DISTRIBUTION WIDTH 14.5 % (11.5-14.5); WHITE BLOOD COUNT 7.6 K/uL (4.8-10.8)
--- NOTE | 2017-11-27 08:15 | CP.PCM.PN ---
Subjective - Date & Time of Evaluation Date of Evaluation: 11/27/17 Time of Evaluation: 08:30 - Subjective Subjective: Patient seen and examined at bedside this morning. No acute overnight events. Has been afebrile. Patient is tolerating PO. Has regular BM and voiding regularly. Denies any fever, chills, dysuria, hematuria, nausea, vomiting, flank pain or abdominal pain. No other complaints at this time. Objective - Vital Signs/Intake and Output Vital Signs (last 24 hours): Temp Pulse Resp BP Pulse Ox 97.7 F 79 19 150/74 95 11/27/17 00:47 11/27/17 00:47 11/27/17 00:47 11/27/17 00:47 11/27/17 00:47 - Medications Medications: Current Medications Acetaminophen (Tylenol 325mg Tab) 650 mg PO Q6 PRN PRN Reason: Fever >100.4 F Last Admin: 11/23/17 08:40 Dose: 650 mg Atorvastatin Calcium (Lipitor) 40 mg PO DAILY [facility] Last Admin: 11/26/17 08:29 Dose: 40 mg Bisoprolol Fumarate (Zebeta) 2.5 mg PO DAILY [facility] Last Admin: 11/26/17 08:28 Dose: 2.5 mg Cilostazol (Pletal) 50 mg PO DAILY [facility] Last Admin: 11/26/17 08:27 Dose: 50 mg Enoxaparin Sodium (Lovenox) 40 mg SC DAILY [facility] PRN Reason: Protocol Last Admin: 11/26/17 08:26 Dose: 40 mg Hydrochlorothiazide (Hydrodiuril) 25 mg PO DAILY [facility] Last Admin: 11/26/17 09:31 Dose: 25 mg Meropenem 500 mg/ Sodium (Chloride) 100 mls @ 100 mls/hr IVPB Q8 [facility] PRN Reason: Protocol Stop: 12/08/17 10:46 Last Admin: 11/27/17 00:50 Dose: 100 mls/hr Insulin Detemir (Levemir) 20 units SC Q12 [facility] Last Admin: 11/26/17 22:13 Dose: 20 unit Insulin Human Regular (Humulin R) 0 units SC ACCU-CHECK [facility] PRN Reason: Protocol Last Admin: 11/26/17 22:14 Dose: Not Given Metformin HCl (Glucophage) 500 mg PO BRK [facility] Last Admin: 11/26/17 08:27 Dose: 500 mg Mycophenolate Mofetil (Cellcept) 500 mg PO QPM [facility] Last Admin: 11/26/17 17:10 Dose: 500 mg Mycophenolate Mofetil (Cellcept Cap) 750 mg PO QAM [facility] Last Admin: 11/26/17 08:27 Dose: 750 mg Pantoprazole Sodium (Protonix Ec Tab) 20 mg PO DAILY [facility] Last Admin: 11/26/17 08:28 Dose: 20 mg Prednisone (Prednisone Tab) 2.5 mg PO DAILY [facility] Last Admin: 11/26/17 08:30 Dose: 2.5 mg Tacrolimus (Prograf Cap) 2 mg PO Q12 [facility] Last Admin: 11/26/17 21:36 Dose: 2 mg - Labs Labs: 11/27/17 05:30 11/25/17 05:55 - Constitutional Appears: Non-toxic, No Acute Distress - Head Exam Head Exam: NORMAL INSPECTION - Eye Exam Eye Exam: EOMI, Normal appearance - ENT Exam ENT Exam: Mucous Membranes Moist, Normal Oropharynx - Neck Exam Neck Exam: Normal Inspection - Respiratory Exam Respiratory Exam: Clear to Ausculation Bilateral, NORMAL BREATHING PATTERN. absent: Rales, Rhonchi, Wheezes - Cardiovascular Exam Cardiovascular Exam: REGULAR RHYTHM, RRR, +S1, +S2 - GI/Abdominal Exam GI & Abdominal Exam: Soft, Normal Bowel Sounds. absent: Tenderness Additional comments: Transplanted kidney in the right lower abdomen, non-tender. Healed scar in mid abdomen. - Extremities Exam Extremities Exam: Normal Capillary Refill. absent: Calf Tenderness Additional comments: Mild edema of right lateral ankle and foot. Has healing ulcer on right lateral heel. No odor, discharge or erythema seen. Neurovascular intact - Back Exam Back Exam: absent: CVA tenderness (L), CVA tenderness (R) - Neurological Exam Neurological Exam: Alert, Awake, Oriented x3 - Psychiatric Exam Psychiatric exam: Normal Affect, Normal Mood Assessment and Plan - Assessment and Plan (Free Text) Assessment: 57 year old male with PMH of HTN, IDDMII, GERD and right renal transplant in [place] on 01/18/16 admitted for urosepsis and hyperglycemia. Urosepsis -Urine cx on 11/22/17: Klebsiella pneumoniae ssp, resistant to Zosyn, and sensitive to meropenem -Immunocompromised s/p right renal transplant -Leukocytosis resolved, afebrile, asymptomatic -c/w meropenem 500mg IVP Q8 (day 4 of 14) -ID and nephrology on board -blood cx: No growth after 4 days -Renal US on 11/23/17: Unremarkable transplanted kidney IDDMII -A1C: 9.0, Improving glycemia with new regime -Continue levemir 20 units q12 -Start metformin 500 mg po BID (new med this admission) -MDSS scale with hypoglycemic protocol -Consistent carbohydrate renal diet -Accuchecks ACHS Elevated Ferritin level -Last blood transfusion 2 yrs ago -Ferritin level 2270 on 11/23/17 -Hematology recommendation appreciated: Ferritin elevation likely due to infection. f/u ferritin outpatient. Hypertension -Controlled -Asymptomatic -continue home medication of HCTZ 25 mg po daily Right renal transplant -c/w home medications -Renal us: Unremarkable transplanted kidney Anemia -Likely anemia of chronic disease -H&H: 10.4/32.8 -Retic count: 2.0; vitamin B12: 372. -on ferrous sulfate daily -On weekly epoetin lela 4000 units/ml SC at home -C/w procrit 4000 units/ml SC qweekly -Heme/nephro on board -f/u folate and FOBT Hyperlipidemia: -ASCVD risk 19.3% -c/w Atorvastatin 40 mg po daily DVT prophylaxis -SCD'S -Lovenox 40 mg SC daily Code Status -Full code
[2017-11-27] MEDS: Pantoprazole 20 mg EC Tab PO SCH (08:56)
[2017-11-27] MEDS: Enoxaparin 40 mg Syringe SC SCH (08:57)
[2017-11-27] MEDS: Insulin Regular 100 units/ml SC SCH ×4 (08:58→22:09)
[2017-11-27] MEDS: Cilostazol 50 mg Tab UD PO SCH (08:58)
[2017-11-27] MEDS: Insulin Detemir 100 Units/ml Inj SC SCH ×2 (09:00→21:56)
[2017-11-27] MEDS ORDERED: Epoetin Alfa 4000 UNIT/ML Inj SC SCH (12:10)
--- NOTE | 2017-11-27 12:30 | CP.PCM.PN ---
Subjective - Date & Time of Evaluation Date of Evaluation: 11/27/17 Time of Evaluation: 12:30 - Subjective Subjective: Appears comfortable. Denies any urinary symptoms or abdominal pain Objective - Vital Signs/Intake and Output Vital Signs (last 24 hours): Temp Pulse Resp BP Pulse Ox 97.7 F 79 19 150/74 95 11/27/17 00:47 11/27/17 00:47 11/27/17 00:47 11/27/17 00:47 11/27/17 00:47 - Medications Medications: Current Medications Acetaminophen (Tylenol 325mg Tab) 650 mg PO Q6 PRN PRN Reason: Fever >100.4 F Last Admin: 11/23/17 08:40 Dose: 650 mg Atorvastatin Calcium (Lipitor) 40 mg PO DAILY [facility] Last Admin: 11/27/17 08:56 Dose: 40 mg Bisoprolol Fumarate (Zebeta) 2.5 mg PO DAILY [facility] Last Admin: 11/27/17 08:56 Dose: 2.5 mg Cilostazol (Pletal) 50 mg PO DAILY [facility] Last Admin: 11/27/17 08:58 Dose: 50 mg Enoxaparin Sodium (Lovenox) 40 mg SC DAILY [facility] PRN Reason: Protocol Last Admin: 11/27/17 08:57 Dose: 40 mg Epoetin Jamaal (Procrit) 4,000 unit SC QWK [facility] Hydrochlorothiazide (Hydrodiuril) 25 mg PO DAILY [facility] Last Admin: 11/27/17 09:05 Dose: 25 mg Meropenem 500 mg/ Sodium (Chloride) 100 mls @ 100 mls/hr IVPB Q8 [facility] PRN Reason: Protocol Stop: 12/08/17 10:46 Last Admin: 11/27/17 09:00 Dose: 100 mls/hr Insulin Detemir (Levemir) 20 units SC Q12 [facility] Last Admin: 11/27/17 09:00 Dose: 20 unit Insulin Human Regular (Humulin R) 0 units SC ACCU-CHECK [facility] PRN Reason: Protocol Last Admin: 11/27/17 11:42 Dose: 4 units Metformin HCl (Glucophage) 500 mg PO BID [facility] Mycophenolate Mofetil (Cellcept) 500 mg PO QPM [facility] Last Admin: 11/26/17 17:10 Dose: 500 mg Mycophenolate Mofetil (Cellcept Cap) 750 mg PO QAM [facility] Last Admin: 11/27/17 08:58 Dose: 750 mg Pantoprazole Sodium (Protonix Ec Tab) 20 mg PO DAILY [facility] Last Admin: 11/27/17 08:56 Dose: 20 mg Prednisone (Prednisone Tab) 2.5 mg PO DAILY [facility] Last Admin: 11/27/17 08:58 Dose: 2.5 mg Saccharomyces Boulardii (Florastor) 250 mg PO BID [facility] Tacrolimus (Prograf Cap) 2 mg PO Q12 [facility] Last Admin: 11/27/17 08:57 Dose: 2 mg - Labs Labs: 11/27/17 05:30 11/25/17 05:55 - Head Exam Head Exam: ATRAUMATIC, NORMOCEPHALIC - Eye Exam Additional comments: No icterus - ENT Exam ENT Exam: Mucous Membranes Moist - Respiratory Exam Respiratory Exam: NORMAL BREATHING PATTERN Additional comments: Lungs clear - Cardiovascular Exam Cardiovascular Exam: REGULAR RHYTHM Additional comments: No gallops - GI/Abdominal Exam GI & Abdominal Exam: Soft Additional comments: globular no tend - Extremities Exam Additional comments: No edema Assessment and Plan - Assessment and Plan (Free Text) Assessment: Multidrug resistant UTI S/P kidney Tx. Renal function remains stable Tacrolimus level is therapeutic HTN, DM11 Plan: Antibiotics per ID Continue to monitor renal function BP is controlled
--- NOTE | 2017-11-27 14:03 | CP.PCM.PN ---
Subjective - Date & Time of Evaluation Date of Evaluation: 11/27/17 Time of Evaluation: 09:00 - Subjective Subjective: + ESBL Klebs transplant pyelo cont IV rx Objective - Vital Signs/Intake and Output Vital Signs (last 24 hours): Temp Pulse Resp BP Pulse Ox 97.7 F 79 19 150/74 95 11/27/17 00:47 11/27/17 00:47 11/27/17 00:47 11/27/17 00:47 11/27/17 00:47 - Medications Medications: Current Medications Acetaminophen (Tylenol 325mg Tab) 650 mg PO Q6 PRN PRN Reason: Fever >100.4 F Last Admin: 11/23/17 08:40 Dose: 650 mg Atorvastatin Calcium (Lipitor) 40 mg PO DAILY [facility] Last Admin: 11/27/17 08:56 Dose: 40 mg Bisoprolol Fumarate (Zebeta) 2.5 mg PO DAILY [facility] Last Admin: 11/27/17 08:56 Dose: 2.5 mg Cilostazol (Pletal) 50 mg PO DAILY [facility] Last Admin: 11/27/17 08:58 Dose: 50 mg Enoxaparin Sodium (Lovenox) 40 mg SC DAILY [facility] PRN Reason: Protocol Last Admin: 11/27/17 08:57 Dose: 40 mg Epoetin Jamaal (Procrit) 4,000 unit SC QWK [facility] Hydrochlorothiazide (Hydrodiuril) 25 mg PO DAILY [facility] Last Admin: 11/27/17 09:05 Dose: 25 mg Meropenem 500 mg/ Sodium (Chloride) 100 mls @ 100 mls/hr IVPB Q8 [facility] PRN Reason: Protocol Stop: 12/08/17 10:46 Last Admin: 11/27/17 09:00 Dose: 100 mls/hr Insulin Detemir (Levemir) 20 units SC Q12 [facility] Last Admin: 11/27/17 09:00 Dose: 20 unit Insulin Human Regular (Humulin R) 0 units SC ACCU-CHECK [facility] PRN Reason: Protocol Last Admin: 11/27/17 11:42 Dose: 4 units Metformin HCl (Glucophage) 500 mg PO BID [facility] Mycophenolate Mofetil (Cellcept) 500 mg PO QPM [facility] Last Admin: 11/26/17 17:10 Dose: 500 mg Mycophenolate Mofetil (Cellcept Cap) 750 mg PO QAM [facility] Last Admin: 11/27/17 08:58 Dose: 750 mg Pantoprazole Sodium (Protonix Ec Tab) 20 mg PO DAILY [facility] Last Admin: 11/27/17 08:56 Dose: 20 mg Prednisone (Prednisone Tab) 2.5 mg PO DAILY [facility] Last Admin: 11/27/17 08:58 Dose: 2.5 mg Saccharomyces Boulardii (Florastor) 250 mg PO BID [facility] Tacrolimus (Prograf Cap) 2 mg PO Q12 [facility] Last Admin: 11/27/17 08:57 Dose: 2 mg - Labs Labs: 11/27/17 05:30 11/25/17 05:55 - Constitutional Appears: Non-toxic, Chronically Ill - Head Exam Head Exam: NORMOCEPHALIC - Eye Exam Eye Exam: PERRL - ENT Exam ENT Exam: Mucous Membranes Dry - Neck Exam Neck Exam: absent: Lymphadenopathy - Respiratory Exam Respiratory Exam: Decreased Breath Sounds - Cardiovascular Exam Cardiovascular Exam: REGULAR RHYTHM - GI/Abdominal Exam GI & Abdominal Exam: Distended, Soft - Rectal Exam Rectal Exam: Deferred - Exam Exam: NORMAL INSPECTION - Extremities Exam Extremities Exam: absent: Pedal Edema - Back Exam Back Exam: absent: CVA tenderness (L), CVA tenderness (R) Assessment and Plan (1) UTI (urinary tract infection) Status: Acute (2) UTI (urinary tract infection) Status: Acute (3) Renal transplant recipient Status: Acute (4) Renal transplant recipient Status: Acute (5) Diabetes Status: Acute (6) HTN (hypertension) Status: Acute - Assessment and Plan (Free Text) Assessment: + ESBL Klebs transplant pyelo cont IV rx
[2017-11-27] MEDS: Saccharomyces Boulardi 250 mg Cap PO SCH (16:43)
[2017-11-27 18:20] LABS: FOLATE 16.5 ng/mL
[2017-11-28] MEDS: Meropenem 500 MG in Sodium Chloride 0.9% 100 ML IVPB SCH ×3 (01:05→16:44)
[2017-11-28] MEDS: Insulin Regular 100 units/ml SC SCH ×4 (07:45→22:08)
[2017-11-28] MEDS: Saccharomyces Boulardi 250 mg Cap PO SCH ×2 (09:15→16:45)
[2017-11-28] MEDS: Enoxaparin 40 mg Syringe SC SCH (09:17)
[2017-11-28] MEDS: Cilostazol 50 mg Tab UD PO SCH (09:17)
[2017-11-28] MEDS: Pantoprazole 20 mg EC Tab PO SCH (09:17)
[2017-11-28] MEDS: Insulin Detemir 100 Units/ml Inj SC SCH ×2 (09:18→21:55)
--- NOTE | 2017-11-28 15:34 | CP.PCM.PN ---
Subjective - Date & Time of Evaluation Date of Evaluation: 11/28/17 Time of Evaluation: 09:32 - Subjective Subjective: Patient seen and examined at bedside. No acute overnight events. Has been afebrile. Patient is tolerating PO. Has regular BM and voiding regularly. Denies any fever, chills, dysuria, hematuria, nausea, vomiting, flank pain or abdominal pain. No other complaints at this time. Would like to go home but understands treatment course. Objective - Vital Signs/Intake and Output Vital Signs (last 24 hours): Temp Pulse Resp BP Pulse Ox 98.1 F 88 20 137/79 98 11/28/17 08:40 11/28/17 08:40 11/28/17 08:40 11/28/17 08:40 11/28/17 08:40 - Medications Medications: Current Medications Acetaminophen (Tylenol 325mg Tab) 650 mg PO Q6 PRN PRN Reason: Fever >100.4 F Last Admin: 11/23/17 08:40 Dose: 650 mg Atorvastatin Calcium (Lipitor) 40 mg PO DAILY [facility] Last Admin: 11/28/17 09:17 Dose: 40 mg Bisoprolol Fumarate (Zebeta) 2.5 mg PO DAILY [facility] Last Admin: 11/28/17 09:17 Dose: 2.5 mg Cilostazol (Pletal) 50 mg PO DAILY [facility] Last Admin: 11/28/17 09:17 Dose: 50 mg Enoxaparin Sodium (Lovenox) 40 mg SC DAILY [facility] PRN Reason: Protocol Last Admin: 11/28/17 09:17 Dose: 40 mg Epoetin Jamaal (Procrit) 4,000 unit SC QWK [facility] Hydrochlorothiazide (Hydrodiuril) 25 mg PO DAILY [facility] Last Admin: 11/28/17 09:16 Dose: 25 mg Meropenem 500 mg/ Sodium (Chloride) 100 mls @ 100 mls/hr IVPB Q8 [facility] PRN Reason: Protocol Stop: 12/08/17 10:46 Last Admin: 11/28/17 09:16 Dose: 100 mls/hr Insulin Detemir (Levemir) 20 units SC Q12 [facility] Last Admin: 11/28/17 09:18 Dose: 20 unit Insulin Human Regular (Humulin R) 0 units SC ACCU-CHECK [facility] PRN Reason: Protocol Last Admin: 11/28/17 12:56 Dose: 4 units Metformin HCl (Glucophage) 500 mg PO BID [facility] Last Admin: 11/28/17 09:15 Dose: 500 mg Mycophenolate Mofetil (Cellcept) 500 mg PO QPM [facility] Last Admin: 11/27/17 18:46 Dose: 500 mg Mycophenolate Mofetil (Cellcept Cap) 750 mg PO QAM [facility] Last Admin: 11/28/17 09:15 Dose: 750 mg Pantoprazole Sodium (Protonix Ec Tab) 20 mg PO DAILY [facility] Last Admin: 11/28/17 09:17 Dose: 20 mg Prednisone (Prednisone Tab) 2.5 mg PO DAILY [facility] Last Admin: 11/28/17 09:15 Dose: 2.5 mg Saccharomyces Boulardii (Florastor) 250 mg PO BID [facility] Last Admin: 11/28/17 09:15 Dose: 250 mg Tacrolimus (Prograf Cap) 2 mg PO Q12 [facility] Last Admin: 11/28/17 09:15 Dose: 2 mg - Labs Labs: 11/27/17 05:30 11/25/17 05:55 - Constitutional Appears: Well, Non-toxic, No Acute Distress - Head Exam Head Exam: NORMAL INSPECTION - Eye Exam Eye Exam: Normal appearance - Neck Exam Neck Exam: Normal Inspection - Respiratory Exam Respiratory Exam: Clear to Ausculation Bilateral, NORMAL BREATHING PATTERN. absent: Decreased Breath Sounds, Rales, Rhonchi, Wheezes - Cardiovascular Exam Cardiovascular Exam: REGULAR RHYTHM, +S1, +S2. absent: Murmur - GI/Abdominal Exam GI & Abdominal Exam: Soft, Normal Bowel Sounds. absent: Tenderness Additional comments: Transplanted kidney in the right lower abdomen, non-tender. Healed scar in mid abdomen. - Extremities Exam Extremities Exam: Normal Inspection. absent: Calf Tenderness Additional comments: Mild edema of right lateral ankle and foot. - Back Exam Back Exam: NORMAL INSPECTION - Neurological Exam Neurological Exam: Alert, Awake, Oriented x3 - Psychiatric Exam Psychiatric exam: Normal Affect, Normal Mood - Skin Skin Exam: Dry, Intact, Normal Color, Warm Assessment and Plan - Assessment and Plan (Free Text) Assessment: 57 year old male with PMHx of HTN, IDDMII, GERD and right renal transplant in [place] on 01/18/16 admitted for urosepsis and hyperglycemia. Urosepsis -Urine cx on 11/22/17: Klebsiella pneumoniae ssp, resistant to Zosyn, and sensitive to meropenem/ertapenem -Immunocompromised s/p right renal transplant -Leukocytosis resolved, afebrile, asymptomatic -c/w meropenem 500mg IVP Q8 (day 5 of 14) -ID and nephrology on board -blood cx: No growth after 5 days -Renal US on 11/23/17: Unremarkable transplanted kidney IDDMII -A1C: 9.0, Improving glycemia with new regime -Continue levemir 20 units q12 -c/w metformin 500 mg po BID (new med this admission) -MDSS scale with hypoglycemic protocol -Consistent carbohydrate renal diet -Accuchecks ACHS Elevated Ferritin level -Last blood transfusion 2 yrs ago -Ferritin level 2270 on 11/23/17 -Hematology recommendation appreciated: Ferritin elevation likely due to infection. f/u ferritin outpatient. Hypertension -Controlled, Asymptomatic -continue home meds Right renal transplant -c/w home medications -Renal us: Unremarkable transplanted kidney Anemia -Likely anemia of chronic disease -H&H: 10.4/32.8, Retic count: 2.0; vitamin B12: 372, folate 16.5 -on ferrous sulfate daily -C/w procrit 4000 units/ml SC qweekly (as per home med, okayed by nephro/heme) -Heme/nephro on board -f/u FOBT Hyperlipidemia: -ASCVD risk 19.3% -c/w Atorvastatin 40 mg po daily DVT prophylaxis -SCD'S -Lovenox 40 mg SC daily Code Status -Full code
[2017-11-29] MEDS: Meropenem 500 MG in Sodium Chloride 0.9% 100 ML IVPB SCH ×3 (01:28→17:17)
--- NOTE | 2017-11-29 08:29 | CP.PCM.PN ---
Subjective - Date & Time of Evaluation Date of Evaluation: 11/29/17 Time of Evaluation: 09:45 - Subjective Subjective: Patient seen and examined at bedside. Has been afebrile. Pt reports multiple episodes loose BM since the start of metformin. Denies nausea, vomiting or abdominal pain. Patient is tolerating PO and voiding regularly. Denies any fever , chills, dysuria, hematuria, nausea, vomiting, or flank pain. No other complaints at this time. Pt prefers to go home but understands treatment course. Objective - Vital Signs/Intake and Output Vital Signs (last 24 hours): Temp Pulse Resp BP Pulse Ox 97.9 F 70 20 118/72 97 11/29/17 07:55 11/29/17 07:55 11/29/17 07:55 11/29/17 07:55 11/29/17 07:55 - Medications Medications: Current Medications Acetaminophen (Tylenol 325mg Tab) 650 mg PO Q6 PRN PRN Reason: Fever >100.4 F Last Admin: 11/23/17 08:40 Dose: 650 mg Atorvastatin Calcium (Lipitor) 40 mg PO DAILY [facility] Last Admin: 11/28/17 09:17 Dose: 40 mg Bisoprolol Fumarate (Zebeta) 2.5 mg PO DAILY [facility] Last Admin: 11/28/17 09:17 Dose: 2.5 mg Cilostazol (Pletal) 50 mg PO DAILY [facility] Last Admin: 11/28/17 09:17 Dose: 50 mg Enoxaparin Sodium (Lovenox) 40 mg SC DAILY [facility] PRN Reason: Protocol Last Admin: 11/28/17 09:17 Dose: 40 mg Epoetin Jamaal (Procrit) 4,000 unit SC QWK [facility] Hydrochlorothiazide (Hydrodiuril) 25 mg PO DAILY [facility] Last Admin: 11/28/17 09:16 Dose: 25 mg Meropenem 500 mg/ Sodium (Chloride) 100 mls @ 100 mls/hr IVPB Q8 [facility] PRN Reason: Protocol Stop: 12/08/17 10:46 Last Admin: 11/29/17 01:28 Dose: 100 mls/hr Insulin Detemir (Levemir) 20 units SC Q12 [facility] Last Admin: 11/28/17 21:55 Dose: 20 unit Insulin Human Regular (Humulin R) 0 units SC ACCU-CHECK [facility] PRN Reason: Protocol Last Admin: 11/28/17 22:08 Dose: Not Given Metformin HCl (Glucophage) 500 mg PO BID [facility] Last Admin: 11/28/17 16:45 Dose: 500 mg Mycophenolate Mofetil (Cellcept) 500 mg PO QPM [facility] Last Admin: 11/28/17 17:30 Dose: 500 mg Mycophenolate Mofetil (Cellcept Cap) 750 mg PO QAM [facility] Last Admin: 11/28/17 09:15 Dose: 750 mg Pantoprazole Sodium (Protonix Ec Tab) 20 mg PO DAILY [facility] Last Admin: 11/28/17 09:17 Dose: 20 mg Prednisone (Prednisone Tab) 2.5 mg PO DAILY [facility] Last Admin: 11/28/17 09:15 Dose: 2.5 mg Saccharomyces Boulardii (Florastor) 250 mg PO BID [facility] Last Admin: 11/28/17 16:45 Dose: 250 mg Tacrolimus (Prograf Cap) 2 mg PO Q12 [facility] Last Admin: 11/28/17 22:50 Dose: 2 mg - Labs Labs: 11/27/17 05:30 11/25/17 05:55 - Additional Findings Additional findings: - Constitutional Appears: Well, Non-toxic, No Acute Distress - Head Exam Head Exam: NORMAL INSPECTION - Eye Exam Eye Exam: Normal appearance - Neck Exam Neck Exam: Normal Inspection - Respiratory Exam Respiratory Exam: Clear to Ausculation Bilateral, NORMAL BREATHING PATTERN. absent: Decreased Breath Sounds, Rales, Rhonchi, Wheezes - Cardiovascular Exam Cardiovascular Exam: REGULAR RHYTHM, +S1, +S2. absent: Murmur - GI/Abdominal Exam GI & Abdominal Exam: Soft, Normal Bowel Sounds. absent: Tenderness Additional comments: Transplanted kidney in the right lower abdomen, non-tender. Healed scar in mid abdomen. - Extremities Exam Extremities Exam: Normal Inspection. absent: Calf Tenderness Additional comments: Mild edema of right lateral ankle and foot ( improving). - Back Exam Back Exam: NORMAL INSPECTION - Neurological Exam Neurological Exam: Alert, Awake, Oriented x3 - Psychiatric Exam Psychiatric exam: Normal Affect, Normal Mood - Skin Skin Exam: Dry, Intact, Normal Color, Warm Assessment and Plan - Assessment and Plan (Free Text) Assessment: 57 year old male with PMHx of HTN, IDDMII, GERD and right renal transplant in [facility] [place] on 01/18/16 admitted for urosepsis and hyperglycemia. Urosepsis -Urine cx on 11/22/17: Klebsiella pneumoniae ssp, resistant to Zosyn, and sensitive to meropenem/ertapenem -Repeat urine cx on 11/27/17 is negative -Immunocompromised s/p right renal transplant -Leukocytosis resolved, afebrile, asymptomatic -c/w meropenem 500mg IVP Q8 (day 6 of 14) -ID and nephrology on board -blood cx: No growth after 5 days -Renal US on 11/23/17: Unremarkable transplanted kidney IDDMII -A1C: 9.0, Improving glycemia with new regime -Continue levemir 20 units q12 -Hold metformin 500 mg po BID due to diarrhea -MDSS scale with hypoglycemic protocol -Consistent carbohydrate renal diet -Accuchecks ACHS Elevated Ferritin level -Last blood transfusion 2 yrs ago -Ferritin level 2270 on 11/23/17 -Hematology recommendation appreciated: Ferritin elevation likely due to infection. f/u ferritin outpatient. Hypertension -Controlled, Asymptomatic -continue home meds Right renal transplant -c/w home medications -Renal us: Unremarkable transplanted kidney Anemia -Likely anemia of chronic disease -H&H: 10.4/32.8, Retic count: 2.0; vitamin B12: 372, folate 16.5 -on ferrous sulfate daily -C/w procrit 4000 units/ml SC qweekly (as per home med, okayed by nephro/heme) -Heme/nephro on board -f/u FOBT Hyperlipidemia: -ASCVD risk 19.3% -c/w Atorvastatin 40 mg po daily DVT prophylaxis -SCD'S -Lovenox 40 mg SC daily Code Status -Full code
[2017-11-29] MEDS: Saccharomyces Boulardi 250 mg Cap PO SCH ×2 (09:19→17:15)
[2017-11-29] MEDS: Insulin Regular 100 units/ml SC SCH ×4 (09:20→22:38)
[2017-11-29] MEDS: Enoxaparin 40 mg Syringe SC SCH (09:22)
[2017-11-29] MEDS: Cilostazol 50 mg Tab UD PO SCH (09:23)
[2017-11-29] MEDS: Insulin Detemir 100 Units/ml Inj SC SCH ×2 (09:24→21:32)
[2017-11-29] MEDS: Pantoprazole 20 mg EC Tab PO SCH (09:24)
--- NOTE | 2017-11-29 13:54 | CP.PCM.PN ---
Subjective - Date & Time of Evaluation Date of Evaluation: 11/29/17 Time of Evaluation: 12:30 - Subjective Subjective: Feels better No flank pain or urinary Sm Objective - Vital Signs/Intake and Output Vital Signs (last 24 hours): Temp Pulse Resp BP Pulse Ox 97.9 F 70 20 118/72 97 11/29/17 07:55 11/29/17 07:55 11/29/17 07:55 11/29/17 07:55 11/29/17 07:55 - Medications Medications: Current Medications Acetaminophen (Tylenol 325mg Tab) 650 mg PO Q6 PRN PRN Reason: Fever >100.4 F Last Admin: 11/23/17 08:40 Dose: 650 mg Atorvastatin Calcium (Lipitor) 40 mg PO DAILY [facility] Last Admin: 11/29/17 09:22 Dose: 40 mg Bisoprolol Fumarate (Zebeta) 2.5 mg PO DAILY [facility] Last Admin: 11/29/17 09:24 Dose: 2.5 mg Cilostazol (Pletal) 50 mg PO DAILY [facility] Last Admin: 11/29/17 09:23 Dose: 50 mg Enoxaparin Sodium (Lovenox) 40 mg SC DAILY [facility] PRN Reason: Protocol Last Admin: 11/29/17 09:22 Dose: 40 mg Epoetin Jamaal (Procrit) 4,000 unit SC QWK [facility] Hydrochlorothiazide (Hydrodiuril) 25 mg PO DAILY [facility] Last Admin: 11/29/17 09:33 Dose: 25 mg Meropenem 500 mg/ Sodium (Chloride) 100 mls @ 100 mls/hr IVPB Q8 [facility] PRN Reason: Protocol Stop: 12/08/17 10:46 Last Admin: 11/29/17 09:22 Dose: 100 mls/hr Insulin Detemir (Levemir) 22 units SC Q12 [facility] Insulin Human Regular (Humulin R) 0 units SC ACCU-CHECK [facility] PRN Reason: Protocol Last Admin: 11/29/17 10:59 Dose: 6 units Metformin HCl (Glucophage) 500 mg PO BID [facility] Last Admin: 11/29/17 09:20 Dose: 500 mg Mycophenolate Mofetil (Cellcept) 500 mg PO QPM [facility] Last Admin: 11/28/17 17:30 Dose: 500 mg Mycophenolate Mofetil (Cellcept Cap) 750 mg PO QAM [facility] Pantoprazole Sodium (Protonix Ec Tab) 20 mg PO DAILY [facility] Last Admin: 11/29/17 09:24 Dose: 20 mg Prednisone (Prednisone Tab) 2.5 mg PO DAILY [facility] Last Admin: 11/29/17 09:26 Dose: 2.5 mg Saccharomyces Boulardii (Florastor) 250 mg PO BID [facility] Last Admin: 11/29/17 09:19 Dose: 250 mg Tacrolimus (Prograf Cap) 2 mg PO Q12 [facility] Last Admin: 11/29/17 09:24 Dose: 2 mg - Labs Labs: 11/27/17 05:30 11/25/17 05:55 - Constitutional Appears: No Acute Distress - Eye Exam Eye Exam: Normal appearance - ENT Exam ENT Exam: Mucous Membranes Moist - Neck Exam Neck Exam: Normal Inspection - Respiratory Exam Respiratory Exam: NORMAL BREATHING PATTERN - Cardiovascular Exam Cardiovascular Exam: REGULAR RHYTHM, +S1, +S2 - GI/Abdominal Exam GI & Abdominal Exam: Soft Additional comments: No CVA tenderness - Extremities Exam Additional comments: 1+ edema of Rt foot Lt arm AVF with good bruit Lt hand is warm Assessment and Plan - Assessment and Plan (Free Text) Assessment: Multidrug resistant UTI S/P kidney transplant Plan: Tolerating antibiotics well. Repeat BMP to follow up on renal function
[2017-11-30] MEDS: Meropenem 500 MG in Sodium Chloride 0.9% 100 ML IVPB SCH ×3 (00:29→16:47)
[2017-11-30 06:30] LABS: HEMOGLOBIN 10.8 g/dL (12.0-18.0); MEAN CELL VOLUME 84.5 fl (80.0-94.0); MEAN CORPUSCULAR HEMOGLOBIN 26.7 pg (27.0-31.0); MEAN CORPUSCULAR HGB CONC 31.7 g/dL (33.0-37.0); RBC 4.03 Mil/uL (4.40-5.90); RED CELL DISTRIBUTION WIDTH 14.7 % (11.5-14.5); WHITE BLOOD COUNT 9.9 K/uL (4.8-10.8)
[2017-11-30 06:56] LABS: BLOOD UREA NITROGEN 37 mg/dl (9-20); CALCIUM 10.2 mg/dL (8.4-10.2); GFR AFRICAN-AMERICAN > 60; GFR NON-AFRICAN AMERICAN > 60
[2017-11-30] MEDS: Saccharomyces Boulardi 250 mg Cap PO SCH ×2 (08:46→16:50)
[2017-11-30] MEDS: Enoxaparin 40 mg Syringe SC SCH (08:47)
[2017-11-30] MEDS: Pantoprazole 20 mg EC Tab PO SCH (08:49)
[2017-11-30] MEDS: Cilostazol 50 mg Tab UD PO SCH (08:50)
[2017-11-30] MEDS: Insulin Regular 100 units/ml SC SCH ×4 (08:56→22:00)
[2017-11-30] MEDS: Insulin Detemir 100 Units/ml Inj SC SCH ×3 (08:57→22:00)
--- NOTE | 2017-11-30 09:13 | CP.PCM.PN ---
Subjective - Date & Time of Evaluation Date of Evaluation: 11/30/17 Time of Evaluation: 10:34 - Subjective Subjective: Patient seen and examined at bedside. Has been afebrile. Denies nausea, vomiting or abdominal pain. Patient is tolerating PO and voiding regularly. Denies any fever, chills, dysuria, hematuria, nausea, vomiting, or flank pain. No other complaints at this time. Pt prefers to go home but understands treatment course. Ordered prostate transrectal US as per ID recommendation. Objective - Vital Signs/Intake and Output Vital Signs (last 24 hours): Temp Pulse Resp BP Pulse Ox 98.0 F 68 20 117/74 99 11/30/17 08:15 11/30/17 08:15 11/30/17 08:15 11/30/17 08:15 11/30/17 08:15 - Medications Medications: Current Medications Acetaminophen (Tylenol 325mg Tab) 650 mg PO Q6 PRN PRN Reason: Fever >100.4 F Last Admin: 11/23/17 08:40 Dose: 650 mg Atorvastatin Calcium (Lipitor) 40 mg PO DAILY [facility] Last Admin: 11/30/17 08:48 Dose: 40 mg Bisoprolol Fumarate (Zebeta) 2.5 mg PO DAILY [facility] Last Admin: 11/30/17 08:49 Dose: 2.5 mg Cilostazol (Pletal) 50 mg PO DAILY [facility] Last Admin: 11/30/17 08:50 Dose: 50 mg Enoxaparin Sodium (Lovenox) 40 mg SC DAILY [facility] PRN Reason: Protocol Last Admin: 11/30/17 08:47 Dose: 40 mg Epoetin Jamaal (Procrit) 4,000 unit SC QWK [facility] Hydrochlorothiazide (Hydrodiuril) 25 mg PO DAILY [facility] Last Admin: 11/29/17 09:33 Dose: 25 mg Meropenem 500 mg/ Sodium (Chloride) 100 mls @ 100 mls/hr IVPB Q8 [facility] PRN Reason: Protocol Stop: 12/08/17 10:46 Last Admin: 11/30/17 08:48 Dose: 100 mls/hr Insulin Detemir (Levemir) 22 units SC Q12 [facility] Last Admin: 11/30/17 08:57 Dose: 22 u Insulin Human Regular (Humulin R) 0 units SC ACCU-CHECK [facility] PRN Reason: Protocol Last Admin: 11/30/17 08:56 Dose: 3 units Metformin HCl (Glucophage) 500 mg PO BID [facility] Last Admin: 11/30/17 08:47 Dose: 500 mg Mycophenolate Mofetil (Cellcept) 500 mg PO QPM [facility] Last Admin: 11/29/17 17:15 Dose: 500 mg Mycophenolate Mofetil (Cellcept Cap) 750 mg PO QAM [facility] Pantoprazole Sodium (Protonix Ec Tab) 20 mg PO DAILY [facility] Last Admin: 11/30/17 08:49 Dose: 20 mg Prednisone (Prednisone Tab) 2.5 mg PO DAILY [facility] Last Admin: 11/30/17 08:50 Dose: 2.5 mg Saccharomyces Boulardii (Florastor) 250 mg PO BID [facility] Last Admin: 11/30/17 08:46 Dose: 250 mg Tacrolimus (Prograf Cap) 2 mg PO Q12 [facility] Last Admin: 11/30/17 08:49 Dose: 2 mg - Labs Labs: 11/30/17 06:10 11/30/17 06:10 - Additional Findings Additional findings: - Constitutional Appears: Well, Non-toxic, No Acute Distress - Head Exam Head Exam: NORMAL INSPECTION - Eye Exam Eye Exam: Normal appearance - Neck Exam Neck Exam: Normal Inspection - Respiratory Exam Respiratory Exam: Clear to Ausculation Bilateral, NORMAL BREATHING PATTERN. absent: Decreased Breath Sounds, Rales, Rhonchi, Wheezes - Cardiovascular Exam Cardiovascular Exam: REGULAR RHYTHM, +S1, +S2. absent: Murmur - GI/Abdominal Exam GI & Abdominal Exam: Soft, Normal Bowel Sounds. absent: Tenderness Additional comments: Transplanted kidney in the right lower abdomen, non-tender. Healed scar in mid abdomen. - Extremities Exam Extremities Exam: Normal Inspection. absent: Calf Tenderness Additional comments: Mild edema of right lateral ankle and foot ( improving). - Back Exam Back Exam: NORMAL INSPECTION - Neurological Exam Neurological Exam: Alert, Awake, Oriented x3 - Psychiatric Exam Psychiatric exam: Normal Affect, Normal Mood - Skin Skin Exam: Dry, Intact, Normal Color, Warm Assessment and Plan - Assessment and Plan (Free Text) Assessment: 57 year old male with PMHx of HTN, IDDMII, GERD and right renal transplant in [place] on 01/18/16 admitted for urosepsis and hyperglycemia. Urosepsis -Urine cx on 11/22/17: Klebsiella pneumoniae ssp, resistant to Zosyn, and sensitive to meropenem/ertapenem -Repeat urine cx on 11/27/17 is negative -Immunocompromised s/p right renal transplant -Leukocytosis resolved, afebrile, asymptomatic -c/w meropenem 500mg IVP Q8 (day 7 of 14) -ID and nephrology on board -blood cx: No growth after 5 days -Renal US on 11/23/17: Unremarkable transplanted kidney IDDMII -A1C: 9.0, Improving glycemia with new regime -Increase levemir to 23 units q12 -Continue metformin 500 mg po BID -MDSS scale with hypoglycemic protocol -Consistent carbohydrate renal diet -Accuchecks ACHS Elevated Ferritin level -Last blood transfusion 2 yrs ago -Ferritin level 2270 on 11/23/17 -Hematology recommendation appreciated: Ferritin elevation likely due to infection. f/u ferritin outpatient. Hypertension -Controlled, Asymptomatic -continue home meds Right renal transplant -c/w home medications -Renal us: Unremarkable transplanted kidney Anemia -Likely anemia of chronic disease -H&H: 10.4/32.8, Retic count: 2.0; vitamin B12: 372, folate 16.5 -on ferrous sulfate daily -C/w procrit 4000 units/ml SC qweekly (as per home med, okayed by nephro/heme) -Heme/nephro on board -FOBT: neg Hyperlipidemia: -ASCVD risk 19.3% -c/w Atorvastatin 40 mg po daily DVT prophylaxis -SCD'S -Lovenox 40 mg SC daily Code Status -Full code
--- NOTE | 2017-11-30 13:55 | CP.PCM.PN ---
Subjective - Date & Time of Evaluation Date of Evaluation: 11/30/17 Time of Evaluation: 01:25 - Subjective Subjective: Feels better No c/o flank pain or urinary Sm Objective - Vital Signs/Intake and Output Vital Signs (last 24 hours): Temp Pulse Resp BP Pulse Ox 98.0 F 68 20 117/74 99 11/30/17 08:15 11/30/17 08:15 11/30/17 08:15 11/30/17 08:15 11/30/17 08:15 - Medications Medications: Current Medications Acetaminophen (Tylenol 325mg Tab) 650 mg PO Q6 PRN PRN Reason: Fever >100.4 F Last Admin: 11/23/17 08:40 Dose: 650 mg Atorvastatin Calcium (Lipitor) 40 mg PO DAILY [facility] Last Admin: 11/30/17 08:48 Dose: 40 mg Bisoprolol Fumarate (Zebeta) 2.5 mg PO DAILY [facility] Last Admin: 11/30/17 08:49 Dose: 2.5 mg Cilostazol (Pletal) 50 mg PO DAILY [facility] Last Admin: 11/30/17 08:50 Dose: 50 mg Enoxaparin Sodium (Lovenox) 40 mg SC DAILY [facility] PRN Reason: Protocol Last Admin: 11/30/17 08:47 Dose: 40 mg Epoetin Jamaal (Procrit) 4,000 unit SC QWK [facility] Hydrochlorothiazide (Hydrodiuril) 25 mg PO DAILY [facility] Last Admin: 11/29/17 09:33 Dose: 25 mg Meropenem 500 mg/ Sodium (Chloride) 100 mls @ 100 mls/hr IVPB Q8 [facility] PRN Reason: Protocol Stop: 12/08/17 10:46 Last Admin: 11/30/17 08:48 Dose: 100 mls/hr Insulin Detemir (Levemir) 22 units SC Q12 [facility] Last Admin: 11/30/17 08:57 Dose: 22 u Insulin Human Regular (Humulin R) 0 units SC ACCU-CHECK [facility] PRN Reason: Protocol Last Admin: 11/30/17 13:06 Dose: 4 units Metformin HCl (Glucophage) 500 mg PO BID [facility] Last Admin: 11/30/17 08:47 Dose: 500 mg Mycophenolate Mofetil (Cellcept) 500 mg PO QPM [facility] Last Admin: 11/29/17 17:15 Dose: 500 mg Mycophenolate Mofetil (Cellcept Cap) 750 mg PO QAM [facility] Pantoprazole Sodium (Protonix Ec Tab) 20 mg PO DAILY [facility] Last Admin: 11/30/17 08:49 Dose: 20 mg Prednisone (Prednisone Tab) 2.5 mg PO DAILY [facility] Last Admin: 11/30/17 08:50 Dose: 2.5 mg Saccharomyces Boulardii (Florastor) 250 mg PO BID [facility] Last Admin: 11/30/17 08:46 Dose: 250 mg Tacrolimus (Prograf Cap) 2 mg PO Q12 [facility] Last Admin: 11/30/17 08:49 Dose: 2 mg - Labs Labs: 11/30/17 06:10 11/30/17 06:10 - Constitutional Appears: No Acute Distress - Eye Exam Eye Exam: Normal appearance - ENT Exam ENT Exam: Mucous Membranes Moist - Neck Exam Neck Exam: Normal Inspection - Respiratory Exam Respiratory Exam: NORMAL BREATHING PATTERN Additional comments: Lungs clear - Cardiovascular Exam Cardiovascular Exam: REGULAR RHYTHM, +S1, +S2 - GI/Abdominal Exam GI & Abdominal Exam: Soft Additional comments: No tenderness - Extremities Exam Additional comments: Trace Rt foot edema Good bruit over Lt arn AVF Assessment and Plan - Assessment and Plan (Free Text) Assessment: UT with Klebsiella. Blood cultures remained negative. S/P kidney Tx DM 11 Plan: Labs reviewed. Renal function remains stable Continue Abx per ID
[2017-12-01] MEDS: Meropenem 500 MG in Sodium Chloride 0.9% 100 ML IVPB SCH ×3 (00:52→16:33)
--- NOTE | 2017-12-01 08:13 | CP.PCM.PN ---
Subjective - Date & Time of Evaluation Date of Evaluation: 12/01/17 Time of Evaluation: 08:15 - Subjective Subjective: Patient seen and examined this morning. Has been afebrile. Patient is tolerating PO and voiding regularly. Denies any fever, chills, dysuria, hematuria, nausea, vomiting, or flank pain. Denies chest pain, dyspnea, headache , dizziness nausea, vomiting or abdominal pain. No other complaints at this time. Objective - Vital Signs/Intake and Output Vital Signs (last 24 hours): Temp Pulse Resp BP Pulse Ox 97.5 F L 67 18 125/70 97 12/01/17 00:03 12/01/17 00:03 12/01/17 00:03 12/01/17 00:03 12/01/17 00:03 - Medications Medications: Current Medications Acetaminophen (Tylenol 325mg Tab) 650 mg PO Q6 PRN PRN Reason: Fever >100.4 F Last Admin: 11/23/17 08:40 Dose: 650 mg Atorvastatin Calcium (Lipitor) 40 mg PO DAILY [facility] Last Admin: 11/30/17 08:48 Dose: 40 mg Bisoprolol Fumarate (Zebeta) 2.5 mg PO DAILY [facility] Last Admin: 11/30/17 08:49 Dose: 2.5 mg Cilostazol (Pletal) 50 mg PO DAILY [facility] Last Admin: 11/30/17 08:50 Dose: 50 mg Enoxaparin Sodium (Lovenox) 40 mg SC DAILY [facility] PRN Reason: Protocol Last Admin: 11/30/17 08:47 Dose: 40 mg Epoetin Jamaal (Procrit) 4,000 unit SC QWK [facility] Hydrochlorothiazide (Hydrodiuril) 25 mg PO DAILY [facility] Last Admin: 11/30/17 08:56 Dose: 25 mg Meropenem 500 mg/ Sodium (Chloride) 100 mls @ 100 mls/hr IVPB Q8 [facility] PRN Reason: Protocol Stop: 12/08/17 10:46 Last Admin: 12/01/17 00:52 Dose: 100 mls/hr Insulin Detemir (Levemir) 23 units SC Q12 [facility] Last Admin: 11/30/17 22:00 Dose: 23 u Insulin Human Regular (Humulin R) 0 units SC ACCU-CHECK [facility] PRN Reason: Protocol Last Admin: 11/30/17 22:00 Dose: Not Given Metformin HCl (Glucophage) 500 mg PO BID [facility] Last Admin: 11/30/17 17:26 Dose: 500 mg Mycophenolate Mofetil (Cellcept) 500 mg PO QPM [facility] Last Admin: 11/30/17 17:30 Dose: 500 mg Mycophenolate Mofetil (Cellcept Cap) 750 mg PO QAM [facility] Pantoprazole Sodium (Protonix Ec Tab) 20 mg PO DAILY [facility] Last Admin: 11/30/17 08:49 Dose: 20 mg Prednisone (Prednisone Tab) 2.5 mg PO DAILY [facility] Last Admin: 11/30/17 08:50 Dose: 2.5 mg Saccharomyces Boulardii (Florastor) 250 mg PO BID [facility] Last Admin: 11/30/17 16:50 Dose: 250 mg Tacrolimus (Prograf Cap) 2 mg PO Q12 [facility] Last Admin: 11/30/17 21:26 Dose: 2 mg - Labs Labs: 11/30/17 06:10 11/30/17 06:10 - Additional Findings Additional findings: - Constitutional Appears: Well, Non-toxic, No Acute Distress - Head Exam Head Exam: NORMAL INSPECTION - Eye Exam Eye Exam: Normal appearance - Neck Exam Neck Exam: Normal Inspection - Respiratory Exam Respiratory Exam: Clear to Auscultation Bilateral, NORMAL BREATHING PATTERN. absent: Decreased Breath Sounds, Rales, Rhonchi, Wheezes - Cardiovascular Exam Cardiovascular Exam: REGULAR RHYTHM, +S1, +S2. absent: Murmur - GI/Abdominal Exam GI & Abdominal Exam: Soft, Normal Bowel Sounds. absent: Tenderness Additional comments: Transplanted kidney in the right lower abdomen, non-tender. Healed scar in mid abdomen. - Extremities Exam Extremities Exam: Normal Inspection. absent: Calf Tenderness Additional comments: Mild edema of right lateral ankle and foot ( improving). - Back Exam Back Exam: NORMAL INSPECTION - Neurological Exam Neurological Exam: Alert, Awake, Oriented x3 - Psychiatric Exam Psychiatric exam: Normal Affect, Normal Mood - Skin Skin Exam: Dry, Intact, Normal Color, Warm Assessment and Plan - Assessment and Plan (Free Text) Assessment: 57 year old male with PMHx of HTN, IDDMII, GERD and right renal transplant in [place] on 01/18/16 admitted for urosepsis and hyperglycemia. Urosepsis -Urine cx on 11/22/17: Klebsiella pneumoniae ssp, resistant to Zosyn, and sensitive to meropenem/ertapenem -Repeat urine cx on 11/27/17 is negative -Immunocompromised s/p right renal transplant -Leukocytosis resolved, afebrile, asymptomatic -c/w meropenem 500mg IVP Q8 (day 8 of 14) -ID and nephrology on board -blood cx: No growth after 5 days -Renal US on 11/23/17: Unremarkable transplanted kidney -Prostate US on 12/01/17: IMPRESSION: Unremarkable examination. Specifically, no evidence to suggest abscess formation or other pathologic process. IDDMII -A1C: 9.0, Improving glycemia with new regime -Increase levemir to 23 units q12 -Continue metformin 500 mg po BID -MDSS scale with hypoglycemic protocol -Consistent carbohydrate renal diet -Accuchecks ACHS Elevated Ferritin level -Last blood transfusion 2 yrs ago -Ferritin level 2270 on 11/23/17 -Hematology recommendation appreciated: Ferritin elevation likely due to infection. f/u ferritin outpatient. Hypertension -Controlled, Asymptomatic -continue home meds Right renal transplant -c/w home medications -Renal us: Unremarkable transplanted kidney Anemia -Likely anemia of chronic disease -H&H: 10.4/32.8, Retic count: 2.0; vitamin B12: 372, folate 16.5 -on ferrous sulfate daily -C/w procrit 4000 units/ml SC qweekly (as per home med, okayed by nephro/heme) -Heme/nephro on board -FOBT: neg Hyperlipidemia: -ASCVD risk 19.3% -c/w Atorvastatin 40 mg po daily DVT prophylaxis -SCD'S -Lovenox 40 mg SC daily Code Status -Full code
[2017-12-01] MEDS: Enoxaparin 40 mg Syringe SC SCH (09:25)
[2017-12-01] MEDS: Pantoprazole 20 mg EC Tab PO SCH (09:26)
[2017-12-01] MEDS: Cilostazol 50 mg Tab UD PO SCH (09:26)
[2017-12-01] MEDS: Saccharomyces Boulardi 250 mg Cap PO SCH ×2 (09:27→16:36)
[2017-12-01] MEDS: Insulin Detemir 100 Units/ml Inj SC SCH ×2 (09:28→21:09)
[2017-12-01] MEDS: Insulin Regular 100 units/ml SC SCH ×4 (09:28→22:13)
--- NOTE | 2017-12-01 11:16 | US ---
PROCEDURE: Transrectal prostate ultrasound HISTORY: Assess for prostate abscess COMPARISON: None TECHNIQUE: Standard protocol for this study/examination. FINDINGS: Transabdominal prostate volume: 21.73 ml. Corresponding PPSA 2.61 Periurethral calcifications likely the sequela of chronic prostatitis identified Unremarkable seminal vesicles as visualized. No pelvic masses or lymphadenopathy identified. IMPRESSION: Unremarkable examination. Specifically, no evidence to suggest abscess formation or other pathologic process.
[2017-12-02] MEDS: Meropenem 500 MG in Sodium Chloride 0.9% 100 ML IVPB SCH ×3 (00:56→16:59)
[2017-12-02] MEDS: Insulin Regular 100 units/ml SC SCH ×4 (06:39→22:44)
[2017-12-02] MEDS: Enoxaparin 40 mg Syringe SC SCH (09:03)
[2017-12-02] MEDS: Saccharomyces Boulardi 250 mg Cap PO SCH ×2 (09:04→16:59)
[2017-12-02] MEDS: Pantoprazole 20 mg EC Tab PO SCH (09:04)
[2017-12-02] MEDS: Cilostazol 50 mg Tab UD PO SCH (09:05)
[2017-12-02] MEDS: Insulin Detemir 100 Units/ml Inj SC SCH ×2 (09:06→22:00)
--- NOTE | 2017-12-02 11:14 | CP.PCM.PN ---
Subjective - Date & Time of Evaluation Date of Evaluation: 12/02/17 Time of Evaluation: 11:13 - Subjective Subjective: No acute overnight events. Pt is seen and examined with by bedside. Pt states that he is feeling well, urinating w/o any difficulties. Denies dysuria, no urinary frequency. Pt remains afebrile. Denies abdominal pain n/d/v/c, chills and fever. [facility] used: [id number] Objective - Vital Signs/Intake and Output Vital Signs (last 24 hours): Temp Pulse Resp BP Pulse Ox 98.0 F 59 L 18 147/63 99 12/02/17 07:56 12/02/17 07:56 12/02/17 07:56 12/02/17 07:56 12/02/17 07:56 - Medications Medications: Current Medications Acetaminophen (Tylenol 325mg Tab) 650 mg PO Q6 PRN PRN Reason: Fever >100.4 F Last Admin: 11/23/17 08:40 Dose: 650 mg Atorvastatin Calcium (Lipitor) 40 mg PO DAILY [facility] Last Admin: 12/02/17 09:05 Dose: 40 mg Bisoprolol Fumarate (Zebeta) 2.5 mg PO DAILY [facility] Last Admin: 12/02/17 09:03 Dose: 2.5 mg Cilostazol (Pletal) 50 mg PO DAILY [facility] Last Admin: 12/02/17 09:05 Dose: 50 mg Enoxaparin Sodium (Lovenox) 40 mg SC DAILY [facility] PRN Reason: Protocol Last Admin: 12/02/17 09:03 Dose: 40 mg Epoetin Jamaal (Procrit) 4,000 unit SC QWK [facility] Hydrochlorothiazide (Hydrodiuril) 25 mg PO DAILY [facility] Last Admin: 12/02/17 09:04 Dose: 25 mg Meropenem 500 mg/ Sodium (Chloride) 100 mls @ 100 mls/hr IVPB Q8 [facility] PRN Reason: Protocol Stop: 12/08/17 10:46 Last Admin: 12/02/17 09:05 Dose: 100 mls/hr Insulin Detemir (Levemir) 23 units SC Q12 [facility] Last Admin: 12/02/17 09:06 Dose: 23 units Insulin Human Regular (Humulin R) 0 units SC ACCU-CHECK [facility] PRN Reason: Protocol Last Admin: 12/02/17 06:39 Dose: Not Given Metformin HCl (Glucophage) 500 mg PO BID [facility] Last Admin: 12/02/17 09:04 Dose: 500 mg Mycophenolate Mofetil (Cellcept) 500 mg PO QPM [facility] Last Admin: 12/01/17 18:43 Dose: 500 mg Mycophenolate Mofetil (Cellcept Cap) 750 mg PO QAM [facility] Last Admin: 12/02/17 09:03 Dose: 750 mg Pantoprazole Sodium (Protonix Ec Tab) 20 mg PO DAILY [facility] Last Admin: 12/02/17 09:04 Dose: 20 mg Prednisone (Prednisone Tab) 2.5 mg PO DAILY [facility] Last Admin: 12/02/17 09:05 Dose: 2.5 mg Saccharomyces Boulardii (Florastor) 250 mg PO BID [facility] Last Admin: 12/02/17 09:04 Dose: 250 mg Tacrolimus (Prograf Cap) 2 mg PO Q12 [facility] Last Admin: 12/02/17 09:02 Dose: 2 mg - Labs Labs: 11/30/17 06:10 11/30/17 06:10 - Constitutional Appears: No Acute Distress - Head Exam Head Exam: ATRAUMATIC, NORMOCEPHALIC - Eye Exam Eye Exam: EOMI, Normal appearance - ENT Exam ENT Exam: Mucous Membranes Moist - Respiratory Exam Respiratory Exam: Clear to Ausculation Bilateral, NORMAL BREATHING PATTERN. absent: Wheezes, Respiratory Distress - Cardiovascular Exam Cardiovascular Exam: REGULAR RHYTHM, +S1, +S2 - GI/Abdominal Exam GI & Abdominal Exam: Soft, Normal Bowel Sounds. absent: Tenderness Additional comments: Old vertical abdominal scar in the RLQ- well healed - Extremities Exam Extremities Exam: Full ROM, Pedal Edema (R foot ) Additional comments: Thick keratinized skin in the heel of feet, R>L - Back Exam Back Exam: NORMAL INSPECTION. absent: CVA tenderness (L), CVA tenderness (R) - Neurological Exam Neurological Exam: Alert, Awake, Oriented x3 - Psychiatric Exam Psychiatric exam: Normal Affect, Normal Mood - Skin Skin Exam: Dry, Intact, Normal Color, Warm Assessment and Plan - Assessment and Plan (Free Text) Assessment: Assessment/Plan: 57 year old male with PMHx of HTN, IDDMII, GERD and right renal transplant in [place] on 01/18/16 admitted for urosepsis and hyperglycemia. Pt needs IV abx, Day 03/17 Urosepsis -Urine cx on 11/22/17: Klebsiella pneumoniae ssp, resistant to Zosyn, and sensitive to meropenem/ertapenem -Repeat urine cx on 11/27/17 is negative -Immunocompromised s/p right renal transplant -Leukocytosis resolved, afebrile, asymptomatic -c/w meropenem 500mg IVP Q8 (day ) -ID and nephrology on board -blood cx: No growth after 5 days -Renal US on 11/23/17: Unremarkable transplanted kidney -prostate u/s 12/01/17: unremarkable; no evidence of abscess IDDMII -A1C: 9.0, Improving glycemia with new regime -Increase levemir to 23 units q12 -Continue metformin 500 mg po BID -MDSS scale with hypoglycemic protocol -Consistent carbohydrate renal diet -Accuchecks ACHS Elevated Ferritin level -Likely 2/2 to acute infection, trending down -last blood transfusion 2 yrs ago -Ferritin level 2270 on 11/23/17, repeat Ferritin 1410 (12/02/17) -Hematology on board, recommendation appreciated Hypertension -Controlled, Asymptomatic -continue home meds Right renal transplant -c/w home medications -Renal us: Unremarkable transplanted kidney Anemia -Likely anemia of chronic disease, stable -H&H: 10.8/34.1 -Retic count: 2.0; vitamin B12: 372, folate 16.5 -C/W ferrous sulfate daily -C/w procrit 4000 units/ml SC qweekly (as per home med, okayed by nephro/heme) -Heme/nephro on board -FOBT: neg Hyperlipidemia: -ASCVD risk 19.3% -c/w Atorvastatin 40 mg po daily DVT prophylaxis -SCD'S -Lovenox 40 mg SC daily
--- NOTE | 2017-12-02 13:53 | CP.PCM.PN ---
Subjective - Date & Time of Evaluation Date of Evaluation: 12/02/17 Time of Evaluation: 01:35 - Subjective Subjective: Appears comfortable No urinary Sm or abdominal pain Objective - Vital Signs/Intake and Output Vital Signs (last 24 hours): Temp Pulse Resp BP Pulse Ox 98.0 F 59 L 18 147/63 99 12/02/17 07:56 12/02/17 07:56 12/02/17 07:56 12/02/17 07:56 12/02/17 07:56 - Medications Medications: Current Medications Acetaminophen (Tylenol 325mg Tab) 650 mg PO Q6 PRN PRN Reason: Fever >100.4 F Last Admin: 11/23/17 08:40 Dose: 650 mg Atorvastatin Calcium (Lipitor) 40 mg PO DAILY [facility] Last Admin: 12/02/17 09:05 Dose: 40 mg Bisoprolol Fumarate (Zebeta) 2.5 mg PO DAILY [facility] Last Admin: 12/02/17 09:03 Dose: 2.5 mg Cilostazol (Pletal) 50 mg PO DAILY [facility] Last Admin: 12/02/17 09:05 Dose: 50 mg Enoxaparin Sodium (Lovenox) 40 mg SC DAILY [facility] PRN Reason: Protocol Last Admin: 12/02/17 09:03 Dose: 40 mg Epoetin Jamaal (Procrit) 4,000 unit SC QWK [facility] Hydrochlorothiazide (Hydrodiuril) 25 mg PO DAILY [facility] Last Admin: 12/02/17 09:04 Dose: 25 mg Meropenem 500 mg/ Sodium (Chloride) 100 mls @ 100 mls/hr IVPB Q8 [facility] PRN Reason: Protocol Stop: 12/08/17 10:46 Last Admin: 12/02/17 09:05 Dose: 100 mls/hr Insulin Detemir (Levemir) 23 units SC Q12 [facility] Last Admin: 12/02/17 09:06 Dose: 23 units Insulin Human Regular (Humulin R) 0 units SC ACCU-CHECK [facility] PRN Reason: Protocol Last Admin: 12/02/17 12:47 Dose: 3 units Metformin HCl (Glucophage) 500 mg PO BID [facility] Last Admin: 12/02/17 09:04 Dose: 500 mg Mycophenolate Mofetil (Cellcept) 500 mg PO QPM [facility] Last Admin: 12/01/17 18:43 Dose: 500 mg Mycophenolate Mofetil (Cellcept Cap) 750 mg PO QAM [facility] Last Admin: 12/02/17 09:03 Dose: 750 mg Pantoprazole Sodium (Protonix Ec Tab) 20 mg PO DAILY [facility] Last Admin: 12/02/17 09:04 Dose: 20 mg Prednisone (Prednisone Tab) 2.5 mg PO DAILY [facility] Last Admin: 12/02/17 09:05 Dose: 2.5 mg Saccharomyces Boulardii (Florastor) 250 mg PO BID [facility] Last Admin: 12/02/17 09:04 Dose: 250 mg Tacrolimus (Prograf Cap) 2 mg PO Q12 [facility] Last Admin: 12/02/17 09:02 Dose: 2 mg - Labs Labs: 11/30/17 06:10 11/30/17 06:10 - Constitutional Appears: No Acute Distress - Eye Exam Eye Exam: Normal appearance - ENT Exam ENT Exam: Mucous Membranes Moist - Respiratory Exam Respiratory Exam: NORMAL BREATHING PATTERN Additional comments: Lungs clear - Cardiovascular Exam Cardiovascular Exam: REGULAR RHYTHM, +S1, +S2 - GI/Abdominal Exam GI & Abdominal Exam: Soft Additional comments: No swelling or tenderness over allograft - Extremities Exam Additional comments: No edema Assessment and Plan - Assessment and Plan (Free Text) Assessment: Recurrent UTI, ESBL + Klebsiella S/P kidney Tx. Renal function is stable HTN,DM Plan: Continue current meds Prostate US report rviewed & is unremarkable Abx per ID Will see pt as needed.
[2017-12-03] MEDS: Meropenem 500 MG in Sodium Chloride 0.9% 100 ML IVPB SCH ×3 (00:38→17:29)
[2017-12-03] MEDS: Insulin Regular 100 units/ml SC SCH ×4 (07:30→22:34)
[2017-12-03] MEDS: Saccharomyces Boulardi 250 mg Cap PO SCH ×2 (08:39→17:30)
[2017-12-03] MEDS: Cilostazol 50 mg Tab UD PO SCH (08:40)
[2017-12-03] MEDS: Enoxaparin 40 mg Syringe SC SCH (08:41)
[2017-12-03] MEDS: Insulin Detemir 100 Units/ml Inj SC SCH ×2 (08:41→22:34)
[2017-12-03] MEDS: Pantoprazole 20 mg EC Tab PO SCH (08:41)
--- NOTE | 2017-12-03 11:54 | CP.PCM.PN ---
Subjective - Date & Time of Evaluation Date of Evaluation: 12/03/17 Time of Evaluation: 11:51 - Subjective Subjective: No acute overnight events. Pt seen and examined this AM, by bedside. No difficulties urinating, dysuria, hematuria. Denies chills, fevers. Good PO intake and ambulating. [facility] used; [id number] Objective - Vital Signs/Intake and Output Vital Signs (last 24 hours): Temp Pulse Resp BP Pulse Ox 98.7 F 64 20 109/68 98 12/03/17 08:55 12/03/17 08:55 12/03/17 08:55 12/03/17 08:55 12/03/17 08:55 - Medications Medications: Current Medications Acetaminophen (Tylenol 325mg Tab) 650 mg PO Q6 PRN PRN Reason: Fever >100.4 F Last Admin: 11/23/17 08:40 Dose: 650 mg Atorvastatin Calcium (Lipitor) 40 mg PO DAILY [facility] Last Admin: 12/03/17 08:41 Dose: 40 mg Bisoprolol Fumarate (Zebeta) 2.5 mg PO DAILY [facility] Last Admin: 12/03/17 08:39 Dose: 2.5 mg Cilostazol (Pletal) 50 mg PO DAILY [facility] Last Admin: 12/03/17 08:40 Dose: 50 mg Enoxaparin Sodium (Lovenox) 40 mg SC DAILY [facility] PRN Reason: Protocol Last Admin: 12/03/17 08:41 Dose: 40 mg Epoetin Jamaal (Procrit) 4,000 unit SC QWK [facility] Hydrochlorothiazide (Hydrodiuril) 25 mg PO DAILY [facility] Last Admin: 12/03/17 08:40 Dose: 25 mg Meropenem 500 mg/ Sodium (Chloride) 100 mls @ 100 mls/hr IVPB Q8 [facility] PRN Reason: Protocol Stop: 12/08/17 10:46 Last Admin: 12/03/17 08:42 Dose: 100 mls/hr Insulin Detemir (Levemir) 23 units SC Q12 [facility] Last Admin: 12/03/17 08:41 Dose: 23 units Insulin Human Regular (Humulin R) 0 units SC ACCU-CHECK [facility] PRN Reason: Protocol Last Admin: 12/03/17 07:30 Dose: 2 units Metformin HCl (Glucophage) 500 mg PO BID [facility] Last Admin: 12/03/17 08:39 Dose: 500 mg Mycophenolate Mofetil (Cellcept) 500 mg PO QPM [facility] Last Admin: 12/02/17 17:03 Dose: 500 mg Mycophenolate Mofetil (Cellcept Cap) 750 mg PO QAM [facility] Last Admin: 12/03/17 08:39 Dose: 750 mg Pantoprazole Sodium (Protonix Ec Tab) 20 mg PO DAILY [facility] Last Admin: 12/03/17 08:41 Dose: 20 mg Prednisone (Prednisone Tab) 2.5 mg PO DAILY [facility] Last Admin: 12/03/17 08:40 Dose: 2.5 mg Saccharomyces Boulardii (Florastor) 250 mg PO BID [facility] Last Admin: 12/03/17 08:39 Dose: 250 mg Tacrolimus (Prograf Cap) 2 mg PO Q12 [facility] Last Admin: 12/03/17 08:41 Dose: 2 mg - Labs Labs: 11/30/17 06:10 11/30/17 06:10 - Constitutional Appears: No Acute Distress - Head Exam Head Exam: ATRAUMATIC, NORMOCEPHALIC - Eye Exam Eye Exam: EOMI, Normal appearance - ENT Exam ENT Exam: Mucous Membranes Moist - Respiratory Exam Respiratory Exam: Clear to Ausculation Bilateral, NORMAL BREATHING PATTERN. absent: Wheezes - Cardiovascular Exam Cardiovascular Exam: REGULAR RHYTHM, +S1, +S2 - GI/Abdominal Exam GI & Abdominal Exam: Soft, Normal Bowel Sounds. absent: Tenderness Additional comments: Large vertical scar in the RLQ from renal transplant surgery in the past, well healed Large abdominal hernia around the incision site - Extremities Exam Extremities Exam: Full ROM, Normal Inspection. absent: Pedal Edema - Back Exam Back Exam: NORMAL INSPECTION. absent: CVA tenderness (L), CVA tenderness (R) - Neurological Exam Neurological Exam: Alert, Awake, Normal Gait - Psychiatric Exam Psychiatric exam: Normal Affect, Normal Mood - Skin Skin Exam: Dry, Intact, Normal Color, Warm Assessment and Plan - Assessment and Plan (Free Text) Assessment: Assessment/Plan: 57 year old male with PMHx of HTN, IDDMII, GERD and right renal transplant in [place] on 01/18/16 admitted for urosepsis and hyperglycemia. Pt needs IV abx, Day 10 Urosepsis -Resolved, remains afebrile -Urine cx on 5/22/18: Klebsiella pneumoniae ssp, sensitive only to meropenem/ ertapenem -Repeat urine cx on 11/27/17, negative -Immunocompromised s/p right renal transplant -Leukocytosis resolved, afebrile, asymptomatic -c/w meropenem 500mg IVP Q8 (day 10 of 14) -ID and nephrology on board -blood cx: No growth final -Renal US on 11/23/17: Unremarkable transplanted kidney -prostate u/s 12/01/17: unremarkable; no evidence of abscess IDDMII -A1C: 9.0, Improving glycemia with new regime -Increase levemir to 23 units q12 -Continue metformin 500 mg po BID -MDSS scale with hypoglycemic protocol -Consistent carbohydrate renal diet -Accuchecks ACHS Elevated Ferritin level -Likely 2/2 to acute infection, trending down -last blood transfusion 2 yrs ago -Ferritin level 2270 on 11/23/17, repeat Ferritin 1410 (12/02/17) -Hematology on board, recommendation appreciated Hypertension -Controlled, Asymptomatic -c/w home meds Right renal transplant -c/w home medications -Renal us: Unremarkable transplanted kidney Anemia -Likely anemia of chronic disease, stable -H&H: 10.8/34.1 -Retic count: 2.0; vitamin B12: 372, folate 16.5 -C/W ferrous sulfate daily -C/w procrit 4000 units/ml SC qweekly (as per home med, okayed by nephro/heme) -Heme/nephro on board -FOBT: neg Hyperlipidemia: -ASCVD risk 19.3% -c/w Atorvastatin 40 mg po daily DVT prophylaxis -SCD'S -Lovenox 40 mg SC daily
[2017-12-04] MEDS: Meropenem 500 MG in Sodium Chloride 0.9% 100 ML IVPB SCH ×3 (00:38→16:31)
[2017-12-04] MEDS: Insulin Regular 100 units/ml SC SCH ×4 (07:37→23:00)
[2017-12-04 08:11] LABS: BASO # 0.1 K/uL (0.0-0.2); BASO % 0.8 % (0.0-2.0); EOS # 0.1 K/uL (0.0-0.7); EOS % 1.6 % (0.0-4.0); LYMPH # 2.9 K/uL (1.0-4.3); LYMPH % 33.2 % (20.0-40.0); MEAN CELL VOLUME 84.9 fl (80.0-94.0); MEAN CORPUSCULAR HEMOGLOBIN 27.3 pg (27.0-31.0); MEAN CORPUSCULAR HGB CONC 32.1 g/dL (33.0-37.0); MEAN PLATELET VOLUME 9.6 fl (7.2-11.7); MONO # 0.7 K/uL (0.0-0.8); MONO % 8.2 % (0.0-10.0); NEUT # 4.9 K/uL (1.8-7.0); NEUT % 56.2 % (50.0-75.0); NRBC % 0.3 % (0.0-0.0); RBC 4.04 Mil/uL (4.40-5.90); RED CELL DISTRIBUTION WIDTH 14.8 % (11.5-14.5); WHITE BLOOD COUNT 8.7 K/uL (4.8-10.8)
[2017-12-04] MEDS: Enoxaparin 40 mg Syringe SC SCH (08:12)
[2017-12-04] MEDS: Cilostazol 50 mg Tab UD PO SCH (08:12)
[2017-12-04] MEDS: Pantoprazole 20 mg EC Tab PO SCH (08:13)
[2017-12-04] MEDS: Insulin Detemir 100 Units/ml Inj SC SCH ×2 (08:13→21:00)
[2017-12-04] MEDS: Saccharomyces Boulardi 250 mg Cap PO SCH ×2 (08:13→16:29)
--- NOTE | 2017-12-04 12:04 | CP.PCM.PN ---
Subjective - Date & Time of Evaluation Date of Evaluation: 12/04/17 Time of Evaluation: 11:10 - Subjective Subjective: NAEO. Pt seen and examined this AM. No difficulties urinating, dysuria, hematuria. Denies chills, fevers. Good PO intake and ambulating. Objective - Vital Signs/Intake and Output Vital Signs (last 24 hours): Temp Pulse Resp BP Pulse Ox 98.4 F 63 20 136/74 96 12/04/17 08:42 12/04/17 08:42 12/04/17 08:42 12/04/17 08:42 12/04/17 08:42 - Medications Medications: Current Medications Acetaminophen (Tylenol 325mg Tab) 650 mg PO Q6 PRN PRN Reason: Fever >100.4 F Last Admin: 11/23/17 08:40 Dose: 650 mg Atorvastatin Calcium (Lipitor) 40 mg PO DAILY [facility] Last Admin: 12/04/17 08:13 Dose: 40 mg Bisoprolol Fumarate (Zebeta) 2.5 mg PO DAILY [facility] Last Admin: 12/04/17 08:13 Dose: 2.5 mg Cilostazol (Pletal) 50 mg PO DAILY [facility] Last Admin: 12/04/17 08:12 Dose: 50 mg Epoetin Jamaal (Procrit) 4,000 unit SC QWK [facility] Hydrochlorothiazide (Hydrodiuril) 25 mg PO DAILY [facility] Last Admin: 12/04/17 08:12 Dose: 25 mg Meropenem 500 mg/ Sodium (Chloride) 100 mls @ 100 mls/hr IVPB Q8 [facility] PRN Reason: Protocol Stop: 12/08/17 10:46 Last Admin: 12/04/17 08:14 Dose: 100 mls/hr Insulin Detemir (Levemir) 23 units SC Q12 [facility] Last Admin: 12/04/17 08:13 Dose: 23 units Insulin Human Regular (Humulin R) 0 units SC ACCU-CHECK [facility] PRN Reason: Protocol Last Admin: 12/04/17 07:37 Dose: Not Given Metformin HCl (Glucophage) 500 mg PO BID [facility] Last Admin: 12/04/17 08:13 Dose: 500 mg Mycophenolate Mofetil (Cellcept) 500 mg PO QPM [facility] Last Admin: 12/03/17 17:30 Dose: 500 mg Mycophenolate Mofetil (Cellcept Cap) 750 mg PO QAM [facility] Last Admin: 12/04/17 08:12 Dose: 750 mg Pantoprazole Sodium (Protonix Ec Tab) 20 mg PO DAILY [facility] Last Admin: 12/04/17 08:13 Dose: 20 mg Saccharomyces Boulardii (Florastor) 250 mg PO BID [facility] Last Admin: 12/04/17 08:13 Dose: 250 mg Tacrolimus (Prograf Cap) 2 mg PO Q12 [facility] Last Admin: 12/04/17 08:12 Dose: 2 mg - Labs Labs: 12/04/17 05:30 11/30/17 06:10 - Constitutional Appears: No Acute Distress - Head Exam Head Exam: ATRAUMATIC - Eye Exam Eye Exam: EOMI Pupil Exam: PERRL - ENT Exam ENT Exam: Mucous Membranes Moist - Neck Exam Neck Exam: Full ROM - Respiratory Exam Respiratory Exam: Clear to Ausculation Bilateral - GI/Abdominal Exam GI & Abdominal Exam: Soft. absent: Tenderness - Extremities Exam Extremities Exam: Full ROM. absent: Pedal Edema, Tenderness - Back Exam Back Exam: absent: CVA tenderness (L), CVA tenderness (R) - Neurological Exam Neurological Exam: Alert, Awake, Oriented x3 - Psychiatric Exam Psychiatric exam: Normal Affect, Normal Mood - Skin Skin Exam: Dry, Normal Color, Warm Assessment and Plan - Assessment and Plan (Free Text) Plan: 57 year old male with PMHx of HTN, IDDMII, GERD and right renal transplant in [place] on 01/18/16 admitted for urosepsis and hyperglycemia. Pt needs IV abx, Day 05/17 Urosepsis -Resolved, remains afebrile -Urine cx on 11/22/17: Klebsiella pneumoniae ssp, sensitive only to meropenem/ ertapenem -Repeat urine cx on 11/27/17, negative -Immunocompromised s/p right renal transplant -Leukocytosis resolved, afebrile, asymptomatic -c/w meropenem 500mg IVP Q8 (day ) -ID and nephrology on board -blood cx: No growth final -Renal US on 11/23/17: Unremarkable transplanted kidney -prostate u/s 12/01/17: unremarkable; no evidence of abscess IDDMII -A1C: 9.0, Improving glycemia with new regime -Increase levemir to 23 units q12 -Continue metformin 500 mg po BID -MDSS scale with hypoglycemic protocol -Consistent carbohydrate renal diet -Accuchecks ACHS Elevated Ferritin level -Likely 2/2 to acute infection, trending down -last blood transfusion 2 yrs ago -Ferritin level 2270 on 11/23/17, repeat Ferritin 1410 (12/02/17) -Hematology on board, recommendation appreciated Hypertension -Controlled, Asymptomatic -c/w home meds Right renal transplant -c/w home medications -Renal us: Unremarkable transplanted kidney Anemia -Likely anemia of chronic disease, stable -H&H: 10.8/34.1 -Retic count: 2.0; vitamin B12: 372, folate 16.5 -C/W ferrous sulfate daily -C/w procrit 4000 units/ml SC qweekly (as per home med, okayed by nephro/heme) -Heme/nephro on board -FOBT: neg Hyperlipidemia: -ASCVD risk 19.3% -c/w Atorvastatin 40 mg po daily DVT prophylaxis -SCD'S -Lovenox 40 mg SC daily
[2017-12-04] MEDS ORDERED: Enoxaparin 40 mg Syringe SC SCH ×2 (12:15)
[2017-12-05] MEDS: Meropenem 500 MG in Sodium Chloride 0.9% 100 ML IVPB SCH ×3 (00:20→17:13)
[2017-12-05 06:35] LABS: ALBUMIN 3.8 g/dL (3.5-5.0); ALT/SGPT 48 U/L (21-72); AST/SGOT 35 U/L (17-59); BLOOD UREA NITROGEN 40 mg/dl (9-20); CALCIUM 10.5 mg/dL (8.4-10.2); GFR AFRICAN-AMERICAN > 60; GFR NON-AFRICAN AMERICAN > 60
[2017-12-05] MEDS: Insulin Regular 100 units/ml SC SCH ×4 (06:38→22:29)
[2017-12-05] MEDS: Saccharomyces Boulardi 250 mg Cap PO SCH ×2 (08:51→17:11)
[2017-12-05] MEDS: Pantoprazole 20 mg EC Tab PO SCH (08:52)
[2017-12-05] MEDS: Cilostazol 50 mg Tab UD PO SCH (08:52)
[2017-12-05] MEDS: Insulin Detemir 100 Units/ml Inj SC SCH ×2 (08:53→21:08)
[2017-12-05] MEDS: Enoxaparin 40 mg Syringe SC SCH (08:53)
--- NOTE | 2017-12-05 09:18 | CP.PCM.PN ---
Subjective - Date & Time of Evaluation Date of Evaluation: 12/05/17 Time of Evaluation: 09:13 - Subjective Subjective: No acute overnight events. Pt states that he is doing well. Endorsing loose BM, not watery x 8 days, 1-2 BM a day. Denies dyspnea, dysuria, urinary frequency, n /v/c, chills and fevers. ABX D 06/16 Objective - Vital Signs/Intake and Output Vital Signs (last 24 hours): Temp Pulse Resp BP Pulse Ox 98.1 F 68 20 99/63 L 100 12/05/17 08:11 12/05/17 08:11 12/05/17 08:11 12/05/17 08:11 12/05/17 08:11 - Medications Medications: Current Medications Acetaminophen (Tylenol 325mg Tab) 650 mg PO Q6 PRN PRN Reason: Fever >100.4 F Last Admin: 11/23/17 08:40 Dose: 650 mg Atorvastatin Calcium (Lipitor) 40 mg PO DAILY [facility] Last Admin: 12/05/17 08:52 Dose: 40 mg Bisoprolol Fumarate (Zebeta) 2.5 mg PO DAILY [facility] Last Admin: 12/05/17 08:52 Dose: 2.5 mg Cilostazol (Pletal) 50 mg PO DAILY [facility] Last Admin: 12/05/17 08:52 Dose: 50 mg Enoxaparin Sodium (Lovenox) 40 mg SC DAILY [facility] PRN Reason: Protocol Last Admin: 12/05/17 08:53 Dose: 40 mg Epoetin Jamaal (Procrit) 4,000 unit SC QWK [facility] Hydrochlorothiazide (Hydrodiuril) 25 mg PO DAILY [facility] Last Admin: 12/05/17 08:57 Dose: 25 mg Meropenem 500 mg/ Sodium (Chloride) 100 mls @ 100 mls/hr IVPB Q8 [facility] PRN Reason: Protocol Stop: 12/08/17 10:46 Last Admin: 12/05/17 08:53 Dose: 100 mls/hr Insulin Detemir (Levemir) 23 units SC Q12 [facility] Last Admin: 12/05/17 08:53 Dose: 23 units Insulin Human Regular (Humulin R) 0 units SC ACCU-CHECK [facility] PRN Reason: Protocol Last Admin: 12/05/17 06:38 Dose: Not Given Metformin HCl (Glucophage) 500 mg PO BID [facility] Last Admin: 12/05/17 08:52 Dose: 500 mg Mycophenolate Mofetil (Cellcept) 500 mg PO QPM [facility] Last Admin: 12/04/17 17:03 Dose: 500 mg Mycophenolate Mofetil (Cellcept Cap) 750 mg PO QAM [facility] Last Admin: 12/05/17 08:51 Dose: 750 mg Pantoprazole Sodium (Protonix Ec Tab) 20 mg PO DAILY [facility] Last Admin: 12/05/17 08:52 Dose: 20 mg Saccharomyces Boulardii (Florastor) 250 mg PO BID [facility] Last Admin: 12/05/17 08:51 Dose: 250 mg Tacrolimus (Prograf Cap) 2 mg PO Q12 [facility] Last Admin: 12/05/17 08:52 Dose: 2 mg - Labs Labs: 12/04/17 05:30 12/05/17 05:50 - Constitutional Appears: No Acute Distress - Head Exam Head Exam: ATRAUMATIC, NORMAL INSPECTION - Eye Exam Eye Exam: EOMI, Normal appearance - ENT Exam ENT Exam: Mucous Membranes Moist - Respiratory Exam Respiratory Exam: Clear to Ausculation Bilateral, NORMAL BREATHING PATTERN. absent: Rhonchi, Wheezes - Cardiovascular Exam Cardiovascular Exam: REGULAR RHYTHM, +S1, +S2 - GI/Abdominal Exam GI & Abdominal Exam: Soft, Normal Bowel Sounds. absent: Tenderness Additional comments: RLQ vertical scar from old surgery, healed. RLQ abdominal hernia - Extremities Exam Extremities Exam: Full ROM, Normal Inspection. absent: Calf Tenderness, Pedal Edema - Back Exam Back Exam: NORMAL INSPECTION. absent: CVA tenderness (L), CVA tenderness (R) - Neurological Exam Neurological Exam: Alert, Awake - Psychiatric Exam Psychiatric exam: Normal Mood - Skin Skin Exam: Dry, Intact, Normal Color, Warm Assessment and Plan - Assessment and Plan (Free Text) Assessment: Assessment/Plan: 57 year old male with PMHx of HTN, IDDMII, GERD and right renal transplant in [place] on 01/18/16 admitted for urosepsis and hyperglycemia. Pt needs IV abx, Day 12 Urosepsis -Resolved, remains afebrile -Urine cx on 11/22/17: Klebsiella pneumoniae ssp, sensitive only to meropenem/ ertapenem -Repeat urine cx on 11/27/17, negative -Immunocompromised s/p right renal transplant -Leukocytosis resolved, afebrile, asymptomatic -c/w meropenem 500mg IVP Q8 (day 12 of 14) -ID and nephrology on board -blood cx: No growth final -Renal US on 11/23/17: Unremarkable transplanted kidney -prostate u/s 12/01/17: unremarkable; no evidence of abscess IDDMII -A1C: 9.0, Improving hyperglycemia with new regime -Increase levemir to 23 units q12 -Continue metformin 500 mg po BID -MDSS scale with hypoglycemic protocol -Consistent carbohydrate renal diet -Accuchecks ACHS Elevated Ferritin level -Likely 2/2 to acute infection, trending down -last blood transfusion 2 yrs ago -Ferritin level 2270 on 11/23/17, repeat Ferritin 1410 (12/02/17) -Hematology on board, recommendation appreciated Hypertension -Controlled, Asymptomatic -c/w home meds Right renal transplant -c/w home medications -Renal us: Unremarkable transplanted kidney Anemia -Likely anemia of chronic disease, stable -H&H: 11/34.3 -Retic count: 2.0; vitamin B12: 372, folate 16.5 -C/W ferrous sulfate daily -C/w procrit 4000 units/ml SC qweekly (as per home med, okayed by nephro/heme) -Heme/nephro on board -FOBT: neg Hyperlipidemia: -ASCVD risk 19.3% -c/w Atorvastatin 40 mg po daily DVT prophylaxis -SCD'S -Lovenox 40 mg SC daily
[2017-12-06] MEDS: Meropenem 500 MG in Sodium Chloride 0.9% 100 ML IVPB SCH ×3 (00:09→16:22)
[2017-12-06] MEDS: Insulin Regular 100 units/ml SC SCH ×4 (06:43→22:01)
[2017-12-06] MEDS: Enoxaparin 40 mg Syringe SC SCH (08:03)
[2017-12-06] MEDS: Cilostazol 50 mg Tab UD PO SCH (08:03)
[2017-12-06] MEDS: Saccharomyces Boulardi 250 mg Cap PO SCH ×2 (08:03→16:23)
[2017-12-06] MEDS: Pantoprazole 20 mg EC Tab PO SCH (08:04)
[2017-12-06] MEDS: Insulin Detemir 100 Units/ml Inj SC SCH ×2 (08:05→21:37)
--- NOTE | 2017-12-06 09:01 | CP.PCM.PN ---
Subjective - Date & Time of Evaluation Date of Evaluation: 12/06/17 Time of Evaluation: 08:59 - Subjective Subjective: No acute overnight events. Pt states that he is doing well. Denies dyspnea, palpitations, n/v/d/c, chills, fever, dysuria, and urinary frequency. Objective - Vital Signs/Intake and Output Vital Signs (last 24 hours): Temp Pulse Resp BP Pulse Ox 97.8 F 67 20 95/61 L 97 12/06/17 08:11 12/06/17 08:11 12/06/17 08:11 12/06/17 08:11 12/06/17 08:11 - Medications Medications: Current Medications Acetaminophen (Tylenol 325mg Tab) 650 mg PO Q6 PRN PRN Reason: Fever >100.4 F Last Admin: 11/23/17 08:40 Dose: 650 mg Atorvastatin Calcium (Lipitor) 40 mg PO DAILY [facility] Last Admin: 12/06/17 08:05 Dose: 40 mg Bisoprolol Fumarate (Zebeta) 2.5 mg PO DAILY [facility] Last Admin: 12/06/17 08:04 Dose: 2.5 mg Cilostazol (Pletal) 50 mg PO DAILY [facility] Last Admin: 12/06/17 08:03 Dose: 50 mg Enoxaparin Sodium (Lovenox) 40 mg SC DAILY [facility] PRN Reason: Protocol Last Admin: 12/06/17 08:03 Dose: 40 mg Epoetin Jamaal (Procrit) 4,000 unit SC QWK [facility] Hydrochlorothiazide (Hydrodiuril) 25 mg PO DAILY [facility] Last Admin: 12/06/17 08:07 Dose: 25 mg Meropenem 500 mg/ Sodium (Chloride) 100 mls @ 100 mls/hr IVPB Q8 [facility] PRN Reason: Protocol Stop: 12/08/17 10:46 Last Admin: 12/06/17 08:03 Dose: 100 mls/hr Insulin Detemir (Levemir) 23 units SC Q12 [facility] Last Admin: 12/06/17 08:05 Dose: 23 units Insulin Human Regular (Humulin R) 0 units SC ACCU-CHECK [facility] PRN Reason: Protocol Last Admin: 12/06/17 06:43 Dose: Not Given Metformin HCl (Glucophage) 500 mg PO BID [facility] Last Admin: 12/06/17 08:03 Dose: 500 mg Mycophenolate Mofetil (Cellcept) 500 mg PO QPM [facility] Last Admin: 12/05/17 17:18 Dose: 500 mg Mycophenolate Mofetil (Cellcept Cap) 750 mg PO QAM [facility] Last Admin: 12/06/17 08:03 Dose: 750 mg Pantoprazole Sodium (Protonix Ec Tab) 20 mg PO DAILY [facility] Last Admin: 12/06/17 08:04 Dose: 20 mg Saccharomyces Boulardii (Florastor) 250 mg PO BID [facility] Last Admin: 12/06/17 08:03 Dose: 250 mg Tacrolimus (Prograf Cap) 2 mg PO Q12 [facility] Last Admin: 12/06/17 08:05 Dose: 2 mg - Labs Labs: 12/04/17 05:30 12/05/17 05:50 - Constitutional Appears: No Acute Distress, Other (sitting in chair by bedside ) - Head Exam Head Exam: ATRAUMATIC, NORMAL INSPECTION - Eye Exam Eye Exam: EOMI, Normal appearance - ENT Exam ENT Exam: Mucous Membranes Moist - Neck Exam Neck Exam: Full ROM - Respiratory Exam Respiratory Exam: Clear to Ausculation Bilateral, NORMAL BREATHING PATTERN. absent: Rhonchi, Wheezes - Cardiovascular Exam Cardiovascular Exam: REGULAR RHYTHM, +S1, +S2 - GI/Abdominal Exam GI & Abdominal Exam: Soft, Normal Bowel Sounds. absent: Tenderness Additional comments: RLQ old healed scar. Hernia noted around surgery site in RLQ - Extremities Exam Extremities Exam: Full ROM, Pedal Edema (mild pedal edema in R, hyperkaratosis in R heel ). absent: Calf Tenderness - Back Exam Back Exam: NORMAL INSPECTION. absent: CVA tenderness (L), CVA tenderness (R) - Neurological Exam Neurological Exam: Alert, Awake, Oriented x3 - Psychiatric Exam Psychiatric exam: Normal Affect, Normal Mood - Skin Skin Exam: Normal Color, Warm Assessment and Plan - Assessment and Plan (Free Text) Assessment: Assessment/Plan: 57 year old male with PMHx of HTN, IDDMII, GERD and right renal transplant in [place] on 01/18/16 admitted for urosepsis and hyperglycemia. Pt needs IV abx, Day 13/14 Urosepsis -Resolved, remains afebrile -Urine cx on 11/22/17: Klebsiella pneumoniae ssp, sensitive only to meropenem/ ertapenem -Repeat urine cx on 11/27/17, negative -Immunocompromised s/p right renal transplant -Leukocytosis resolved, afebrile, asymptomatic -c/w meropenem 500mg IVP Q8 (day 13 of 14) -ID and nephrology on board -blood cx 11/22: No growth final -Renal US on 11/23/17: Unremarkable transplanted kidney -prostate u/s 12/01/17: unremarkable; no evidence of abscess IDDMII -A1C: 9.0, Improving hyperglycemia with new regime -Increase levemir to 23 units q12 -Continue metformin 500 mg po BID -MDSS scale with hypoglycemic protocol -Consistent carbohydrate renal diet -Accuchecks ACHS Elevated Ferritin level -Likely 2/2 to acute infection, trending down -last blood transfusion 2 yrs ago -Ferritin level 2270 on 11/23/17, repeat Ferritin 1410 (12/02/17) -Hematology on board, recommendation appreciated Hypertension -Controlled, Asymptomatic -c/w home meds Right renal transplant -c/w home medications -Renal us: Unremarkable transplanted kidney Anemia -Likely anemia of chronic disease, stable -H&H: 11/34.3 -Retic count: 2.0; vitamin B12: 372, folate 16.5 -C/W ferrous sulfate daily -C/w procrit 4000 units/ml SC qweekly (as per home med, okayed by nephro/heme) -Heme/nephro on board -FOBT: neg Hyperlipidemia: -ASCVD risk 19.3% -c/w Atorvastatin 40 mg po daily DVT prophylaxis -SCD'S -Lovenox 40 mg SC daily
--- NOTE | 2017-12-06 12:52 | CP.PCM.PN ---
Subjective - Date & Time of Evaluation Date of Evaluation: 12/06/17 Time of Evaluation: 12:30 - Subjective Subjective: Pt states that he feels better Appears comfortable Objective - Vital Signs/Intake and Output Vital Signs (last 24 hours): Temp Pulse Resp BP Pulse Ox 97.8 F 67 20 95/61 L 97 12/06/17 08:11 12/06/17 08:11 12/06/17 08:11 12/06/17 08:11 12/06/17 08:11 - Medications Medications: Current Medications Acetaminophen (Tylenol 325mg Tab) 650 mg PO Q6 PRN PRN Reason: Fever >100.4 F Last Admin: 11/23/17 08:40 Dose: 650 mg Atorvastatin Calcium (Lipitor) 40 mg PO DAILY [facility] Last Admin: 12/06/17 08:05 Dose: 40 mg Bisoprolol Fumarate (Zebeta) 2.5 mg PO DAILY [facility] Last Admin: 12/06/17 08:04 Dose: 2.5 mg Cilostazol (Pletal) 50 mg PO DAILY [facility] Last Admin: 12/06/17 08:03 Dose: 50 mg Enoxaparin Sodium (Lovenox) 40 mg SC DAILY [facility] PRN Reason: Protocol Last Admin: 12/06/17 08:03 Dose: 40 mg Epoetin Jamaal (Procrit) 4,000 unit SC QWK [facility] Hydrochlorothiazide (Hydrodiuril) 25 mg PO DAILY [facility] Last Admin: 12/06/17 08:07 Dose: 25 mg Meropenem 500 mg/ Sodium (Chloride) 100 mls @ 100 mls/hr IVPB Q8 [facility] PRN Reason: Protocol Stop: 12/08/17 10:46 Last Admin: 12/06/17 08:03 Dose: 100 mls/hr Insulin Detemir (Levemir) 23 units SC Q12 [facility] Last Admin: 12/06/17 08:05 Dose: 23 units Insulin Human Regular (Humulin R) 0 units SC ACCU-CHECK [facility] PRN Reason: Protocol Last Admin: 12/06/17 12:10 Dose: 2 units Metformin HCl (Glucophage) 500 mg PO BID [facility] Last Admin: 12/06/17 08:03 Dose: 500 mg Mycophenolate Mofetil (Cellcept) 500 mg PO QPM [facility] Last Admin: 12/05/17 17:18 Dose: 500 mg Mycophenolate Mofetil (Cellcept Cap) 750 mg PO QAM [facility] Last Admin: 12/06/17 08:03 Dose: 750 mg Pantoprazole Sodium (Protonix Ec Tab) 20 mg PO DAILY [facility] Last Admin: 12/06/17 08:04 Dose: 20 mg Saccharomyces Boulardii (Florastor) 250 mg PO BID [facility] Last Admin: 12/06/17 08:03 Dose: 250 mg Tacrolimus (Prograf Cap) 2 mg PO Q12 [facility] Last Admin: 12/06/17 08:05 Dose: 2 mg - Labs Labs: 12/04/17 05:30 12/05/17 05:50 - Constitutional Appears: No Acute Distress - ENT Exam ENT Exam: Mucous Membranes Moist - Respiratory Exam Respiratory Exam: NORMAL BREATHING PATTERN Additional comments: Lungs clear - Cardiovascular Exam Cardiovascular Exam: REGULAR RHYTHM, +S1, +S2 - GI/Abdominal Exam GI & Abdominal Exam: Soft Additional comments: Nontender - Extremities Exam Additional comments: Trace edema of Rt leg Assessment and Plan - Assessment and Plan (Free Text) Assessment: UTI with Klebsiella Kidney Transplant HTN Currently BP is on low side DM Plan: Labs reviewed. High BUN & low BP noted Suggest to hold HCTZ entill BP is more stable Repeat BMP ir ordered
[2017-12-06 15:21] LABS: SQUAMOUS EPITHIAL < 1 /hpf (0-5); URINE BILIRUBIN NEGATIVE (NEGATIVE); URINE BLOOD SMALL (NEGATIVE); URINE CLARITY CLEAR (Clear); URINE COLOR STRAW (YELLOW); URINE GLUCOSE (UA) NEG (Normal); URINE LEUKOCYTE ESTERASE NEG Leu/uL (Negative); URINE PROTEIN NEGATIVE (NEGATIVE); URINE UROBILINOGEN 0.2-1.0 mg/dL (0.2-1.0)
[2017-12-07] MEDS: Meropenem 500 MG in Sodium Chloride 0.9% 100 ML IVPB SCH ×3 (00:18→17:15)
[2017-12-07 06:52] LABS: ALBUMIN 3.7 g/dL (3.5-5.0); ALT/SGPT 57 U/L (21-72); AST/SGOT 34 U/L (17-59); BASO # 0.1 K/uL (0.0-0.2); BASO % 0.7 % (0.0-2.0); BLOOD UREA NITROGEN 47 mg/dl (9-20); CALCIUM 10.2 mg/dL (8.4-10.2); EOS # 0.2 K/uL (0.0-0.7); EOS % 1.5 % (0.0-4.0); GFR AFRICAN-AMERICAN > 60; GFR NON-AFRICAN AMERICAN > 60; HEMOGLOBIN 10.9 g/dL (12.0-18.0); LYMPH # 2.2 K/uL (1.0-4.3); LYMPH % 22.4 % (20.0-40.0); MEAN CELL VOLUME 85.1 fl (80.0-94.0); MEAN CORPUSCULAR HEMOGLOBIN 26.9 pg (27.0-31.0); MEAN CORPUSCULAR HGB CONC 31.6 g/dL (33.0-37.0); MONO # 0.7 K/uL (0.0-0.8); MONO % 7.4 % (0.0-10.0); NEUT # 6.6 K/uL (1.8-7.0); RBC 4.07 Mil/uL (4.40-5.90); WHITE BLOOD COUNT 9.7 K/uL (4.8-10.8)
[2017-12-07] MEDS: Insulin Regular 100 units/ml SC SCH ×3 (07:07→17:17)
[2017-12-07 08:20] VITALS: RESP 20
[2017-12-07] MEDS: Saccharomyces Boulardi 250 mg Cap PO SCH ×2 (08:43→17:16)
[2017-12-07] MEDS: Insulin Detemir 100 Units/ml Inj SC SCH (08:44)
[2017-12-07] MEDS: Enoxaparin 40 mg Syringe SC SCH (08:45)
[2017-12-07] MEDS: Cilostazol 50 mg Tab UD PO SCH (08:46)
[2017-12-07] MEDS: Pantoprazole 20 mg EC Tab PO SCH (08:46)
--- NOTE | 2017-12-07 13:09 | CP.PCM.PN ---
Subjective - Date & Time of Evaluation Date of Evaluation: 12/07/17 Time of Evaluation: 12:45 - Subjective Subjective: Pt states that he feels well. No complaints reported Objective - Vital Signs/Intake and Output Vital Signs (last 24 hours): Temp Pulse Resp BP Pulse Ox 98.0 F 63 20 122/71 100 12/07/17 08:19 12/07/17 08:19 12/07/17 08:19 12/07/17 08:19 12/07/17 08:19 - Medications Medications: Current Medications Acetaminophen (Tylenol 325mg Tab) 650 mg PO Q6 PRN PRN Reason: Fever >100.4 F Last Admin: 11/23/17 08:40 Dose: 650 mg Atorvastatin Calcium (Lipitor) 40 mg PO DAILY [facility] Last Admin: 12/07/17 08:45 Dose: 40 mg Bisoprolol Fumarate (Zebeta) 2.5 mg PO DAILY [facility] Last Admin: 12/07/17 08:46 Dose: 2.5 mg Cilostazol (Pletal) 50 mg PO DAILY [facility] Last Admin: 12/07/17 08:46 Dose: 50 mg Enoxaparin Sodium (Lovenox) 40 mg SC DAILY [facility] PRN Reason: Protocol Last Admin: 12/07/17 08:45 Dose: 40 mg Epoetin Jamaal (Procrit) 4,000 unit SC QWK [facility] Hydrochlorothiazide (Hydrodiuril) 25 mg PO DAILY [facility] Last Admin: 12/06/17 08:07 Dose: 25 mg Meropenem 500 mg/ Sodium (Chloride) 100 mls @ 100 mls/hr IVPB Q8 [facility] PRN Reason: Protocol Stop: 12/08/17 10:46 Last Admin: 12/07/17 08:45 Dose: 100 mls/hr Insulin Detemir (Levemir) 23 units SC Q12 [facility] Last Admin: 12/07/17 08:44 Dose: 23 units Insulin Human Regular (Humulin R) 0 units SC ACCU-CHECK [facility] PRN Reason: Protocol Last Admin: 12/07/17 07:07 Dose: Not Given Metformin HCl (Glucophage) 500 mg PO BID [facility] Last Admin: 12/07/17 08:43 Dose: 500 mg Mycophenolate Mofetil (Cellcept) 500 mg PO QPM [facility] Last Admin: 12/06/17 17:03 Dose: 500 mg Mycophenolate Mofetil (Cellcept Cap) 750 mg PO QAM [facility] Last Admin: 12/07/17 08:43 Dose: 750 mg Pantoprazole Sodium (Protonix Ec Tab) 20 mg PO DAILY [facility] Last Admin: 12/07/17 08:46 Dose: 20 mg Saccharomyces Boulardii (Florastor) 250 mg PO BID [facility] Last Admin: 12/07/17 08:43 Dose: 250 mg Tacrolimus (Prograf Cap) 2 mg PO Q12 [facility] Last Admin: 12/07/17 08:46 Dose: 2 mg - Labs Labs: 12/07/17 06:10 12/07/17 06:10 - Constitutional Appears: No Acute Distress - Respiratory Exam Respiratory Exam: NORMAL BREATHING PATTERN Additional comments: Lungs clear - Cardiovascular Exam Cardiovascular Exam: REGULAR RHYTHM, +S1, +S2 - GI/Abdominal Exam GI & Abdominal Exam: Soft Additional comments: No tenderness - Extremities Exam Additional comments: Trace Rt foot edema Assessment and Plan - Assessment and Plan (Free Text) Assessment: Recurrent UTI receiving IV Abx per ID S/P kidney Tx. BUn remains high, HCTZ is no hold & BP has improved Plan: Close monitoring of renal function Encouraged Pt to drink plenty of water
--- NOTE | 2017-12-07 13:31 | CP.PCM.DIS ---
Provider - Provider Date of Admission: 11/22/17 13:21 Attending physician: Dang Palacios MD Consults: Hematology/onc Dr. Thornton ID: Dr. Smith Nephro: Dr. Noriega Time Spent in preparation of Discharge (in minutes): 30 Hospital Course - Lab Results Lab Results: Micro Results 11/27/17 15:25 Urine,Clean Catch Urine Culture - Final No Growth (<1,000 CFU/ML) 11/22/17 11:30 Blood-Venous Blood Culture - Final NO GROWTH AFTER 5 DAYS 11/22/17 11:30 Blood-Venous Gram Stain - Final TEST NOT PERFORMED 11/22/17 11:15 Blood-Venous Blood Culture - Final NO GROWTH AFTER 5 DAYS 11/22/17 11:15 Blood-Venous Gram Stain - Final TEST NOT PERFORMED 11/22/17 11:30 Urine,Clean Catch Urine Culture - Final Klebsiella Pneumoniae Ssp Pneu Most Recent Lab Values WBC 9.7 K/uL (4.8-10.8) 12/07/17 06:10 RBC 4.07 Mil/uL (4.40-5.90) L 12/07/17 06:10 Hgb 10.9 g/dL (12.0-18.0) L 12/07/17 06:10 Hct 34.6 % (35.0-51.0) L 12/07/17 06:10 MCV 85.1 fl (80.0-94.0) 12/07/17 06:10 MCH 26.9 pg (27.0-31.0) L 12/07/17 06:10 MCHC 31.6 g/dL (33.0-37.0) L 12/07/17 06:10 RDW 15.0 % (11.5-14.5) H 12/07/17 06:10 Plt Count 195 K/uL (130-400) 12/07/17 06:10 MPV 10.0 fl (7.2-11.7) 12/07/17 06:10 Neut % (Auto) 68.0 % (50.0-75.0) 12/07/17 06:10 Lymph % (Auto) 22.4 % (20.0-40.0) 12/07/17 06:10 Barren % (Auto) 7.4 % (0.0-10.0) 12/07/17 06:10 Eos % (Auto) 1.5 % (0.0-4.0) 12/07/17 06:10 Baso % (Auto) 0.7 % (0.0-2.0) 12/07/17 06:10 Neut # (Auto) 6.6 K/uL (1.8-7.0) 12/07/17 06:10 Lymph # (Auto) 2.2 K/uL (1.0-4.3) 12/07/17 06:10 Barren # (Auto) 0.7 K/uL (0.0-0.8) 12/07/17 06:10 Eos # (Auto) 0.2 K/uL (0.0-0.7) 12/07/17 06:10 Baso # (Auto) 0.1 K/uL (0.0-0.2) 12/07/17 06:10 Neutrophils % (Manual) 81 % (42-75) H 11/22/17 11:30 Band Neutrophils % 1 % (0-2) 11/22/17 11:30 Lymphocytes % (Manual) 6 % (20-50) L 11/22/17 11:30 Monocytes % (Manual) 12 % (0-10) H 11/22/17 11:30 Toxic Granulation Present 11/22/17 11:30 Platelet Estimate Normal (NORMAL) 11/22/17 11:30 Hypochromasia (manual) Slight 11/22/17 11:30 Retic Count 2.0 % (0.5-1.5) H 11/27/17 05:30 pO2 36 mm/Hg (30-55) 11/22/17 11:02 VBG pH 7.35 (7.32-7.43) 11/22/17 11:02 VBG pCO2 41 mmHg (40-60) 11/22/17 11:02 VBG HCO3 22.2 mmol/L 11/22/17 11:02 VBG Total CO2 23.9 mmol/L (22-28) 11/22/17 11:02 VBG O2 Sat (Calc) 73.1 % (40-65) H 11/22/17 11:02 VBG Base Excess -2.8 mmol/L (0.0-2.0) L 11/22/17 11:02 VBG Potassium 4.9 mmol/L (3.6-5.2) 11/22/17 11:02 Sodium 132.0 mmol/L (132-148) 11/22/17 11:02 Chloride 102.0 mmol/L (98-107) 11/22/17 11:02 Glucose 415 mg/dL (75-110) H* 11/22/17 11:02 Lactate 1.5 mmol/L (0.7-2.1) 11/22/17 11:02 FiO2 21.0 % 11/22/17 11:02 Blood Gas Comments Vbg 11/22/17 11:02 Crit Value Called To Magda green r.n. 11/22/17 11:02 Crit Value Called By Talon 11/22/17 11:02 Crit Value Read Back Y 11/22/17 11:02 Blood Gas Notified Time 1145 11/22/17 11:02 Sodium 140 mmol/l (132-148) 12/07/17 06:10 Potassium 4.8 MMOL/L (3.6-5.0) 12/07/17 06:10 Chloride 107 mmol/L (98-107) 12/07/17 06:10 Carbon Dioxide 23 mmol/L (22-30) 12/07/17 06:10 Anion Gap 15 (10-20) 12/07/17 06:10 BUN 47 mg/dl (9-20) H 12/07/17 06:10 Creatinine 1.2 mg/dl (0.8-1.5) 12/07/17 06:10 Est GFR ( Amer) > 60 12/07/17 06:10 Est GFR (Non-Af Amer) > 60 12/07/17 06:10 POC Glucose (mg/dL) 154 mg/dL (65-110) H 12/07/17 10:42 Random Glucose 124 mg/dL (75-110) H 12/07/17 06:10 Hemoglobin A1c 9.0 % (4.2-6.5) H D 11/23/17 06:05 Calcium 10.2 mg/dL (8.4-10.2) 12/07/17 06:10 Iron 25 ug/dL (49-181) L 11/23/17 10:51 TIBC 204 ug/dL (250-450) L 11/23/17 10:51 % Saturation 12 % (20-55) L 11/23/17 10:51 Ferritin 1410.0 ng/Ml (17.9-464) H 12/02/17 07:15 Total Bilirubin 0.4 mg/dl (0.2-1.3) 12/07/17 06:10 AST 34 U/L (17-59) 12/07/17 06:10 ALT 57 U/L (21-72) 12/07/17 06:10 Alkaline Phosphatase 92 U/L (38-126) 12/07/17 06:10 Total Protein 7.3 G/DL (6.3-8.2) 12/07/17 06:10 Albumin 3.7 g/dL (3.5-5.0) 12/07/17 06:10 Globulin 3.6 gm/dL (2.2-3.9) 12/07/17 06:10 Albumin/Globulin Ratio 1.0 (1.0-2.1) 12/07/17 06:10 Triglycerides 190 mg/DL (0-149) H D 11/23/17 06:05 Cholesterol 167 mg/dL (0-199) 11/23/17 06:05 LDL Cholesterol Direct 71 mg/dL (0-129) 11/23/17 06:05 HDL Cholesterol 27 MG/DL (30-70) L 11/23/17 06:05 Lipase 20 U/L (23-300) L 11/22/17 11:30 Vitamin B12 372 pg/mL (239-931) 11/27/17 05:30 Folate 16.5 ng/mL 11/27/17 05:30 PTH Intact Whole Molec 45 pg/mL (14-64) 11/24/17 13:41 Venous Blood Potassium 4.9 mmol/L (3.6-5.2) 11/22/17 11:02 Urine Color Straw (YELLOW) 12/06/17 15:00 Urine Clarity Clear (Clear) 12/06/17 15:00 Urine pH 6.0 (5.0-8.0) 12/06/17 15:00 Ur Specific [place] 1.011 (1.003-1.030) 12/06/17 15:00 Urine Protein Negative mg/dL (NEGATIVE) 12/06/17 15:00 Urine Glucose (UA) Neg mg/dL (Normal) 12/06/17 15:00 Urine Ketones Negative mg/dL (NEGATIVE) 12/06/17 15:00 Urine Blood Small (NEGATIVE) 12/06/17 15:00 Urine Nitrate Negative (NEGATIVE) 12/06/17 15:00 Urine Bilirubin Negative (NEGATIVE) 12/06/17 15:00 Urine Urobilinogen 0.2-1.0 mg/dL (0.2-1.0) 12/06/17 15:00 Ur Leukocyte Esterase Neg Evon/uL (Negative) 12/06/17 15:00 Urine RBC (Auto) 5 /hpf (0-3) H 12/06/17 15:00 Urine WBC Clumps (Auto) Few /hpf (NONE) H 11/22/17 11:30 Urine Microscopic WBC 2 /hpf (0-5) 12/06/17 15:00 Ur Squamous Epith Cells < 1 /hpf (0-5) 12/06/17 15:00 Urine Bacteria Many (<OCC) H 11/22/17 11:30 Ur Random Creatinine 62.1 mg/dL 11/24/17 12:44 U Random Total Protein 53 mg/L 11/24/17 12:44 Stool Occult Blood Negative (NEGATIVE) 11/26/17 15:33 Tacrolimus (LC/MS/MS) 16.0 mcg/L (5.0-20.0) 11/24/17 06:05 IgA 347.5 mg/dL (70.0-400.0) 11/25/17 05:55 Rheumatoid Factor IgG <5 U (<=6) 11/25/17 05:55 Rheumatoid Factor IgA <5 U (<=6) 11/25/17 05:55 Rheumatoid Factor IgM <5 U (<=6) 11/25/17 05:55 JERED Nuclear Membr Pat Negative (Negative) 11/25/17 05:55 HIV 1&2 Ag/Ab, 4th Gen Nonreactive (Nonreactive) 11/23/17 06:05 - Hospital Course Hospital Course: 57 YO male with PMHx of HTN, IDDMII, GERD and right renal transplant in [facility] in 01/18/16 admitted for urosepsis and hyperglycemia. Urine culture was sig for Klebsiella pneumonia sensitive only to Ertapenam and Meropenam. Pt received a total of 14 days of abx (Meropenem) per ID. Repeat urine culture was neg, blood culture neg. During hospital stay, Hctz 25mg PO daily was held due to hypotension, PMD can continue if needed post d/c. Follow up in [facility] in 12/15/17 @ 3:[address] Wolf and given information about Nephrology, Dr. Mcmahon; [facility] was contacte, they will call patient for appointment. Continue Home Meds: Atorvastatin Calcium (Lipitor) 40 mg PO DAILY [facility] Bisoprolol Fumarate (Zebeta) 2.5 mg PO DAILY [facility] Cilostazol (Pletal) 50 mg PO DAILY [facility] Epoetin Jamaal (Procrit) 4,000 unit SC QWK [facility] Insulin Detemir (Levemir) 23 units SC Q12 [facility] Metformin HCl (Glucophage) 500 mg PO BID [facility] Mycophenolate Mofetil (Cellcept) 500 mg PO QPM [facility] Mycophenolate Mofetil (Cellcept Cap) 750 mg PO QAM [facility] Pantoprazole Sodium (Protonix Ec Tab) 20 mg PO DAILY [facility] Saccharomyces Boulardii (Florastor) 250 mg PO BID [facility] Tacrolimus (Prograf Cap) 2 mg PO Q12 [facility] Ferrous sulfate 325mg 1 Tab PO daily Discharge Exam - Head Exam Head Exam: ATRAUMATIC, NORMAL INSPECTION - Eye Exam Eye Exam: EOMI - ENT Exam ENT Exam: Mucous Membranes Moist - Respiratory Exam Respiratory Exam: Clear to PA & Lateral, NORMAL BREATHING PATTERN. absent: Wheezes - Cardiovascular Exam Cardiovascular Exam: REGULAR RHYTHM, +S1, +S2 - GI/Abdominal Exam GI & Abdominal Exam: Normal Bowel Sounds. absent: Soft, Tenderness Additional comments: RLQ old scar from renal transplant RLQ abdominal hernia around incision site - Extremities Exam Extremities exam: full ROM, pedal edema (Pedal edema Rt foot only) - Back Exam Back exam: NORMAL INSPECTION. absent: CVA tenderness (L), CVA tenderness (R) - Neurological Exam Neurological exam: Alert, Oriented x3 - Psychiatric Exam Psychiatric exam: Normal Affect, Normal Mood - Skin Skin Exam: Dry, Intact, Normal Color, Warm Discharge Plan - Discharge Medications Prescriptions: MetFORMIN [glucoPHAGE] 500 mg PO BID #60 tab - Follow Up Plan Condition: FAIR Disposition: HOME/ ROUTINE Instructions: Urinary Tract Infection in Men (DC) Additional Instructions: alex con Dr Wolf el a las 3:20pm en [facility] [place] Dr Lex Mcmahon [phone]. [facility] [place] se comunicara con usted cuando tengan alex disponible con el Dr. Mcmahon. tiene que completar la aplicacion de the medical center care en la clinica de [place]. Referrals: [facility] [place] [facility] [Outside] Keshawn Thornton MD [Staff Provider] - Lex Mcmahon MD [Staff Provider] -
[2017-12-07 15:54] VITALS: BP 113/67; PULSE 67; TEMP 97.8; O2SAT 96
== END 2017-12-07 17:55 | disposition home or self-care (01) | DRG 569 ==
LOC: H.ER 09:35 → H.ERHOLD 13:21 → H.MEDSURG1 15:52
PROVIDERS: ADMIT Family Medicine Geriatric Medicine; ATTEND Family Medicine Geriatric Medicine
DX: T86.13 Kidney transplant infection (principal); A41.9 Sepsis, unspecified organism; N17.9 Acute kidney failure, unspecified; T83.511A Infection and inflammatory reaction due to indwelling urethral catheter, initial encounter; E11.65 Type 2 diabetes mellitus with hyperglycemia; B96.1 Klebsiella pneumoniae [K. pneumoniae] as the cause of diseases classified elsewhere; E11.621 Type 2 diabetes mellitus with foot ulcer; L97.419 Non-pressure chronic ulcer of right heel and midfoot with unspecified severity; N39.0 Urinary tract infection, site not specified; T86.12 Kidney transplant failure; I10 Essential (primary) hypertension; Z88.8 Allergy status to other drugs, medicaments and biological substances; I87.2 Venous insufficiency (chronic) (peripheral); K21.9 Gastro-esophageal reflux disease without esophagitis; D63.8 Anemia in other chronic diseases classified elsewhere; E78.5 Hyperlipidemia, unspecified; Z16.24 Resistance to multiple antibiotics; Z79.899 Other long term (current) drug therapy; Z79.4 Long term (current) use of insulin; Z83.3 Family history of diabetes mellitus